=== PATIENT | female | born 1955 | race Caucasian/White ===

== ENCOUNTER 2017-10-30 15:27 | Emergency (ER) | payer BC ==
[2017-10-30] MEDS ORDERED: LIDOCAINE VISCOUS 2% 15 ML UDC MM STA (15:37)
[2017-10-30] MEDS ORDERED: MAG HYDROX/AL HYDROX/SIMETH 30 ML UDC PO STA (15:37)
[2017-10-30] MEDS ORDERED: ASPIRIN CHEW 81 MG TABLET PO STA (15:37)
--- NOTE | 2017-10-30 15:40 | ED Physician Documentation ---
PD HPI CHEST PAIN - Stated complaint Stated Complaint: CHEST PX - History obtained from History obtained from: Patient - History of Present Illness Timing - onset: Other (Sudden onset substernal chest pressure like cramping in her chest radiating to the jaw for half an hour starting at rest. She is a little more short of breath than she has been, she been on steroids undergoing a taper for the last month for asthma and pneumonia. She also felt briefly nauseous and sweaty because of the pain. She denies any pedal edema or recent travel. She has no known heart or coronary disease.) Review of Systems Ten Systems: 10 systems reviewed and negative Constitutional: denies: Fever, Chills Nose: denies: Rhinorrhea / runny nose, Congestion Cardiac: reports: Chest pain / pressure. denies: Palpitations, Pedal edema, Calf pain Respiratory: reports: Dyspnea. 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 - Present Medications Home Medications: Ambulatory Orders Medication Instructions Recorded Confirmed Esomeprazole Magnesium [Nexium] 20 mg PO DAILY 10/30/17 10/30/17 Estradiol 0.5 mg PO DAILY 10/30/17 10/30/17 Gabapentin 300 mg PO DAILY 10/30/17 10/30/17 Levothyroxine Sodium 50 mcg PO DAILY 10/30/17 10/30/17 Prednisone 10 mg PO DAILY 10/30/17 10/30/17 Venlafaxine [Effexor] 75 mg PO BID 10/30/17 10/30/17 - Allergies Allergies/Adverse Reactions: Allergies Allergy/AdvReac Type Severity Reaction Status Date / Time codeine AdvReac Itching Verified 10/30/17 15:57 - Social History Does the pt have substance abuse?: No - Family History Family history: reports: Non contributory PD ED PE NORMAL - Vitals Vital signs reviewed: Yes - General General: Alert and oriented X 3, Other (uncomfortable d/t pain) - HEENT HEENT: PERRL, EOMI - Neck Neck: Supple, no meningeal sign, No bony TTP - Cardiac Cardiac: RRR, No murmur - Respiratory Respiratory: No respiratory distress, Clear bilaterally - Abdomen Abdomen: Soft, Non tender - Back Back: No CVA TTP, No spinal TTP - Derm Derm: Normal color, Warm and dry - Extremities Extremities: No edema, No calf tenderness / cord - Neuro Neuro: Alert and oriented X 3, Normal speech - Psych Psych: Normal mood, Normal affect Results - Vitals Vitals: Vital Signs - 24 hr 10/30/17 10/30/17 10/30/17 16:12 16:34 17:55 Temperature Heart Rate 88 84 72 Respiratory 18 18 18 Rate Blood Pressure 156/90 H 158/84 H 160/89 H O2 Saturation 96 95 96 10/30/17 18:25 Temperature 36.1 C L Heart Rate Respiratory Rate Blood Pressure O2 Saturation Oxygen O2 Source Room air - EKG (time done) 1535 Rate: Rate (enter#) (87) Rhythm: NSR [place]: Normal Intervals: Normal ME QRS: Normal Ischemia: Normal ST segments Computer interpretation: Agree with computer 1609 Rate: Rate (enter#) (90) Rhythm: NSR [place]: Normal Intervals: Normal ME QRS: Normal Ischemia: Normal ST segments Compare to prior EKG: Unchanged from prior EKG (no change from #1) Computer interpretation: Agree with computer - Labs Labs: Laboratory Tests 10/30/17 10/30/17 10/30/17 15:53 16:33 16:33 WBC 13.5 H RBC 4.66 Hgb 14.3 Hct 43.9 MCV 94.1 MCH 30.8 MCHC 32.7 RDW 14.0 Plt Count 357 MPV 8.5 Neut # Not Reportable Lymph # Not Reportable [place] # Not Reportable Eos # Not Reportable Baso # Not Reportable Absolute Nucleated RBC Not Reportable Total Counted 100 Band Neuts % (Manual) 2 Abnorm Lymph % (Manual) 0 Nucleated RBC % Not Reportable Neutrophils # (Manual) 11.5 H Lymphocytes # (Manual) 1.8 Monocytes # (Manual) 0.3 Eosinophils # (Manual) 0.0 Basophils # (Manual) 0.0 Differential Comment MANUAL DIFFERENTIAL Manual Slide Review Indicated WBC Morphology 1+ VACUOLATION Platelet Estimate NORMAL (130-450,000) Platelet Morphology NORMAL APPEARANCE RBC Morph Micro Appear NORMAL APPEARANCE D-Dimer Sodium 136 Potassium 4.3 Chloride 100 L Carbon Dioxide 23 Anion Gap 13.0 BUN 14 Creatinine 0.8 Estimated GFR (MDRD) 73 L Glucose 160 H Calcium 8.9 Total Bilirubin 0.4 AST 15 ALT 17 Alkaline Phosphatase 53 Total Creatine Kinase 45 CK-MB (CK-2) 1.8 Troponin I < 0.04 Total Protein 6.9 Albumin 4.1 Globulin 2.8 Albumin/Globulin Ratio 1.5 Lipase 24 10/30/17 10/30/17 16:33 18:13 WBC RBC Hgb Hct MCV MCH MCHC RDW Plt Count MPV Neut # Lymph # [place] # Eos # Baso # Absolute Nucleated RBC Total Counted Band Neuts % (Manual) Abnorm Lymph % (Manual) Nucleated RBC % Neutrophils # (Manual) Lymphocytes # (Manual) Monocytes # (Manual) Eosinophils # (Manual) Basophils # (Manual) Differential Comment Manual Slide Review WBC Morphology Platelet Estimate Platelet Morphology RBC Morph Micro Appear D-Dimer 319.3 H Sodium Potassium Chloride Carbon Dioxide Anion Gap BUN Creatinine Estimated GFR (MDRD) Glucose Calcium Total Bilirubin AST ALT Alkaline Phosphatase Total Creatine Kinase CK-MB (CK-2) Troponin I < 0.04 Total Protein Albumin Globulin Albumin/Globulin Ratio Lipase - Rads (name of study) 1v chest Radiology: EMP read contemporaneously (NAD) CTA Chest Radiology: EMP read contemporaneously (NAD) PD MEDICAL DECISION MAKING - ED course ED course: 62-year-old woman with concerning chest pain starting at rest and very acute. EKG was normal and this was followed by a second EKG that was also normal and without interval change. She had no relief with a GI cocktail but did have good relief with morphine. Her pain was gone around 5 PM and she requested discharge. I recommended observation, however she declined, I recommended at least a second troponin and a CT angiogram of the chest given the borderline positive d-dimer and being on estrogens and she agreed with that. Departure - Departure Disposition: 01 Home, Self Care Clinical Impression: Chest pain Qualifiers: Chest pain type: unspecified Qualified Code(s): R07.9 - Chest pain, unspecified Condition: Stable Record reviewed to determine appropriate education?: Yes Instructions: ED Chest Pain Atypical Unkn Cause Comments: Return if chest pain recurs or further new symptoms.Follow-up with your physician, next available appointment. Your blood pressure was elevated today on check into the emergency department. This does not mean that you have hypertension, it is a common phenomenon to come to the emergency department and have elevated blood pressure. I recommend that you see your primary care physician within the week to have it rechecked when you are feeling better.
[2017-10-30] MEDS ORDERED: MORPHINE 2 MG/ML CARPUJECT IVP STA ×2 (15:58→16:18)
[2017-10-30 16:11] LABS: BASOPHILS % (AUTO) 0.6 %; EOSINOPHILS % (AUTO) 0.6 %; HGB - HEMOGLOBIN 14.3 g/dL (12.0-16.0); LYMPHOCYTES % (AUTO) 10.3 %; MEAN CORPUSCULAR HEMOGLOBIN 30.8 pg (27.0-31.0); MEAN CORPUSCULAR HGB CONC 32.7 g/dL (32.0-36.0); MEAN CORPUSCULAR VOLUME 94.1 fL (81.0-99.0); MEAN PLATELET VOLUME 8.5 fL (7.9-10.8); NEUTROPHILS % (AUTO) 85.5 %; PLT - PLATELET COUNT 357 10^3/uL (130-450); RED BLOOD COUNT 4.66 10^6/uL (4.20-5.40); WHITE BLOOD COUNT 13.5 x10^3/uL (4.8-10.8)
[2017-10-30 16:14] LABS: ABNORMAL LYMPHS % (MANUAL) 0 %
[2017-10-30] MEDS ORDERED: NITROGLYCERIN 2% PASTE TOP STA (16:18)
--- NOTE | 2017-10-30 16:21 | XRAY Preliminary Report ---
Exam: XR CHEST 1 VIEW X-RAY IMPRESSION: No acute cardiopulmonary abnormality. [facility] SITE ID: [id number]
--- NOTE | 2017-10-30 16:21 | XRAY Report ---
EXAM: CHEST RADIOGRAPHY EXAM DATE: 10/30/2017 04:11 PM. CLINICAL HISTORY: Chest pain. COMPARISON: None. TECHNIQUE: 1 view. FINDINGS: Lungs/Pleura: No focal opacities evident. No pleural effusion. No pneumothorax. Mediastinum: Within exam limitations, the cardiomediastinal contour is normal. Other: There are bilateral breast implant capsular calcifications. IMPRESSION: No acute cardiopulmonary abnormality. [facility] Referring Provider Line: [phone] SITE ID: [id number]
[2017-10-30 16:34] LABS: BAND NEUTROPHILS % (MANUAL) 2 %; LYMPHOCYTES # (MANUAL) 1.8 10^3/uL (1.5-3.5); LYMPHOCYTES % (MANUAL) 13 %; MONOCYTES # (MANUAL) 0.3 10^3/uL (0.0-1.0); NEUTROPHILS # (MANUAL) 11.5 10^3/uL (1.5-6.6); NEUTROPHILS % (MANUAL) 83 %; PLATELET ESTIMATE, MANUAL NORMAL (130-450,000) (NORMAL); PLATELET MORPHOLOGY NORMAL APPEARANCE (NORMAL); RBC MORPHOLOGY (MULTIPLE) NORMAL APPEARANCE (NORMAL)
[2017-10-30 16:35] LABS: DIFFERENTIAL COMMENT MANUAL DIFFERENTIAL
[2017-10-30 16:55] LABS: ALBUMIN 4.1 g/dL (3.2-5.5); ALBUMIN/GLOBULIN RATIO 1.5 (1.0-2.2); BILIRUBIN,TOTAL 0.4 mg/dL (0.2-1.0); CALCIUM 8.9 mg/dL (8.5-10.3); CREATININE 0.8 mg/dL (0.4-1.0); TOTAL PROTEIN 6.9 g/dL (6.7-8.2)
[2017-10-30 16:59] LABS: TROPONIN I < 0.04 ng/mL (<0.49)
[2017-10-30 17:02] LABS: CREATINE KINASE MB 1.8 ng/mL (0.6-6.3)
[2017-10-30] MEDS ORDERED: IOPAMIDOL-300 100 ML VIAL ONE (17:21)
[2017-10-30] MEDS ORDERED: IOPAMIDOL-300 100 ML VIAL IVP ONE (18:00)
--- NOTE | 2017-10-30 18:18 | CT Preliminary Report ---
Exam: CT CHEST ANGIO (PE) IMPRESSION: 1. No evidence for pulmonary emboli. 2. No acute findings are seen. [facility] SITE ID: [id number]
--- NOTE | 2017-10-30 18:19 | CT Report ---
EXAM: CT ANGIOGRAM CHEST EXAM DATE: 10/30/2017 05:57 PM. CLINICAL HISTORY: Chest pain. Elevated d-dimer. COMPARISON: None. TECHNIQUE: Routine helical imaging was performed through the chest in the pulmonary arterial phase. I V Contrast: 80 mL Isovue 300. Reconstructions: Coronal 3-D MIP reconstructions.Sagittal and coronal. In accordance with CT protocol optimization, one or more of the following dose reduction techniques w ere utilized for this exam: automated exposure control, adjustment of mA and/or KV based on patient s ize, or use of iterative reconstructive technique. FINDINGS: Pulmonary Arteries: No evidence for pulmonary emboli. Mediastinum: Normal heart size. No thoracic aortic aneurysm. No mediastinal or hilar lymphadenopathy. Upper abdomen: No acute findings are seen. Lungs/pleura: No pneumothorax. No pleural effusion. No consolidation or airspace disease. Small calci fied left upper lobe pulmonary nodule. Bones: No acute bone findings are seen. Bilateral breast implants with calcified ordaz. IMPRESSION: 1. No evidence for pulmonary emboli. 2. No acute findings are seen. [facility] Referring Provider Line: [phone] SITE ID: [id number]
[2017-10-30 18:55] VITALS: BP 139/85
== END 2017-10-30 19:04 | disposition home or self-care (01) ==
LOC: ED 15:27
DX: R07.9 Chest pain, unspecified (principal); R03.0 Elevated blood-pressure reading, without diagnosis of hypertension; E78.00 Pure hypercholesterolemia, unspecified
CPT/HCPCS: 36415; 71045; 71275; 80053; 82550; 82553; 83690; 84484; 85025; 85379; 93005; 96374; 96376; 99284; A9270; Q9967

== ENCOUNTER 2020-09-02 11:31 | Outpatient (CLI) | payer BC, MEDICARE ==
[2020-09-02 12:10] LABS: BASOPHILS # (AUTO) 0.1 10^3/uL (0.0-0.1); BASOPHILS % (AUTO) 0.9 %; EOSINOPHILS # (AUTO) 0.1 10^3/uL (0.0-0.7); EOSINOPHILS % (AUTO) 1.2 %; LYMPHOCYTES # (AUTO) 2.2 10^3/uL (1.5-3.5); LYMPHOCYTES % (AUTO) 30.1 %; MEAN CORPUSCULAR HEMOGLOBIN 30.8 pg (27.0-31.0); MEAN CORPUSCULAR HGB CONC 31.7 g/dL (32.0-36.0); MEAN CORPUSCULAR VOLUME 97.1 fL (81.0-99.0); MEAN PLATELET VOLUME 9.5 fL (7.9-10.8); MONOCYTES # (AUTO) 0.4 10^3/uL (0.0-1.0); MONOCYTES % (AUTO) 5.6 %; NEUTROPHILS # (AUTO) 4.6 10^3/uL (1.5-6.6); NEUTROPHILS % (AUTO) 61.8 %; PLT - PLATELET COUNT 281 10^3/uL (130-450); RED BLOOD COUNT 4.54 10^6/uL (4.20-5.40); RED CELL DISTRIBUTION WIDTH 13.1 % (12.0-15.0); WHITE BLOOD COUNT 7.5 x10^3/uL (4.8-10.8)
[2020-09-02 12:17] LABS: PT - PROTHROMBIN TIME 11.6 secs (9.9-12.6)
[2020-09-02 12:31] LABS: ALBUMIN 4.2 g/dL (3.2-5.5); ALBUMIN/GLOBULIN RATIO 1.6 (1.0-2.2); ALKALINE PHOSPHATASE 58 IU/L (42-121); ALT ALANINE AMINOTRANSFERASE 17 IU/L (10-60); AST ASPARTATE AMINOTRANSFERASE 14 IU/L (10-42); BILIRUBIN,TOTAL 0.6 mg/dL (0.2-1.0); BUN - BLOOD UREA NITROGEN 15 mg/dL (6-20); CALCIUM 9.3 mg/dL (8.5-10.3); CARBON DIOXIDE - CO2 27 mmol/L (21-32); CHLORIDE 100 mmol/L (101-111); CHOL/HDL RATIO 3.8 (<4.4); CHOLESTEROL 290 mg/dL; CREATININE 0.8 mg/dL (0.4-1.0); GLUCOSE 133 mg/dL (70-100); HDL CHOLESTEROL 76 mg/dL; LDL CHOLESTEROL,CALCULATED 191 mg/dL; LDL/HDL RATIO 2.5 (<4.4); SODIUM 138 mmol/L (135-145); TOTAL PROTEIN 6.9 g/dL (6.7-8.2); VLDL CHOLESTEROL 23 mg/dL
[2020-09-02 12:47] LABS: HEMOGLOBIN A1c% 7.2 % (4.27-6.07)
== END 2020-09-02 11:32 | disposition home or self-care (01) ==
LOC: LAB 11:31
PROVIDERS: ATTEND Physician Assistant
DX: E78.5 Hyperlipidemia, unspecified (principal); R73.03 Prediabetes; E03.9 Hypothyroidism, unspecified; R23.3 Spontaneous ecchymoses
CPT/HCPCS: 36415; 80053; 80061; 83036; 83721; 84443; 85025; 85610

== ENCOUNTER 2021-02-03 11:18 | Emergency (ER) | payer MEDICARE, BC ==
[2021-02-03] MEDS ORDERED: ONDANSETRON 4 MG/2 ML VIAL IVP STA (12:03)
[2021-02-03] MEDS ORDERED: SODIUM CHLORIDE 0.9% 1,000 ML IV STA (12:03)
--- NOTE | 2021-02-03 12:31 | ED Physician Documentation ---
History of Present Illness - Stated complaint Stated Complaint: NAUSEA - Chief complaint Chief Complaint: General - Additonal information Additional information: 65-year-old female presents emergency department for evaluation of headache naus ea and vomiting that began yesterday when she is applying her make-up before going out for [employer]. She reports that yesterday she vomited 3 times. She denies that she had chest pain shortness of air any abdominal pain with the symptoms. When she returned home yesterday afternoon she slept most of the day. 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 She denies recent travel sick contacts at home. She is fully vaccinated against Covid. Patient denies any history of hypertension or diabetes. She is however a smoker. Takes no prescribed medications. Review of Systems Constitutional: denies: Fever, Chills Eyes: reports: Reviewed and negative Ears: denies: Loss of hearing, Tinnitus/ringing Nose: reports: Reviewed and negative Throat: reports: Reviewed and negative Cardiac: denies: Chest pain / pressure, Palpitations Respiratory: denies: Dyspnea, Cough GI: reports: Nausea, Vomiting. denies: Abdominal Pain, Constipation, Diarrhea : denies: Dysuria, Frequency, Hesitancy Skin: denies: Rash, Lesions Musculoskeletal: reports: Other (chronic arthritis) Neurologic: reports: Headache. 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 - Present Medications Home Medications: Ambulatory Orders Medication Instructions Recorded Confirmed Levothyroxine Sodium 100 mcg PO DAILY 10/30/17 02/03/21 Prednisone 80 mg PO PRN PRN 10/30/17 02/03/21 Venlafaxine [Effexor] 150 mg PO DAILY 10/30/17 10/30/17 estradioL [Estradiol] 2 mg PO DAILY 10/30/17 02/03/21 Methotrexate [Methotrexate Sodium] 8 mg PO BID 02/03/21 02/03/21 traMADol [Ultram] 50 mg PO PRN PRN 02/03/21 02/03/21 - Allergies Allergies/Adverse Reactions: Allergies Allergy/AdvReac Type Severity Reaction Status Date / Time codeine AdvReac Itching Verified 10/30/17 15:57 dupilumab [From Dupixent Pen] AdvReac Rash Verified 02/03/21 11:29 - Social History Does the pt smoke?: Yes Smoking Status: Current every day smoker Does the pt drink ETOH?: No Does the pt have substance abuse?: No - Immunizations Immunizations are current?: Yes - POLST Patient has POLST: No PD ED PE EXPANDED - General General: Alert, No acute distress, Well developed/nourished - HEENT HEENT: PERRL, Ears normal, Moist mucous membranes - Eyes Eyes: PERRL, Normal accommodation, Other (NEGATIVE HINTS exam) - Neck Neck: Supple w/out meningeal sx, No tenderness - Cardiac Cardiac: Regular Rate, Radial strong equal, Cap refill < 2 sec. No: Murmur Present - Respiratory Respiratory: Clear to ausultation gee. No: Distress, Labored - Abdomen Abdomen: Normal Bowel sounds. No: Tender to palpation - Derm Derm: Normal color, Warm and dry. No: Rash - Extremities Extremities: Normal. No: Deformity, Tenderness - Neuro Neuro: Alert and Oriented X 3, CNII-XII intact, Cerebellar nl, Normal gait, Normal finger nose, Normal speech. No: Nystagmus - GCS Eye Opening: Spontaneous Motor: Obeys Commands Verbal: Oriented Total: 15 Results - Vitals Vitals: Vital Signs - 24 hr 02/03/21 02/03/21 11:22 12:57 Temperature 36.1 C L Heart Rate 82 67 Respiratory 14 14 Rate Blood Pressure 177/76 H 143/78 H O2 Saturation 100 100 Oxygen O2 Source Room air - EKG (time done) 1125 Rate: Rate (enter#) (73) Rhythm: NSR [place]: Normal Intervals: Normal [place]. No: Prolonged QT QRS: Low voltage Ischemia: Normal ST segments Compare to prior EKG: Unchanged from prior EKG Computer interpretation: Agree with computer - Labs Labs: Laboratory Tests 02/03/21 02/03/21 02/03/21 12:19 12:19 12:38 WBC 6.0 RBC 4.30 Hgb 13.9 Hct 43.0 MCV 100.0 H MCH 32.3 H MCHC 32.3 RDW 14.9 Plt Count 342 MPV 10.0 Neut # (Auto) 3.8 Lymph # (Auto) 1.6 [place] # (Auto) 0.4 Eos # (Auto) 0.1 Baso # (Auto) 0.0 Absolute Nucleated RBC 0.00 Nucleated RBC % 0.0 Sodium 140 Potassium 4.3 Chloride 103 Carbon Dioxide 27 Anion Gap 10.0 BUN 12 Creatinine 0.7 Estimated GFR (MDRD) 84 L Glucose 112 H Calcium 9.9 Total Bilirubin 0.4 AST 17 ALT 19 Alkaline Phosphatase 64 Total Protein 7.1 Albumin 4.5 Globulin 2.6 Albumin/Globulin Ratio 1.7 Lipase 44 Urine Color LIGHT YELLOW Urine Clarity HAZY Urine pH 5.0 Ur Specific [place] 1.015 Urine Protein NEGATIVE Urine Glucose (UA) NEGATIVE Urine Ketones NEGATIVE Urine Occult Blood NEGATIVE Urine Nitrite NEGATIVE Urine Bilirubin NEGATIVE Urine Urobilinogen 0.2 (NORMAL) Ur Leukocyte Esterase SMALL H Urine RBC 0-5 Urine WBC 11-25 H Ur Squamous Epith Cells MOD Squamous H Urine Bacteria Many H Urine Mucus Marked Strands Ur Microscopic Review INDICATED Urine Culture Comments NOT INDICATED PD MEDICAL DECISION MAKING - ED course Complexity details: reviewed results, re-evaluated patient, d/w patient ED course: 65-year-old female presents the emergency department for evaluation of acute nausea and vomiting that began yesterday. She also has had some associated dizziness that was very brief and occurred a few times after turning her head. She also reported a headache. Headache was not sudden onset nor worst of life. No associated fevers. Here in the emergency department the patient was given a liter of IV fluids Zofran as well as 25 mics of fentanyl with full resolution of symptoms. Her neuro exam was nonfocal. Normal cerebellar exam and a negative hints exam. I was unable to reproduce her dizziness with Von-Hallpike. Screening labs show nothing of concern. Her urine was grossly contaminated and she lacks urinary symptoms therefore will defer antibiotics at this time. I encourage patient to go home get plenty of rest and fluids. Her nausea and vomiting may simply be a viral etiology. No abdominal pain was elicited. I offered her prescription of Zofran but she declined she already has some at home. Emergent return precautions were discussed. Departure - Departure Disposition: 01 Home, Self Care Clinical Impression: Nausea and vomiting Qualifiers: Vomiting type: unspecified Vomiting Intractability: non-intractable Qualified Code(s): R11.2 - Nausea with vomiting, unspecified Condition: Stable Record reviewed to determine appropriate education?: Yes Follow-Up: ARASH WALSH PA-C [Primary Care Provider] - Comments: Milagro ortega are seen in the emergency department today for nausea and vomiting that began yesterday. As we discussed with the exception of a very mildly elevated blood pressure your vital signs are normal. Your screening labs also do not show any worrisome findings. We did give you some IV Zofran as well as a liter of IV fluids which seemed to markedly help your symptoms. The cause of your nausea and vomiting is not clear at this time however it is most likely a viral illness. I do recommend that you get plenty of fluids. Take the Zofran you have at home to help garcia off the nausea and get lots of rest. If at any point you have suddenly severe uncontrolled abdominal pain, fevers uncontrolled vomiting, develop any chest pain shortness of air or fainting episodes please return immediately to the emergency department. Please discuss this emergency department visit with your primary care provider as soon as possible.
[2021-02-03 12:32] LABS: BASOPHILS % (AUTO) 0.7 %; EOSINOPHILS # (AUTO) 0.1 10^3/uL (0.0-0.7); EOSINOPHILS % (AUTO) 1.7 %; HGB - HEMOGLOBIN 13.9 g/dL (12.0-16.0); LYMPHOCYTES # (AUTO) 1.6 10^3/uL (1.5-3.5); MEAN CORPUSCULAR HEMOGLOBIN 32.3 pg (27.0-31.0); MEAN CORPUSCULAR HGB CONC 32.3 g/dL (32.0-36.0); MONOCYTES # (AUTO) 0.4 10^3/uL (0.0-1.0); MONOCYTES % (AUTO) 6.6 %; NEUTROPHILS # (AUTO) 3.8 10^3/uL (1.5-6.6); NEUTROPHILS % (AUTO) 63.5 %; PLT - PLATELET COUNT 342 10^3/uL (130-450); RED CELL DISTRIBUTION WIDTH 14.9 % (12.0-15.0)
[2021-02-03 12:48] LABS: ALBUMIN 4.5 g/dL (3.2-5.5); ALBUMIN/GLOBULIN RATIO 1.7 (1.0-2.2); BILIRUBIN,TOTAL 0.4 mg/dL (0.2-1.0); CALCIUM 9.9 mg/dL (8.5-10.3); CREATININE 0.7 mg/dL (0.4-1.0); POTASSIUM 4.3 mmol/L (3.5-5.0); TOTAL PROTEIN 7.1 g/dL (6.7-8.2)
[2021-02-03 12:51] LABS: BILIRUBIN,URINE NEGATIVE (NEGATIVE); GLUCOSE, URINE (UA) NEGATIVE (NEGATIVE); KETONES,URINE (UA) NEGATIVE (NEGATIVE); LEUKOCYTE ESTERASE, URINE SMALL (NEGATIVE); NITRITE,URINE NEGATIVE (NEGATIVE); OCCULT BLOOD,URINE NEGATIVE (NEGATIVE); PROTEIN,URINE NEGATIVE (NEGATIVE); UROBILINOGEN,URINE 0.2 (NORMAL) E.U./dL (NORMAL)
[2021-02-03 12:53] LABS: CLARITY,URINE HAZY (CLEAR)
[2021-02-03] MEDS ORDERED: fentaNYL 100 MCG/2 ML VIAL IVP STA (12:59)
[2021-02-03 13:21] LABS: RBC,URINE 0-5 /HPF (0-5)
[2021-02-03 13:22] LABS: BACTERIA,URINE Many /HPF (None Seen); MUCUS,URINE Marked Strands; SQUAMOUS EPITHELIAL CELL,UR MOD Squamous (<= Few)
[2021-02-03 13:51] VITALS: BP 170/74
== END 2021-02-03 13:59 | disposition home or self-care (01) ==
LOC: ED 11:18
DX: R11.2 Nausea with vomiting, unspecified (principal); R51.9 Headache, unspecified; R42 Dizziness and giddiness; R03.0 Elevated blood-pressure reading, without diagnosis of hypertension; F17.200 Nicotine dependence, unspecified, uncomplicated
CPT/HCPCS: 36415; 80053; 81001; 81003; 83690; 85025; 87086; 93005; 96361; 96374; 96375; 99284

== ENCOUNTER 2021-04-20 16:31 | Outpatient (CLI) | payer MEDICARE, BC | END 2021-04-20 16:32 | disposition short-term general hospital (02) | LOC: EMS 16:31 | DX: R07.9 Chest pain, unspecified (principal); M54.2 Cervicalgia; M79.602 Pain in left arm; M79.601 Pain in right arm | CPT/HCPCS: A0425; A0427 ==

== ENCOUNTER 2021-06-15 13:28 | Outpatient (CLI) | payer MEDICARE, BC ==
[2021-06-15 13:54] LABS: CALCIUM 9.2 mg/dL (8.5-10.3); CREATININE 0.9 mg/dL (0.4-1.0); POTASSIUM 3.9 mmol/L (3.5-5.0)
== END 2021-06-15 13:29 | disposition home or self-care (01) ==
LOC: LAB 13:28
PROVIDERS: ATTEND Internal Medicine
DX: I10 Essential (primary) hypertension (principal)
CPT/HCPCS: 36415; 80048

== ENCOUNTER 2021-12-04 11:02 | Emergency (ER) | payer MEDICARE, BC ==
[2021-12-04 11:42] LABS: BASOPHILS # (AUTO) 0.1 10^3/uL (0.0-0.1); BASOPHILS % (AUTO) 0.9 %; EOSINOPHILS # (AUTO) 0.1 10^3/uL (0.0-0.7); EOSINOPHILS % (AUTO) 1.1 %; HGB - HEMOGLOBIN 14.3 g/dL (12.0-16.0); LYMPHOCYTES # (AUTO) 1.6 10^3/uL (1.5-3.5); LYMPHOCYTES % (AUTO) 19.4 %; MEAN CORPUSCULAR HEMOGLOBIN 30.9 pg (27.0-31.0); MEAN CORPUSCULAR HGB CONC 32.5 g/dL (32.0-36.0); MEAN PLATELET VOLUME 9.9 fL (7.9-10.8); MONOCYTES # (AUTO) 0.7 10^3/uL (0.0-1.0); MONOCYTES % (AUTO) 8.9 %; NEUTROPHILS # (AUTO) 5.7 10^3/uL (1.5-6.6); NEUTROPHILS % (AUTO) 69.5 %; PLT - PLATELET COUNT 319 10^3/uL (130-450); RED BLOOD COUNT 4.63 10^6/uL (4.20-5.40); RED CELL DISTRIBUTION WIDTH 13.2 % (12.0-15.0); WHITE BLOOD COUNT 8.2 x10^3/uL (4.8-10.8)
--- NOTE | 2021-12-04 11:49 | XRAY Report ---
PROCEDURE: Chest 1 View X-Ray INDICATIONS: Chest pain COMMENTS: CHEST PAIN/ PT STATES A HISTORY OR PA AND STENT PRIORS: ; 10/30/17 TECHNIQUE: One view of the chest was acquired. COMPARISON: 10/30/2017 FINDINGS: Surgical changes and devices: None. Lungs and pleura: No pleural effusions or pneumothorax. Lungs are clear. Mediastinum: Mediastinal contours appear normal. Heart size is normal. Bones and chest wall: No suspicious bony lesions. Overlying soft tissues appear unremarkable. Bila teral calcified breast implants are noted. IMPRESSION: No acute cardiopulmonary abnormality. Reviewed by: Robert Carcamo on 12/04/2021 11:48 AM [facility] Approved by: Robert Carcamo on 12/04/2021 11:48 AM [facility] Station ID: [id number]
--- NOTE | 2021-12-04 11:53 | ED Physician Documentation ---
History of Present Illness - Stated complaint Stated Complaint: CHEST PX - Chief complaint Chief Complaint: Cardiac - Additonal information Additional information: 66-year-old female presents emergency department for evaluation of worsening f atigue and recent episodes of chest pain. She reports to this provider that she had an N STEMI in March 2021. She was treated at [facility]. While there she did have a stent placed in her left circumflex artery. She is on aspirin and Plavix. Over the preceding 5 days she has had occasional bouts of chest pain with radiation to her jaw and arm. Described as pressure-like. The most severe episode 4 days ago lasted about 15 minutes. It did resolve after she chewed aspirin and took her nitroglycerin. 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 She expressed to her nuclear medicine supervisor that she was fatigued and wanted to leave early. Because of the history of recent CA her nuclear medicine supervisor requested that she come to the ER for further evaluation. Patient denies that she has any chest pain right now. Is not scheduled to follow-up with Dr. Henderson for about 1 year. Social: No alcohol. 4 to 5 cigarettes daily. Review of Systems Constitutional: denies: Fever, Chills Throat: reports: Reviewed and negative Cardiac: reports: Chest pain / pressure. 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 - Present Medications Home Medications: Ambulatory Orders Medication Instructions Recorded Confirmed Levothyroxine Sodium 100 mcg PO DAILY 10/30/17 02/03/21 Venlafaxine [Effexor] 150 mg PO DAILY 10/30/17 10/30/17 estradioL [Estradiol] 2 mg PO DAILY 10/30/17 02/03/21 predniSONE [Prednisone] 80 mg PO PRN PRN 10/30/17 02/03/21 Methotrexate [Methotrexate Sodium] 8 mg PO BID 02/03/21 02/03/21 traMADol [Ultram] 50 mg PO PRN PRN 02/03/21 02/03/21 - Allergies Allergies/Adverse Reactions: Allergies Allergy/AdvReac Type Severity Reaction Status Date / Time codeine AdvReac Itching Verified 12/04/21 11:12 dupilumab [From Dupixent Pen] AdvReac Rash Verified 12/04/21 11:12 - Social History Does the pt smoke?: Yes Smoking Status: Current every day smoker Does the pt drink ETOH?: No Does the pt have substance abuse?: No - Immunizations Immunizations are current?: Yes - POLST Patient has POLST: No PD ED PE NORMAL - General General: Alert and oriented X 3, No acute distress - HEENT HEENT: Atraumatic, Moist mucous membranes - Neck Neck: Supple, no meningeal sign, No adenopathy, Thyroid normal - Cardiac Cardiac: RRR, No murmur, No gallop - Respiratory Respiratory: No respiratory distress. 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 Eye Opening: Spontaneous Motor: Obeys Commands Verbal: Oriented GCS Score: 15 - Psych Psych: Normal mood Results - Vitals Vitals: Vital Signs - 24 hr 12/04/21 12/04/21 12/04/21 11:12 11:39 11:47 Temperature 36.8 C 36.6 C Heart Rate 80 80 73 Respiratory 19 16 15 Rate Blood Pressure 149/81 H 149/90 H 143/76 H O2 Saturation 100 100 96 12/04/21 12:36 Temperature Heart Rate 74 Respiratory 14 Rate Blood Pressure 144/90 H O2 Saturation 95 Oxygen O2 Source Room air - EKG (time done) 1106 Rate: Rate (enter#) (79) Rhythm: NSR [place]: Normal Intervals: Normal MI QRS: Normal, Low voltage Ischemia: Normal ST segments Compare to prior EKG: Old EKG unavailable Computer interpretation: Agree with computer - Labs Labs: Laboratory Tests 12/04/21 12/04/21 12/04/21 11:34 11:34 11:34 WBC 8.2 RBC 4.63 Hgb 14.3 Hct 44.0 MCV 95.0 MCH 30.9 MCHC 32.5 RDW 13.2 Plt Count 319 MPV 9.9 Neut # (Auto) 5.7 Lymph # (Auto) 1.6 Wood # (Auto) 0.7 Eos # (Auto) 0.1 Baso # (Auto) 0.1 Absolute Nucleated RBC 0.00 Nucleated RBC % 0.0 Sodium 137 Potassium 3.8 Chloride 101 Carbon Dioxide 26 Anion Gap 10.0 BUN 23 H Creatinine 0.7 Estimated GFR (MDRD) 84 L Glucose 136 H Calcium 9.4 Total Bilirubin 0.4 AST 20 ALT 28 Alkaline Phosphatase 68 Troponin I High Sens 3.3 Total Protein 6.7 Albumin 4.1 Globulin 2.6 Albumin/Globulin Ratio 1.6 Lipase 36 - Rads (name of study) cxr Radiology: Final report received (No acute cardiopulmonary abnormality.) PD MEDICAL DECISION MAKING - ED course Complexity details: reviewed results, re-evaluated patient, considered differential, d/w patient, d/w [employer] commerce consultant (sivakumar) ED course: 66-year-old female who has a history of coronary artery disease status post left circumflex stenting in March 2021 presents to the emergency department for evaluation of intermittent but recurrent chest pain over the last 5 days. None now for 24 hours. Patient reports that she had severe chest pain 3 days ago that was resolved after taking nitroglycerin once. 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 On screening labs and EKG are nonischemic and unchanged. High-sensitivity troponin is negative. Chest x-ray is without acute focal findings. Given the history of coronary artery disease status post stenting and relief of the chest pain over the last few days with nitroglycerin this case was discussed with Dr. Henderson her bag loader. I suspect she has clinically stable angina. She is going to arrange for outpatient ischemic stress testing. Her psych specialist Mrs. Fishman will be calling to arrange that follow-up. Patient is advised that if the chest pain returns and is not resolved despite taking nitroglycerin 2 x 15 minutes apart then she should return immediately to the ER. Departure - Departure Disposition: Home, Self Care Clinical Impression: Chest pain Qualifiers: Chest pain type: chest pain due to myocardial ischemia Ischemic chest pain type: stable angina pectoris Qualified Code(s): I20.8 - Other forms of angina pectoris Condition: Stable Record reviewed to determine appropriate education?: Yes Instructions: Angina Dc Comments: Milagro ortega are seen in the emergency department today for chest pain that occurred over the last few days. Though you did not have any chest pain while here in the ER. Your screening labs, troponin, EKG and chest x-ray are all essentially normal. You do have a history of an NSTEMI in March 2021 which was treated at [facility]. You did receive a stent to there. I discussed this case with Dr. Henderson your bag loader. You can expect that her psych specialist Mrs. Fishman will be giving you a call over the next few days to arrange an outpatient stress test for further evaluation of your heart. If at any point you develop worsening chest pain, your chest pain is not resolved despite taking the nitroglycerin 2 times, 15 minutes apart then you should return return immediately to the ER. Please continue to take all your previously scheduled medications as otherwise prescribed
[2021-12-04 11:59] LABS: ALBUMIN 4.1 g/dL (3.2-5.5); ALBUMIN/GLOBULIN RATIO 1.6 (1.0-2.2); BILIRUBIN,TOTAL 0.4 mg/dL (0.2-1.0); CALCIUM 9.4 mg/dL (8.5-10.3); CREATININE 0.7 mg/dL (0.4-1.0); POTASSIUM 3.8 mmol/L (3.5-5.0); TOTAL PROTEIN 6.7 g/dL (6.7-8.2)
[2021-12-04 13:04] VITALS: BP 140/80
== END 2021-12-04 13:04 | disposition home or self-care (01) ==
LOC: ED 11:02
DX: I25.10 Atherosclerotic heart disease of native coronary artery without angina pectoris (principal); I25.2 Old myocardial infarction; Z95.5 Presence of coronary angioplasty implant and graft; F17.210 Nicotine dependence, cigarettes, uncomplicated
CPT/HCPCS: 36415; 80053; 83690; 84484; 85025; 93005; 99284

== ENCOUNTER 2021-12-22 10:11 | Emergency (ER) | payer MEDICARE, BC ==
--- NOTE | 2021-12-22 10:28 | ED Physician Documentation ---
PD HPI URI - Stated complaint Stated Complaint: FEVER/HEAD PX/COUGH - Chief complaint Chief Complaint: Fever - History obtained from History obtained from: Patient - History of Present Illness Timing - onset: How many days ago (4) Timing duration: Days (4) Timing details: Gradual onset, Still present Associated symptoms: Fever, Chills, Nasal congestion, Dry cough, Dyspnea. No: Hemoptysis Contributing factors: COPD / asthma. No: Sick contact, Travel, Unimmunized Worsened by: Activity, Other (coughing) Similar symptoms before: Diagnosis (history of asthma, with exacerbations due to illnesses in the past.) Recently seen: Not recently seen Review of Systems Constitutional: reports: Fever, Chills, Myalgias Nose: reports: Congestion. denies: Rhinorrhea / runny nose Throat: denies: Sore throat Cardiac: denies: Chest pain / pressure Respiratory: reports: Dyspnea, Cough, Wheezing GI: reports: Nausea. 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 - Present Medications Home Medications: Ambulatory Orders Medication Instructions Recorded Confirmed Levothyroxine Sodium 100 mcg PO DAILY 10/30/17 02/03/21 Venlafaxine [Effexor] 150 mg PO DAILY 10/30/17 10/30/17 estradioL [Estradiol] 2 mg PO DAILY 10/30/17 02/03/21 predniSONE [Prednisone] 80 mg PO PRN PRN 10/30/17 02/03/21 Methotrexate [Methotrexate Sodium] 8 mg PO BID 02/03/21 02/03/21 traMADol [Ultram] 50 mg PO PRN PRN 02/03/21 02/03/21 Amoxicillin 500 mg PO TID #18 cap 12/22/21 Benzonatate [Tessalon] 100 mg PO TID PRN #20 cap 12/22/21 - Allergies Allergies/Adverse Reactions: Allergies Allergy/AdvReac Type Severity Reaction Status Date / Time codeine AdvReac Itching Verified 12/22/21 10:19 dupilumab [From Ahandyhand Pen] AdvReac Rash Verified 12/22/21 10:19 - Social History Does the pt smoke?: Yes Smoking Status: Current every day smoker Does the pt drink ETOH?: No Does the pt have substance abuse?: No - Immunizations Immunizations are current?: Yes - POLST Patient has POLST: No PD ED PE NORMAL - Vitals Vital signs reviewed: Yes - General General: Alert and oriented X 3, No acute distress, Well developed/nourished - HEENT HEENT: Ears normal, Pharynx benign - Neck Neck: Supple, no meningeal sign, No adenopathy - Cardiac Cardiac: RRR, No murmur - Respiratory Respiratory: No respiratory distress. No: Other (wheezing diffusely bilaterally without coarse sounds.) - Abdomen Abdomen: Soft, Non tender - Back Back: No CVA TTP - Derm Derm: Normal color, Warm and dry - Extremities Extremities: No edema, No calf tenderness / cord - Neuro Neuro: Alert and oriented X 3, No motor deficit, Normal speech Results - Vitals Vitals: Vital Signs - 24 hr 12/22/21 12/22/21 12/22/21 10:15 10:55 11:49 Temperature 36.1 C L Heart Rate 97 80 74 Respiratory 16 20 16 Rate Blood Pressure 137/80 H 122/85 H O2 Saturation 99 95 Oxygen O2 Source Room air - Labs Labs: Laboratory Tests 12/22/21 10:50 Nasal Adenovirus (PCR) NOT DETECTED Nasal B. parapertussis DNA (PCR) NOT DETECTED Nasal Coronavir 229E PCR NOT DETECTED Nasal Coronavir HKU1 PCR NOT DETECTED Nasal Coronavir NL63 PCR NOT DETECTED Nasal Coronavir OC43 PCR NOT DETECTED Nasal Enterovir/Rhinovir PCR NOT DETECTED Nasal Influenza B PCR NOT DETECTED Nasal Influenza A PCR NOT DETECTED Nasal Parainfluen 1 PCR NOT DETECTED Nasal Parainfluen 2 PCR NOT DETECTED Nasal Parainfluen 3 PCR DETECTED A Nasal Parainfluen 4 PCR NOT DETECTED Nasal RSV (PCR) NOT DETECTED Nasal B.pertussis DNA PCR NOT DETECTED Nasal C.pneumoniae (PCR) NOT DETECTED Hao Human Metapneumo PCR NOT DETECTED Nasal M.pneumoniae (PCR) NOT DETECTED Nasal SARS-CoV-2 (PCR) NOT DETECTED - Rads (name of study) chest xray Radiology: Prelim report reviewed (no infiltrates), See rad report PD MEDICAL DECISION MAKING - ED course Complexity details: reviewed results, re-evaluated patient (improved moderately with Duoneb. She has nebulizer at home. Has Prednisone at home. ), considered differential (she would like to go home and be called about the Resp Panel. ), d/w patient Departure - Departure Disposition: 01 Home, Self Care Clinical Impression: Dyspnea Exacerbation of asthma Qualifiers: Asthma severity: unspecified severity Asthma persistence: intermittent Qualified Code(s): J45.21 - Mild intermittent asthma with (acute) exacerbation Upper respiratory infection Qualifiers: URI type: unspecified URI Qualified Code(s): J06.9 - Acute upper respiratory infection, unspecified Condition: Stable Follow-Up: ARASH WALSH PA-C [Primary Care Provider] - Prescriptions: Amoxicillin 500 mg PO TID #18 cap Benzonatate [Tessalon] 100 mg PO TID PRN #20 cap PRN Reason: Cough Comments: Your chest x-ray is clear without any signs of pneumonia. Your respiratory panel test is still pending and should result later. We will call you if with the results. I would suggest continuing with your nebulizer 4 times a day regularly for the next several days to week and then as needed. Continue your other usual medicines. I would suggest using your prednisone 20 mg daily for the next 4 to 5 days and then discontinue. You can add in Tessalon/benzonatate if needed for cough. If not improving well over the next couple of days, you could consider adding amoxicillin antibiotic as directed. Your illness is more likely to be viral but there are guidelines that suggest the use of antibiotics in the setting of underlying lung disease such as COPD or asthma if not improving well. Forms: Activity restrictions Discharge Date/Time: 12/22/21 11:50
[2021-12-22] MEDS ORDERED: CHERRY SYRUP 10 ML UDC PO ONE (10:43)
[2021-12-22] MEDS ORDERED: BENZONATATE 100 MG CAPSULE PO STA (10:43)
[2021-12-22] MEDS ORDERED: IPRATROPIUM/ALBUTEROL 3 ML NEB INH STA (10:43)
[2021-12-22] MEDS ORDERED: DEXAMETHASONE 10 MG/ML VIAL PO STA (10:43)
--- NOTE | 2021-12-22 10:58 | XRAY Report ---
PROCEDURE: Chest 1 View X-Ray INDICATIONS: chest pain TECHNIQUE: One view of the chest was acquired. COMPARISON: 12/04/2021 FINDINGS: Surgical changes and devices: Bilateral breast implants.. Lungs and pleura: No pleural effusions or pneumothorax. Lungs are clear. Mediastinum: Mediastinal contours appear normal. Heart size is normal. Bones and chest wall: No suspicious bony lesions. Overlying soft tissues appear unremarkable. IMPRESSION: No acute cardiopulmonary disease. Reviewed by: Mary Ann Vaca MD on 12/22/2021 10:57 AM PDT Approved by: Mary Ann Vaca MD on 12/22/2021 10:57 AM PDT Station ID: [id number]
[2021-12-22 11:50] VITALS: BP 122/85
[2021-12-22 11:58] LABS: CORONAVIRUS 229E-RESP PCR NOT DETECTED; CORONAVIRUS HKU1-RESP PCR NOT DETECTED; CORONAVIRUS NL63-RESP PCR NOT DETECTED; CORONAVIRUS OC43-RESP PCR NOT DETECTED; HUMAN METAPNEUMOVIRUS NOT DETECTED; INFLUENZA A- RESP PCR PANEL NOT DETECTED; RHINOVIRUS/ENTEROVIRUS NOT DETECTED; SARS-CoV-2 -RESP PCR PANEL NOT DETECTED
[2021-12-22 11:59] LABS: B. PARAPERTUSSIS- RESP PCR PAN NOT DETECTED; B. PERTUSSIS- RESP PCR PANEL NOT DETECTED; C. PNEUMONIAE- RESP PCR PANEL NOT DETECTED; INFLUENZA B - RESP PCR PANEL NOT DETECTED; M. PNEUMONIAE- RESP PCR PANEL NOT DETECTED; PARAINFLUENZA VIRUS 1 NOT DETECTED; PARAINFLUENZA VIRUS 2 NOT DETECTED; PARAINFLUENZA VIRUS 3 DETECTED; PARAINFLUENZA VIRUS 4 NOT DETECTED; RSV- RESP PCR PANEL NOT DETECTED
== END 2021-12-22 11:50 | disposition home or self-care (01) ==
LOC: ED 10:11
DX: J45.21 Mild intermittent asthma with (acute) exacerbation (principal); J06.9 Acute upper respiratory infection, unspecified; F17.200 Nicotine dependence, unspecified, uncomplicated
CPT/HCPCS: 71045; 87631; 94640; 94664; 99282; 99284; A9270; 0202U

== ENCOUNTER 2022-01-25 13:17 | Outpatient (CLI) | payer MEDICARE, BC ==
[2022-01-25 13:49] LABS: BASOPHILS # (AUTO) 0.1 10^3/uL (0.0-0.1); BASOPHILS % (AUTO) 0.9 %; EOSINOPHILS # (AUTO) 0.1 10^3/uL (0.0-0.7); EOSINOPHILS % (AUTO) 1.6 %; HCT - HEMATOCRIT 40.6 % (37.0-47.0); HGB - HEMOGLOBIN 13.5 g/dL (12.0-16.0); LYMPHOCYTES # (AUTO) 1.7 10^3/uL (1.5-3.5); LYMPHOCYTES % (AUTO) 21.9 %; MEAN CORPUSCULAR HEMOGLOBIN 32.1 pg (27.0-31.0); MEAN CORPUSCULAR HGB CONC 33.3 g/dL (32.0-36.0); MEAN CORPUSCULAR VOLUME 96.4 fL (81.0-99.0); MEAN PLATELET VOLUME 9.6 fL (7.9-10.8); MONOCYTES # (AUTO) 0.6 10^3/uL (0.0-1.0); MONOCYTES % (AUTO) 7.6 %; NEUTROPHILS # (AUTO) 5.2 10^3/uL (1.5-6.6); NEUTROPHILS % (AUTO) 67.6 %; PLT - PLATELET COUNT 373 10^3/uL (130-450); RED BLOOD COUNT 4.21 10^6/uL (4.20-5.40); RED CELL DISTRIBUTION WIDTH 13.1 % (12.0-15.0); WHITE BLOOD COUNT 7.7 x10^3/uL (4.8-10.8)
[2022-01-25 14:06] LABS: CREATININE,URINE 84.2 mg/dL; MICROALBUM/CREATININE RATIO,UR 5.9 ug/mg (<30.0); MICROALBUMIN,URINE 0.5 mg/dL (0-300.0)
[2022-01-25 14:09] LABS: CHOL/HDL RATIO 2.8 (<4.4); CHOLESTEROL 160 mg/dL; HDL CHOLESTEROL 57 mg/dL; LDL CHOLESTEROL,CALCULATED 78 mg/dL; LDL/HDL RATIO 1.4 (<4.4); TRIGLYCERIDES 123 mg/dL; VLDL CHOLESTEROL 25 mg/dL
[2022-01-25 14:22] LABS: THYROID STIMULATING HORMONE 1.69 uIU/mL (0.34-5.60)
[2022-01-25 14:24] LABS: FREE T4 (FREE THYROXINE) 1.1 ng/dL (0.58-1.64)
[2022-01-26 11:34] LABS: ESTIMATED AVERAGE GLUCOSE 151 mg/dL (70-100); HEMOGLOBIN A1c% 6.9 % (4.27-6.07)
[2022-01-27 00:07] LABS: HCV AB <0.1 s/co ratio (0.0-0.9)
== END 2022-01-25 13:18 | disposition home or self-care (01) ==
LOC: LAB 13:17
PROVIDERS: ATTEND Physician Assistant
DX: E11.65 Type 2 diabetes mellitus with hyperglycemia (principal); E03.9 Hypothyroidism, unspecified; E78.2 Mixed hyperlipidemia; Z11.59 Encounter for screening for other viral diseases
CPT/HCPCS: 36415; 80061; 82043; 82570; 83036; 83721; 84439; 84443; 85025; 86803; 87522

== ENCOUNTER 2022-03-23 08:36 | Outpatient (CLI) | payer MEDICARE, BC ==
--- NOTE | 2022-03-23 11:59 | XRAY Report ---
PROCEDURE: Chest 2 View X-Ray INDICATIONS: asthmatic bronchitis TECHNIQUE: 2 view(s) of the chest. COMPARISON: 12/22/2021. FINDINGS: Surgical changes and devices: Bilateral breast implants are again noted. Lungs and pleura: No pleural effusions or pneumothorax. Lungs are clear. Mediastinum: Mediastinal contours are normal. Heart size is normal. Bones and chest wall: No suspicious bony abnormalities. Soft tissues appear unremarkable. IMPRESSION: Stable examination of the chest. No acute cardiopulmonary abnormalities or focal airspac e disease. Reviewed by: Thierno Robbins MD on 03/23/2022 11:57 AM PDT Approved by: Thierno Robbins MD on 03/23/2022 11:57 AM PDT Station ID: [id number]
== END 2022-03-23 08:37 | disposition home or self-care (01) ==
LOC: DI 08:36
PROVIDERS: ATTEND Family Medicine
DX: J45.909 Unspecified asthma, uncomplicated (principal)

== ENCOUNTER 2022-04-29 10:28 | Emergency (ER) | payer MEDICARE, BC ==
[2022-04-29 10:41] VITALS: BP 110/68
--- OUTSIDE RECORDS SUMMARY | 2022-04-29 10:55 | EXTERNAL MEDICAL SUMMARY RPT | Continuity of Care Document ---
:1955 Author Organization [facility] [address] [place] [address] Phone Allergies and Intolerances date description facility type (no date) Mild [facility] (unknown) (no date) [id number] Reductase Inhibitor [facility] (unknown) (no date) codeine [facility] (unknown) Encounters No information. Functional Status No information. Immunizations No information. Medications No information. Problems No information. Procedures date description facility [id number] [facility] Results/Labs test date author facility value unit interpret ation Result panel 1 (unknown) (no date) (unknown) (unknown) Negative (units (unkn own) unknown) Result panel 2 (unknown) (no (unknown) (unknown) (no value) (units (unk nown) date) unknown) (unknown) (no (unknown) (unknown) [address] [place] [address] (units (unknown) date) unknown) (unknown) (no (unknown) (unknown) [place] (units ( unknown) date) [id number] unknown) (unknown) (no (unknown) (unknown) [facility] (units (unknown) date) unknown) (unknown) (no (unknown) (unknown) Signed (units (unkno wn) date) unknown) (unknown) (no (unknown) (unknown) XRay Report (units (un known) date) unknown) (unknown) (no (unknown) (unknown) (no value) (units (unk nown) date) unknown) (unknown) (no (unknown) (unknown) 03/26/22 (units (unkno wn) date) unknown) (unknown) (no (unknown) (unknown) 1. Findings (units (un known) date) consistent with unknown) COPD redemonstrated without acute consolidation. (unknown) (no (unknown) (unknown) Approved by: (units (u nknown) date) jass Underwood M.D. on 03/26/2022 at 2:47 (unknown) (no (unknown) (unknown) Bones and chest (units (unknown) date) wall: No unknown) suspicious bony abnormalities. Soft tissues appear (unknown) (no (unknown) (unknown) CHEST 2V, (units (unkn own) date) 06/06/2020, 14:48. unknown) (unknown) (no (unknown) (unknown) COMPARISON: (units (un known) date) [facility], unknown) CR, XR CHEST 2V, 12/16/2018, 14:34. [place] (unknown) (no (unknown) (unknown) Dictated by: (units (u nknown) date) Rory Dillon, unknownSerina Noyola on 03/26/2022 at 2:46 (unknown) (no (unknown) (unknown) FINDINGS: (units (unkn own) date) unknown) (unknown) (no (unknown) (unknown) IMPRESSION: (units (un known) date) unknown) (unknown) (no (unknown) (unknown) INDICATIONS: (units (u nknown) date) short of breath unknown) (unknown) (no (unknown) (unknown) Lungs and (units (unkn own) date) pleura: There is unknown) hyperinflation of the lungs with flattening of the (unknown) (no (unknown) (unknown) Mediastinum: (units (u nknown) date) Mediastinal unknown) contours are normal. Heart size is normal. (unknown) (no (unknown) (unknown) Surgical changes (units (unknown) date) and devices: unknown) There are peripherally calcified breast implants (unknown) (no (unknown) (unknown) TECHNIQUE: 2 (units ( unknown) date) views of the unknown) chest were acquired. (unknown) (no (unknown) (unknown) hemidiaphragms (units (unknown) date) compatible with unknown) COPD. No acute consolidation. No pleural (unknown) (no (unknown) (unknown) pneumothorax. (units ( unknown) date) unknown) (unknown) (no (unknown) (unknown) redemonstrated (units (unknown) date) bilaterally. unknown) (unknown) (no (unknown) (unknown) unremarkable. (units ( unknown) date) unknown) (unknown) (no (unknown) (unknown) Accession (units (unkn own) date) Number: unknown) [id number] (unknown) (no (unknown) (unknown) Age/Sex: 66 / F (units (unknown) date) Date of unknown) Service: (unknown) (no (unknown) (unknown) : 1955 (units (unknown) date) Acct:[id number] unknown) (unknown) (no (unknown) (unknown) Hospital, CR, XR (units (unknown) date) unknown) (unknown) (no (unknown) (unknown) Loc: ED (units (unkno wn) date) unknown) (unknown) (no (unknown) (unknown) Ordering (units (unkno wn) date) Provider: unknown) Miguel Ashraf MD (unknown) (no (unknown) (unknown) PROCEDURE: XR (units (unknown) date) CHEST 2V unknown) (unknown) (no (unknown) (unknown) Patient: (units (unkno wn) date) Memo Clifton unknown) en E M (unknown) (no (unknown) (unknown) Procedure: XR (units ( unknown) date) chest 2V unknown) (unknown) (no (unknown) (unknown) R#: [id number] (units (unknown) date) unknown) (unknown) (no (unknown) (unknown) effusions or (units (u nknown) date) unknown) Result panel 3 (unknown) (no (unknown) (unknown) (no value) (units (unk nown) date) unknown) (unknown) (no (unknown) (unknown) Date of Service: (units (unknown) date) 03/26/22 unknown) (unknown) (no (unknown) (unknown) (no value) (units (unk nown) date) unknown) (unknown) (no (unknown) (unknown) 1 inh INHALATION (units (unknown) date) BID unknown) (unknown) (no (unknown) (unknown) 10 mg PO DAILY (units (unknown) date) unknown) (unknown) (no (unknown) (unknown) 100 mcg PO DAILY (units (unknown) date) unknown) (unknown) (no (unknown) (unknown) 20 mg PO DAILY (units (unknown) date) unknown) (unknown) (no (unknown) (unknown) 3 ml INHALATION (units (unknown) date) Q6-8H PRN (Reason: unknown) shortness of breath or wheezing) Qty: 90 (unknown) (no (unknown) (unknown) 4 mg PO Q8H PRN (units (unknown) date) (Reason: nausea and unknown) vomiting) Qty: 7 1RF (unknown) (no (unknown) (unknown) 40 mg SUBCUT DAILY (units (unknown) date) Qty: 4 0RF unknown) (unknown) (no (unknown) (unknown) 5 mg PO DAILY (units ( unknown) date) unknown) (unknown) (no (unknown) (unknown) 5 mg PO Q12HR PRN (units (unknown) date) (Reason: muscle unknown) spasm) Qty: 10 0RF (unknown) (no (unknown) (unknown) 5 mg PO Q4H PRN (units (unknown) date) (Reason: pain) Qty: unknown) 42 0RF (unknown) (no (unknown) (unknown) 50 mg PO BID PRN (units (unknown) date) (Reason: pain) Qty: unknown) 0 (unknown) (no (unknown) (unknown) 75 mg PO DAILY (units (unknown) date) unknown) (unknown) (no (unknown) (unknown) Allergies (units (unkn own) date) unknown) (unknown) (no (unknown) (unknown) Documented By: TV (units (unknown) date) unknown) (unknown) (no (unknown) (unknown) ED Orders (units (unkn own) date) unknown) (unknown) (no (unknown) (unknown) Emergency Report (units (unknown) date) unknown) (unknown) (no (unknown) (unknown) Home Medications (units (unknown) date) unknown) (unknown) (no (unknown) (unknown) [facility] (units (unknown) date) [address] unknown) [place] [address] (unknown) (no (unknown) (unknown) Lab Results (units (un known) date) unknown) (unknown) (no (unknown) (unknown) Last Admin: (units (un known) date) 03/26/22 01:13 unknown) Dose: 3 ml (unknown) (no (unknown) (unknown) Last Admin: (units (un known) date) 03/26/22 01:14 unknown) Dose: 2.5 mg (unknown) (no (unknown) (unknown) Previous Rx's (units ( unknown) date) unknown) (unknown) (no (unknown) (unknown) Rx Instructions: (units (unknown) date) unknown) (unknown) (no (unknown) (unknown) Stop: 03/26/22 (units (unknown) date) 01:05 unknown) (unknown) (no (unknown) (unknown) Stop: 03/26/22 (units (unknown) date) 01:44 unknown) (unknown) (no (unknown) (unknown) Vital Signs - 8 hr (units (unknown) date) unknown) (unknown) (no (unknown) (unknown) exempt postop (units ( unknown) date) unknown) (unknown) (no (unknown) (unknown) (no value) (units (unk nown) date) unknown) (unknown) (no (unknown) (unknown) 00:50 (units (unkno wn) date) unknown) (unknown) (no (unknown) (unknown) 03/26/22 (units (unkno wn) date) Range/Units unknown) (unknown) (no (unknown) (unknown) cetirizine 5 mg (units (unknown) date) Tablet unknown) (unknown) (no (unknown) (unknown) diazepam [Valium] 5 (unit s (unknown) date) mg tablet unknown) (unknown) (no (unknown) (unknown) enoxaparin (units (unk nown) date) [Lovenox] 40 mg/0.4 unknown) mL syringe (unknown) (no (unknown) (unknown) esomeprazole (units (u nknown) date) magnesium [Nexium unknown) 24HR] 20 mg Capsule,Delayed Release(Dr/Ec) (unknown) (no (unknown) (unknown) fluticasone (units (un known) date) propion-salmeterol unknown) [Advair Diskus] 500-50 mcg/dose Blister With (unknown) (no (unknown) (unknown) ipratropium-albuter (unit s (unknown) date) ol 0.5 mg-3 mg(2.5 unknown) mg base)/3 mL solution for nebulization (unknown) (no (unknown) (unknown) levothyroxine 100 (units (unknown) date) mcg tablet unknown) (unknown) (no (unknown) (unknown) montelukast 10 mg (units (unknown) date) tablet unknown) (unknown) (no (unknown) (unknown) ondansetron HCl (units (unknown) date) [Zofran] 4 mg tablet unknown) (unknown) (no (unknown) (unknown) oxycodone 5 mg (units (unknown) date) tablet unknown) (unknown) (no (unknown) (unknown) tramadol 50 MG (units (unknown) date) tablet unknown) (unknown) (no (unknown) (unknown) venlafaxine 75 mg (units (unknown) date) capsule,extended unknown) release 24hr (unknown) (no (unknown) (unknown) 03/26/22 (units (unkno wn) date) unknown) (unknown) (no (unknown) (unknown) Medication (units (unk nown) date) Instructions unknown) Recorded (unknown) (no (unknown) (unknown) Medication (units (unk nown) date) Instructions unknown) Recorded Confirmed (unknown) (no (unknown) (unknown) tabs (units (unkno wn) date) unknown) (unknown) (no (unknown) (unknown) #: [id number] (units ( unknown) date) unknown) (unknown) (no (unknown) (unknown) (2.5 mg base)/3 mL (units (unknown) date) nebulization unknown) shortness of breath or wheezing (unknown) (no (unknown) (unknown) (Zofran) vomiting (units (unknown) date) #7 tabs unknown) (unknown) (no (unknown) (unknown) 00:50 03/26/22 (units (unknown) date) unknown) (unknown) (no (unknown) (unknown) 01:15 (units (unkno wn) date) unknown) (unknown) (no (unknown) (unknown) 03/26/22 00:50 (units (unknown) date) unknown) (unknown) (no (unknown) (unknown) 03/26/22 01:02 (units (unknown) date) unknown) (unknown) (no (unknown) (unknown) 03/26/22 01:33 (units (unknown) date) unknown) (unknown) (no (unknown) (unknown) 03/26/22 01:43 (units (unknown) date) unknown) (unknown) (no (unknown) (unknown) 0RF (units (unkno wn) date) unknown) (unknown) (no (unknown) (unknown) 24HR) (units (unkno wn) date) unknown) (unknown) (no (unknown) (unknown) Age/Sex: 66 / F (units (unknown) date) unknown) (unknown) (no (unknown) (unknown) Albuterol (units (unkn own) date) (Albuterol 2.5 Mg/3 unknown) Ml Neb (Adult)) 2.5 mg INH NOW ONE (unknown) (no (unknown) (unknown) Albuterol/Ipratropi (unit s (unknown) date) um unknown) (Albuterol/Ipratropi um 3 Ml Ampul) 3 ml INH NOW ONE (unknown) (no (unknown) (unknown) Allergy/AdvReac (units (unknown) date) Type Severity unknown) Reaction Status Date / Time (unknown) (no (unknown) (unknown) Asthma (units (unkno wn) date) unknown) (unknown) (no (unknown) (unknown) BACK: No flank (units (unknown) date) tenderness. unknown) (unknown) (no (unknown) (unknown) Blood Pressure (units (unknown) date) 180/80 H 03/26/22 unknown) 00:50 (unknown) (no (unknown) (unknown) Blood Pressure (units (unknown) date) 180/80 H unknown) (unknown) (no (unknown) (unknown) CARDIOVASCULAR: (units (unknown) date) Denies chest pain, unknown) palpitations (unknown) (no (unknown) (unknown) CARDIOVASCULAR: (units (unknown) date) Regular rate and unknown) rhythm without murmurs (unknown) (no (unknown) (unknown) CBC Auto Diff (units ( unknown) date) [Complete Blood unknown) Count AUTO DIFF] Stat (unknown) (no (unknown) (unknown) CMP [Comprehensive (units (unknown) date) Metabolic Panel] unknown) Stat (unknown) (no (unknown) (unknown) COVID19 -Nasal (units (unknown) date) RAPID/Pre-Proc Stat unknown) (unknown) (no (unknown) (unknown) Chest [XR chest 2V] (unit s (unknown) date) Stat unknown) (unknown) (no (unknown) (unknown) Chief Complaint: (units (unknown) date) Shortness of unknown) Breath/Dyspnea (unknown) (no (unknown) (unknown) Course (units (unkno wn) date) unknown) (unknown) (no (unknown) (unknown) DDD (degenerative (units (unknown) date) disc disease) unknown) (unknown) (no (unknown) (unknown) DJD (degenerative (units (unknown) date) joint disease) unknown) (unknown) (no (unknown) (unknown) : 1955 (units (unknown) date) Acct:[id number] unknown) (unknown) (no (unknown) (unknown) Departure (units (unkn own) date) unknown) (unknown) (no (unknown) (unknown) Depression (units (unk nown) date) unknown) (unknown) (no (unknown) (unknown) Jen Ma PA-C (unit s (unknown) date) [Primary Care unknown) Provider] - (unknown) (no (unknown) (unknown) Device (units (unkno wn) date) unknown) (unknown) (no (unknown) (unknown) Discharge Plan (units (unknown) date) unknown) (unknown) (no (unknown) (unknown) Discontinued (units (u nknown) date) Medications unknown) (unknown) (no (unknown) (unknown) ENT: Mucous (units (u nknown) date) membranes moist. unknown) (unknown) (no (unknown) (unknown) ER Physician: (units ( unknown) date) Miguel Ashraf MD unknown) (unknown) (no (unknown) (unknown) EXTREMITIES: No (units (unknown) date) gross deformities. unknown) (unknown) (no (unknown) (unknown) EYES: Pupils equal (units (unknown) date) round No scleral unknown) icterus. (unknown) (no (unknown) (unknown) Exam (units (unkno wn) date) unknown) (unknown) (no (unknown) (unknown) Exam Narrative: (units (unknown) date) unknown) (unknown) (no (unknown) (unknown) GASTROINTESTINAL: (units (unknown) date) Abdomen soft, unknown) non-tender (unknown) (no (unknown) (unknown) GASTROINTESTINAL: (units (unknown) date) Denies nausea, unknown) vomiting, abdominal pain (unknown) (no (unknown) (unknown) GENERAL: Positive (units (unknown) date) for chills, fatigue, unknown) malaise, fever, sweats. (unknown) (no (unknown) (unknown) GENERAL: in no (units (unknown) date) distress, not toxic unknown) not dyspneic (unknown) (no (unknown) (unknown) : Denies dysuria, (unit s (unknown) date) frequency, hematuria unknown) (unknown) (no (unknown) (unknown) General (units (unkno wn) date) unknown) (unknown) (no (unknown) (unknown) HEAD: (units (unkno wn) date) Normocephalic. unknown) (unknown) (no (unknown) (unknown) HEENT: Denies sinus (unit s (unknown) date) pain, ear pain, sore unknown) throat (unknown) (no (unknown) (unknown) HPI - URI/Sore (units (unknown) date) Throat unknown) (unknown) (no (unknown) (unknown) HPI Narrative: (units (unknown) date) unknown) (unknown) (no (unknown) (unknown) History of Present (units (unknown) date) Illness unknown) (unknown) (no (unknown) (unknown) History of (units (unk nown) date) bilateral breast unknown) implants (1988) (unknown) (no (unknown) (unknown) History of (units (unk nown) date) hypothyroidism unknown) (unknown) (no (unknown) (unknown) History of surgery (units (unknown) date) (04/2014) unknown) (unknown) (no (unknown) (unknown) History of (units (unk nown) date) tonsillectomy and unknown) adenoidectomy (unknown) (no (unknown) (unknown) History of total (units (unknown) date) abdominal unknown) hysterectomy (unknown) (no (unknown) (unknown) Hx of appendectomy (units (unknown) date) (1977) unknown) (unknown) (no (unknown) (unknown) Hx of elbow surgery (unit s (unknown) date) unknown) (unknown) (no (unknown) (unknown) Hyperlipidemia (units (unknown) date) unknown) (unknown) (no (unknown) (unknown) Inhibitor (units (unkn own) date) unknown) (unknown) (no (unknown) (unknown) Inhibitor] (units (unk nown) date) unknown) (unknown) (no (unknown) (unknown) Initial Vital Signs (unit s (unknown) date) unknown) (unknown) (no (unknown) (unknown) Initial Vital (units ( unknown) date) Signs: unknown) (unknown) (no (unknown) (unknown) Lab Data (units (unkno wn) date) unknown) (unknown) (no (unknown) (unknown) Labs: (units (unkno wn) date) unknown) (unknown) (no (unknown) (unknown) Lactate (Lactic (units (unknown) date) Acid) Stat unknown) (unknown) (no (unknown) (unknown) MDM - URI/Sore (units (unknown) date) Throat unknown) (unknown) (no (unknown) (unknown) MUSCULOSKELETAL: (units (unknown) date) denies muscle or unknown) bony pain (unknown) (no (unknown) (unknown) Medical History (units (unknown) date) (Reviewed 03/26/22 @ unknown) 01:47 by Miguel Ashraf MD) (unknown) (no (unknown) (unknown) Methylprednisolone (units (unknown) date) (Methylprednisolone unknown) 125 Mg/2 Ml Vial) 125 mg IV NOW ONE (unknown) (no (unknown) (unknown) Mode of arrival: (units (unknown) date) Ambulatory unknown) (unknown) (no (unknown) (unknown) NECK: Trachea (units ( unknown) date) midline. unknown) (unknown) (no (unknown) (unknown) NEURO: AOx4. (units (u nknown) date) unknown) (unknown) (no (unknown) (unknown) NEUROLOGIC: Denies (units (unknown) date) weakness, numbness unknown) (unknown) (no (unknown) (unknown) Narrative (units (unkn own) date) unknown) (unknown) (no (unknown) (unknown) Narrative: (units (unk nown) date) unknown) (unknown) (no (unknown) (unknown) No Action (units (unkn own) date) unknown) (unknown) (no (unknown) (unknown) No pertinent past (units (unknown) date) surgical history unknown) (unknown) (no (unknown) (unknown) Ordered: (units (unkno wn) date) unknown) (unknown) (no (unknown) (unknown) Orders (units (unkno wn) date) unknown) (unknown) (no (unknown) (unknown) Oxygen Delivery (units (unknown) date) Method 03/26/22 unknown) 00:50 (unknown) (no (unknown) (unknown) Oxygen Delivery (units (unknown) date) Method Room Air Room unknown) Air (unknown) (no (unknown) (unknown) Oxygen Flow Rate 0 (unit s (unknown) date) unknown) (unknown) (no (unknown) (unknown) PSYCH: Not (units (un known) date) anxious, is unknown) cooperative (unknown) (no (unknown) (unknown) Patient History (units (unknown) date) unknown) (unknown) (no (unknown) (unknown) Patient here with (units (unknown) date) . Complaints unknown) fever chills cough and wheezing. Feeling (unknown) (no (unknown) (unknown) Patient: (units (unkno wn) date) Milagro Clifton unknown) E MR (unknown) (no (unknown) (unknown) Prescriptions: (units (unknown) date) unknown) (unknown) (no (unknown) (unknown) Procalcitonin Stat (units (unknown) date) unknown) (unknown) (no (unknown) (unknown) Psoriasis (units (unkn own) date) unknown) (unknown) (no (unknown) (unknown) Pulse Oximetry 95 (units (unknown) date) 03/26/22 00:50 unknown) (unknown) (no (unknown) (unknown) Pulse Oximetry 95 (units (unknown) date) 96 unknown) (unknown) (no (unknown) (unknown) Pulse Rate 94 H (units (unknown) date) 03/26/22 00:50 unknown) (unknown) (no (unknown) (unknown) Pulse Rate 94 H (units (unknown) date) unknown) (unknown) (no (unknown) (unknown) RESPIRATORY: (units (u nknown) date) Positive for unknown) dyspnea, cough (unknown) (no (unknown) (unknown) RESPIRATORY: (units (u nknown) date) Speaking full unknown) sentences. In no distress. There is coarse (unknown) (no (unknown) (unknown) ROS Unobtainable: (units (unknown) date) All systems reviewed unknown) + are unremarkable except as noted in HPI (unknown) (no (unknown) (unknown) RT Consult Eval and (unit s (unknown) date) Treat NOW unknown) (unknown) (no (unknown) (unknown) Referrals: (units (unk nown) date) unknown) (unknown) (no (unknown) (unknown) Related Data (units (u nknown) date) unknown) (unknown) (no (unknown) (unknown) Respiratory Panel (units (unknown) date) (Film Array) Stat unknown) (unknown) (no (unknown) (unknown) Respiratory Rate (units (unknown) date) 23 03/26/22 00:50 unknown) (unknown) (no (unknown) (unknown) Respiratory Rate 23 (unit s (unknown) date) unknown) (unknown) (no (unknown) (unknown) Review of Systems (units (unknown) date) unknown) (unknown) (no (unknown) (unknown) SARS-CoV-2 (PCR) (units (unknown) date) Negative (Negative) unknown) (unknown) (no (unknown) (unknown) SKIN: Warm and dry (unit s (unknown) date) unknown) (unknown) (no (unknown) (unknown) SKIN: Denies rash, (units (unknown) date) skin lesions unknown) (unknown) (no (unknown) (unknown) Signed By: (units (unk nown) date) unknown) (unknown) (no (unknown) (unknown) Sinusitis (units (unkn own) date) unknown) (unknown) (no (unknown) (unknown) Smoking Status: (units (unknown) date) Current every day unknown) smoker (unknown) (no (unknown) (unknown) Smoking Status: (units (unknown) date) Current every day unknown) smoker (unknown) (no (unknown) (unknown) Social History (units (unknown) date) (Reviewed 03/26/22 @ unknown) 01:47 by Miguel Ashraf MD) (unknown) (no (unknown) (unknown) Source: patient (units (unknown) date) unknown) (unknown) (no (unknown) (unknown) Stated Complaint: (units (unknown) date) BAD ASTHMA HARD TO unknown) BREATH (unknown) (no (unknown) (unknown) [id number] (units (unknown) date) Reductase AdvReac unknown) Mild Muscle Pain Verified 10/04/20 06:45 (unknown) (no (unknown) (unknown) Substance Use Type: (unit s (unknown) date) does not use unknown) (unknown) (no (unknown) (unknown) Surgical History (units (unknown) date) (Reviewed 03/26/22 @ unknown) 01:47 by Miguel Ashraf MD) (unknown) (no (unknown) (unknown) Temperature 99.8 F (unit s (unknown) date) H 03/26/22 00:50 unknown) (unknown) (no (unknown) (unknown) Temperature 99.8 F (units (unknown) date) H unknown) (unknown) (no (unknown) (unknown) Time Seen by (units (u nknown) date) Provider: 03/26/22 unknown) 01:36 (unknown) (no (unknown) (unknown) Vital Signs (units (un known) date) unknown) (unknown) (no (unknown) (unknown) Vital signs: (units (u nknown) date) unknown) (unknown) (no (unknown) (unknown) [Ripplus-Bkm-Gvo (units (unknown) date) Reductase unknown) (unknown) (no (unknown) (unknown) alcohol intake (units (unknown) date) frequency: 0-2 unknown) drinks per day (unknown) (no (unknown) (unknown) alcohol intake: (units (unknown) date) current unknown) (unknown) (no (unknown) (unknown) and below (units (unkn own) date) unknown) (unknown) (no (unknown) (unknown) asthma. Is a (units (u nknown) date) smoker. History of unknown) diabetes. Recently had chest x-ray 2 days ago (unknown) (no (unknown) (unknown) at another (units (unk nown) date) hospital. Currently unknown) on prednisone pack. She does smoke. Patient (unknown) (no (unknown) (unknown) better after (units (u nknown) date) breathing treatment unknown) here nebulizer. Patient has history for (unknown) (no (unknown) (unknown) bilateral basilar (units (unknown) date) lung sounds. Has unknown) scant wheezing. (unknown) (no (unknown) (unknown) capsule,delayed (units (unknown) date) release (Nexium unknown) (unknown) (no (unknown) (unknown) cetirizine 5 mg (units (unknown) date) tablet 5 mg PO DAILY unknown) 10/04/20 10/04/20 (unknown) (no (unknown) (unknown) codeine [CODEINE] (units (unknown) date) AdvReac Mild ITCHY unknown) Verified 10/04/20 06:45 (unknown) (no (unknown) (unknown) diazepam 5 mg (units ( unknown) date) tablet (Valium) 5 mg unknown) PO Q12HR PRN muscle spasm #10 09/15/20 (unknown) (no (unknown) (unknown) enoxaparin 40 (units ( unknown) date) mg/0.4 mL 40 mg (0.4 unknown) mL) SUBCUT DAILY #4 mL 10/04/20 (unknown) (no (unknown) (unknown) esomeprazole (units (u nknown) date) magnesium 20 mg 20 unknown) mg PO DAILY 10/04/20 10/04/20 (unknown) (no (unknown) (unknown) fluticasone 500 (units (unknown) date) mcg-salmeterol 50 1 unknown) inh inhalation BID 10/04/20 10/04/20 (unknown) (no (unknown) (unknown) has history of (units (unknown) date) recurrent pneumonia unknown) as well as bronchitis. Patient tested (unknown) (no (unknown) (unknown) household members: (units (unknown) date) spouse unknown) (unknown) (no (unknown) (unknown) inhalation (Advair (units (unknown) date) Diskus) unknown) (unknown) (no (unknown) (unknown) ipratropium 0.5 (units (unknown) date) mg-albuterol 3 mg 3 unknown) ml inhalation Q6-8H PRN 06/06/20 (unknown) (no (unknown) (unknown) levothyroxine 100 (units (unknown) date) mcg tablet 100 mcg unknown) PO DAILY 06/27/19 10/04/20 (unknown) (no (unknown) (unknown) mcg/dose blistr (units (unknown) date) powdr for unknown) (unknown) (no (unknown) (unknown) montelukast 10 mg (units (unknown) date) tablet 10 mg PO unknown) DAILY 06/27/19 10/04/20 (unknown) (no (unknown) (unknown) ondansetron HCl 4 (units (unknown) date) mg tablet 4 mg PO unknown) Q8H PRN nausea and 10/04/20 (unknown) (no (unknown) (unknown) oxycodone 5 mg (units (unknown) date) tablet 5 mg PO Q4H unknown) PRN pain #42 tabs 10/04/20 (unknown) (no (unknown) (unknown) positive for (units (u nknown) date) parainfluenza 3 a unknown) few months ago. She is COVID vaccinated. (unknown) (no (unknown) (unknown) release 24 hr (units ( unknown) date) unknown) (unknown) (no (unknown) (unknown) soln #90 mL (units (un known) date) unknown) (unknown) (no (unknown) (unknown) subcutaneous (units (u nknown) date) syringe (Lovenox) unknown) (unknown) (no (unknown) (unknown) tramadol 50 mg (units (unknown) date) tablet 50 mg PO BID unknown) PRN pain ##0 09/19/17 10/04/20 (unknown) (no (unknown) (unknown) venlafaxine 75 mg (units (unknown) date) capsule,extended 75 unknown) mg PO DAILY 06/27/19 10/04/20 Result panel 4 (unknown) (no date) (unknown) (unknown) > 60 mL/min (unkn own) (unknown) (no date) (unknown) (unknown) 0 /uL (unkn own) (unknown) (no date) (unknown) (unknown) 0 /uL (unkn own) (unknown) (no date) (unknown) (unknown) 0.1 % (unkn own) (unknown) (no date) (unknown) (unknown) 0.3 mg/dL (unkn own) (unknown) (no date) (unknown) (unknown) 0.4 % (unkn own) (unknown) (no date) (unknown) (unknown) 0.80 mg/dL (unkn own) (unknown) (no date) (unknown) (unknown) 1.7 (units unknown) (unknown) (unknown) (no date) (unknown) (unknown) 106 mmol/L (unkn own) (unknown) (no date) (unknown) (unknown) 11.5 X10 3/uL (unkn own) (unknown) (no date) (unknown) (unknown) 12.4 g/dL (unkn own) (unknown) (no date) (unknown) (unknown) 12.9 % (unkn own) (unknown) (no date) (unknown) (unknown) 13.4 % (unkn own) (unknown) (no date) (unknown) (unknown) 139 mmol/L (unkn own) (unknown) (no date) (unknown) (unknown) 15 mg/dL (unkn own) (unknown) (no date) (unknown) (unknown) 1500 /uL (unkn own) (unknown) (no date) (unknown) (unknown) 170 mg/dL (unkn own) (unknown) (no date) (unknown) (unknown) 18.8 (units unknown) (unknown) (unknown) (no date) (unknown) (unknown) 2.4 g/dL (unkn own) (unknown) (no date) (unknown) (unknown) 2.9 mmol/L (unkn own) (unknown) (no date) (unknown) (unknown) 25 IU/L (unkn own) (unknown) (no date) (unknown) (unknown) 25 IU/L (unkn own) (unknown) (no date) (unknown) (unknown) 28 mmol/L (unkn own) (unknown) (no date) (unknown) (unknown) 3.5 mmol/L (unkn own) (unknown) (no date) (unknown) (unknown) 30.4 PG (unkn own) (unknown) (no date) (unknown) (unknown) 301 X10 3/uL (unkn own) (unknown) (no date) (unknown) (unknown) 33.2 % (unkn own) (unknown) (no date) (unknown) (unknown) 37.5 % (unkn own) (unknown) (no date) (unknown) (unknown) 4.1 g/dL (unkn own) (unknown) (no date) (unknown) (unknown) 4.10 X10 6/uL (unkn own) (unknown) (no date) (unknown) (unknown) 6.5 g/dL (unkn own) (unknown) (no date) (unknown) (unknown) 78.5 % (unkn own) (unknown) (no date) (unknown) (unknown) 8.1 % (unkn own) (unknown) (no date) (unknown) (unknown) 9.0 mg/dL (unkn own) (unknown) (no date) (unknown) (unknown) 90 U/L (unkn own) (unknown) (no date) (unknown) (unknown) 900 /uL (unkn own) (unknown) (no date) (unknown) (unknown) 9000 /uL (unkn own) (unknown) (no date) (unknown) (unknown) 91.6 fL (unkn own) Result panel 5 (unknown) (no date) (unknown) (unknown) > 60 mL/min (unkn own) (unknown) (no date) (unknown) (unknown) 0.06 ng/mL (unkn own) (unknown) (no date) (unknown) (unknown) 0.3 mg/dL (unkn own) (unknown) (no date) (unknown) (unknown) 0.80 mg/dL (unkn own) (unknown) (no date) (unknown) (unknown) 1.7 (units unknown) (unknown) (unknown) (no date) (unknown) (unknown) 106 mmol/L (unkn own) (unknown) (no date) (unknown) (unknown) 139 mmol/L (unkn own) (unknown) (no date) (unknown) (unknown) 15 mg/dL (unkn own) (unknown) (no date) (unknown) (unknown) 170 mg/dL (unkn own) (unknown) (no date) (unknown) (unknown) 18.8 (units unknown) (unknown) (unknown) (no date) (unknown) (unknown) 2.4 g/dL (unkn own) (unknown) (no date) (unknown) (unknown) 25 IU/L (unkn own) (unknown) (no date) (unknown) (unknown) 25 IU/L (unkn own) (unknown) (no date) (unknown) (unknown) 28 mmol/L (unkn own) (unknown) (no date) (unknown) (unknown) 3.5 mmol/L (unkn own) (unknown) (no date) (unknown) (unknown) 4.1 g/dL (unkn own) (unknown) (no date) (unknown) (unknown) 6.5 g/dL (unkn own) (unknown) (no date) (unknown) (unknown) 9.0 mg/dL (unkn own) (unknown) (no date) (unknown) (unknown) 90 U/L (unkn own) Result panel 6 (unknown) (no date) (unknown) (unknown) Detected (units (unkn own) unknown) (unknown) (no date) (unknown) (unknown) Not Detected (units ( unknown) unknown) (unknown) (no date) (unknown) (unknown) Not Detected (units ( unknown) unknown) Result panel 7 (unknown) (no (unknown) (unknown) (no value) (units (unk nown) date) unknown) (unknown) (no (unknown) (unknown) Radiologist's (units ( unknown) date) Impression: unknown) (unknown) (no (unknown) (unknown) Date of Service: (units (unknown) date) 03/26/22 unknown) (unknown) (no (unknown) (unknown) (no value) (units (unk nown) date) unknown) (unknown) (no (unknown) (unknown) 03/26/22 02:10 (units (unknown) date) unknown) (unknown) (no (unknown) (unknown) 1 inh INHALATION (units (unknown) date) BID unknown) (unknown) (no (unknown) (unknown) 10 mg PO DAILY (units (unknown) date) unknown) (unknown) (no (unknown) (unknown) 100 mcg PO DAILY (units (unknown) date) unknown) (unknown) (no (unknown) (unknown) [address] [place] [address] (units (unknown) date) unknown) (unknown) (no (unknown) (unknown) 20 mg PO DAILY (units (unknown) date) unknown) (unknown) (no (unknown) (unknown) 3 ml INHALATION (units (unknown) date) Q6-8H PRN (Reason: unknown) shortness of breath or wheezing) Qty: 90 (unknown) (no (unknown) (unknown) 4 mg PO Q8H PRN (units (unknown) date) (Reason: nausea and unknown) vomiting) Qty: 7 1RF (unknown) (no (unknown) (unknown) 40 mg SUBCUT DAILY (units (unknown) date) Qty: 4 0RF unknown) (unknown) (no (unknown) (unknown) 5 mg PO DAILY (units ( unknown) date) unknown) (unknown) (no (unknown) (unknown) 5 mg PO Q12HR PRN (units (unknown) date) (Reason: muscle unknown) spasm) Qty: 10 0RF (unknown) (no (unknown) (unknown) 5 mg PO Q4H PRN (units (unknown) date) (Reason: pain) Qty: unknown) 42 0RF (unknown) (no (unknown) (unknown) 50 mg PO BID PRN (units (unknown) date) (Reason: pain) Qty: unknown) 0 (unknown) (no (unknown) (unknown) 75 mg PO DAILY (units (unknown) date) unknown) (unknown) (no (unknown) (unknown) Allergies (units (unkn own) date) unknown) (unknown) (no (unknown) (unknown) [place] [id number] (unit s (unknown) date) unknown) (unknown) (no (unknown) (unknown) Documented By: DKB (units (unknown) date) unknown) (unknown) (no (unknown) (unknown) Documented By: TV (units (unknown) date) unknown) (unknown) (no (unknown) (unknown) ED Orders (units (unkn own) date) unknown) (unknown) (no (unknown) (unknown) Emergency Report (units (unknown) date) unknown) (unknown) (no (unknown) (unknown) Home Medications (units (unknown) date) unknown) (unknown) (no (unknown) (unknown) [facility] (units (unknown) date) unknown) (unknown) (no (unknown) (unknown) [facility] (units (unknown) date) [address] unknown) [place] [id number] (unknown) (no (unknown) (unknown) Lab Results (units (un known) date) unknown) (unknown) (no (unknown) (unknown) Last Admin: (units (un known) date) 03/26/22 01:13 unknown) Dose: 3 ml (unknown) (no (unknown) (unknown) Last Admin: (units (un known) date) 03/26/22 01:14 unknown) Dose: 2.5 mg (unknown) (no (unknown) (unknown) Last Admin: (units (un known) date) 03/26/22 01:54 unknown) Dose: 125 mg (unknown) (no (unknown) (unknown) Previous Rx's (units ( unknown) date) unknown) (unknown) (no (unknown) (unknown) Rx Instructions: (units (unknown) date) unknown) (unknown) (no (unknown) (unknown) Signed (units (unkno wn) date) unknown) (unknown) (no (unknown) (unknown) Stop: 03/26/22 (units (unknown) date) 01:05 unknown) (unknown) (no (unknown) (unknown) Stop: 03/26/22 (units (unknown) date) 01:44 unknown) (unknown) (no (unknown) (unknown) Vital Signs - 8 hr (units (unknown) date) unknown) (unknown) (no (unknown) (unknown) XRay Report (units (un known) date) unknown) (unknown) (no (unknown) (unknown) exempt postop (units ( unknown) date) unknown) (unknown) (no (unknown) (unknown) (no value) (units (unk nown) date) unknown) (unknown) (no (unknown) (unknown) 00:50 02:10 02:10 (units (unknown) date) unknown) (unknown) (no (unknown) (unknown) 02:10 (units (unkno wn) date) unknown) (unknown) (no (unknown) (unknown) 03/26/22 03/26/22 (units (unknown) date) 03/26/22 Range/Units unknown) (unknown) (no (unknown) (unknown) 03/26/22 (units (unkno wn) date) Range/Units unknown) (unknown) (no (unknown) (unknown) cetirizine 5 mg (units (unknown) date) Tablet unknown) (unknown) (no (unknown) (unknown) diazepam [Valium] 5 (unit s (unknown) date) mg tablet unknown) (unknown) (no (unknown) (unknown) enoxaparin (units (unk nown) date) [Lovenox] 40 mg/0.4 unknown) mL syringe (unknown) (no (unknown) (unknown) esomeprazole (units (u nknown) date) magnesium [Nexium unknown) 24HR] 20 mg Capsule,Delayed Release(Dr/Ec) (unknown) (no (unknown) (unknown) fluticasone (units (un known) date) propion-salmeterol unknown) [Advair Diskus] 500-50 mcg/dose Blister With (unknown) (no (unknown) (unknown) ipratropium-albuter (unit s (unknown) date) ol 0.5 mg-3 mg(2.5 unknown) mg base)/3 mL solution for nebulization (unknown) (no (unknown) (unknown) levothyroxine 100 (units (unknown) date) mcg tablet unknown) (unknown) (no (unknown) (unknown) montelukast 10 mg (units (unknown) date) tablet unknown) (unknown) (no (unknown) (unknown) ondansetron HCl (units (unknown) date) [Zofran] 4 mg tablet unknown) (unknown) (no (unknown) (unknown) oxycodone 5 mg (units (unknown) date) tablet unknown) (unknown) (no (unknown) (unknown) tramadol 50 MG (units (unknown) date) tablet unknown) (unknown) (no (unknown) (unknown) venlafaxine 75 mg (units (unknown) date) capsule,extended unknown) release 24hr (unknown) (no (unknown) (unknown) 03/26/22 (units (unkno wn) date) unknown) (unknown) (no (unknown) (unknown) Medication (units (unk nown) date) Instructions unknown) Recorded (unknown) (no (unknown) (unknown) Medication (units (unk nown) date) Instructions unknown) Recorded Confirmed (unknown) (no (unknown) (unknown) tabs (units (unkno wn) date) unknown) (unknown) (no (unknown) (unknown) #: [id number] (units ( unknown) date) unknown) (unknown) (no (unknown) (unknown) (2.5 mg base)/3 mL (units (unknown) date) nebulization unknown) shortness of breath or wheezing (unknown) (no (unknown) (unknown) (Zofran) vomiting (units (unknown) date) #7 tabs unknown) (unknown) (no (unknown) (unknown) 00:50 03/26/22 (units (unknown) date) unknown) (unknown) (no (unknown) (unknown) 01:15 (units (unkno wn) date) unknown) (unknown) (no (unknown) (unknown) 03/26/22 00:50 (units (unknown) date) unknown) (unknown) (no (unknown) (unknown) 03/26/22 01:02 (units (unknown) date) unknown) (unknown) (no (unknown) (unknown) 03/26/22 01:33 (units (unknown) date) unknown) (unknown) (no (unknown) (unknown) 03/26/22 02:10 (units (unknown) date) unknown) (unknown) (no (unknown) (unknown) 0RF (units (unkno wn) date) unknown) (unknown) (no (unknown) (unknown) 1. Findings (units (un known) date) consistent with COPD unknown) redemonstrated without acute consolidation.? (unknown) (no (unknown) (unknown) 24HR) (units (unkno wn) date) unknown) (unknown) (no (unknown) (unknown) ? (units (unkno wn) date) unknown) (unknown) (no (unknown) (unknown) ALT 25 (<35) (units (unknown) date) IU/L unknown) (unknown) (no (unknown) (unknown) ALT (<35) IU/L (units (unknown) date) unknown) (unknown) (no (unknown) (unknown) AST 25 (14-36) (units (unknown) date) IU/L unknown) (unknown) (no (unknown) (unknown) AST (14-36) IU/L (unit s (unknown) date) unknown) (unknown) (no (unknown) (unknown) Accession Number: (units (unknown) date) [id number] ?? unknown) (unknown) (no (unknown) (unknown) Acct:[id number] (units (unknown) date) unknown) (unknown) (no (unknown) (unknown) Age/Sex: 66 / F (units (unknown) date) unknown) (unknown) (no (unknown) (unknown) Age/Sex: 66 / F (units (unknown) date) unknown) (unknown) (no (unknown) (unknown) Albumin 4.1 (units (unknown) date) (3.5-5.0) g/dL unknown) (unknown) (no (unknown) (unknown) Albumin (3.5-5.0) (unit s (unknown) date) g/dL unknown) (unknown) (no (unknown) (unknown) Albumin/Globulin (units (unknown) date) Ratio 1.7 unknown) (1.0-2.8) (unknown) (no (unknown) (unknown) Albumin/Globulin (units (unknown) date) Ratio (1.0-2.8) unknown) (unknown) (no (unknown) (unknown) Albuterol (units (unkn own) date) (Albuterol 2.5 Mg/3 unknown) Ml Neb (Adult)) 2.5 mg INH NOW ONE (unknown) (no (unknown) (unknown) Albuterol/Ipratropi (unit s (unknown) date) um unknown) (Albuterol/Ipratropi um 3 Ml Ampul) 3 ml INH NOW ONE (unknown) (no (unknown) (unknown) Alkaline (units (unkno wn) date) Phosphatase 90 unknown) (38-126) U/L (unknown) (no (unknown) (unknown) Alkaline (units (unkno wn) date) Phosphatase unknown) (38-126) U/L (unknown) (no (unknown) (unknown) Allergy/AdvReac (units (unknown) date) Type Severity unknown) Reaction Status Date / Time (unknown) (no (unknown) (unknown) Approved by: Rory (unit s (unknown) date) Juanis Dillon M.D. on unknown) 03/26/2022 at 2:47 ? (unknown) (no (unknown) (unknown) Asthma (units (unkno wn) date) unknown) (unknown) (no (unknown) (unknown) BACK: No flank (units (unknown) date) tenderness. unknown) (unknown) (no (unknown) (unknown) BUN 15 (7-17) (units (unknown) date) mg/dL unknown) (unknown) (no (unknown) (unknown) BUN (7-17) mg/dL (unit s (unknown) date) unknown) (unknown) (no (unknown) (unknown) BUN/Creatinine (units (unknown) date) Ratio 18.8 unknown) (6-22) (unknown) (no (unknown) (unknown) BUN/Creatinine (units (unknown) date) Ratio (6-22) unknown) (unknown) (no (unknown) (unknown) Baso # (Auto) (units ( unknown) date) (0-100) /uL unknown) (unknown) (no (unknown) (unknown) Baso # (Auto) 0 (units (unknown) date) (0-100) /uL unknown) (unknown) (no (unknown) (unknown) Baso % (Auto) (units ( unknown) date) (0-2) % unknown) (unknown) (no (unknown) (unknown) Baso % (Auto) 0.4 (unit s (unknown) date) (0-2) % unknown) (unknown) (no (unknown) (unknown) Blood Pressure (units (unknown) date) 180/80 H 03/26/22 unknown) 00:50 (unknown) (no (unknown) (unknown) Blood Pressure (units (unknown) date) 180/80 H unknown) (unknown) (no (unknown) (unknown) Bones and chest (units (unknown) date) wall:? No suspicious unknown) bony abnormalities.? Soft tissues appear (unknown) (no (unknown) (unknown) CARDIOVASCULAR: (units (unknown) date) Denies chest pain, unknown) palpitations (unknown) (no (unknown) (unknown) CARDIOVASCULAR: (units (unknown) date) Regular rate and unknown) rhythm without murmurs (unknown) (no (unknown) (unknown) CBC Auto Diff (units ( unknown) date) [Complete Blood unknown) Count AUTO DIFF] Stat (unknown) (no (unknown) (unknown) CHEST 2V, (units (unkn own) date) 06/06/2020, 14:48. unknown) (unknown) (no (unknown) (unknown) CMP [Comprehensive (units (unknown) date) Metabolic Panel] unknown) Stat (unknown) (no (unknown) (unknown) [facility], [facility], XR unknown) CHEST 2V, 12/16/2018, 14:34.? [facility] ([facility]) (no (unknown) (unknown) COVID19 -[place] (units (unknown) date) RAPID/Pre-Proc Stat unknown) (unknown) (no (unknown) (unknown) Calcium 9.0 (units (unknown) date) (8.4-10.2) mg/dL unknown) (unknown) (no (unknown) (unknown) Calcium (units (unkno wn) date) (8.4-10.2) mg/dL unknown) (unknown) (no (unknown) (unknown) Carbon Dioxide (units (unknown) date) 28 (22-32) mmol/L unknown) (unknown) (no (unknown) (unknown) Carbon Dioxide (units (unknown) date) (22-32) mmol/L unknown) (unknown) (no (unknown) (unknown) Chest [XR chest 2V] (unit s (unknown) date) Stat unknown) (unknown) (no (unknown) (unknown) Chest x-ray: (units (u nknown) date) unknown) (unknown) (no (unknown) (unknown) Chief Complaint: (units (unknown) date) Shortness of unknown) Breath/Dyspnea (unknown) (no (unknown) (unknown) Chloride 106 (units (unknown) date) (98-107) mmol/L unknown) (unknown) (no (unknown) (unknown) Chloride (98-107) (unit s (unknown) date) mmol/L unknown) (unknown) (no (unknown) (unknown) Course (units (unkno wn) date) unknown) (unknown) (no (unknown) (unknown) Creatinine 0.80 (units (unknown) date) (0.52-1.04) mg/dL unknown) (unknown) (no (unknown) (unknown) Creatinine (units (unk nown) date) (0.52-1.04) mg/dL unknown) (unknown) (no (unknown) (unknown) DDD (degenerative (units (unknown) date) disc disease) unknown) (unknown) (no (unknown) (unknown) DJD (degenerative (units (unknown) date) joint disease) unknown) (unknown) (no (unknown) (unknown) : 1955 (units (unknown) date) Acct:[id number] unknown) (unknown) (no (unknown) (unknown) : 1955 (units (unknown) date) unknown) (unknown) (no (unknown) (unknown) Date of Service: (units (unknown) date) 03/26/22 unknown) (unknown) (no (unknown) (unknown) Departure (units (unkn own) date) unknown) (unknown) (no (unknown) (unknown) Depression (units (unk nown) date) unknown) (unknown) (no (unknown) (unknown) Jen Ma PA-C (unit s (unknown) date) [Primary Care unknown) Provider] - (unknown) (no (unknown) (unknown) Device (units (unkno wn) date) unknown) (unknown) (no (unknown) (unknown) Dictated by: Rory (unit s (unknown) date) Juanis Dillon M.D. on unknown) 03/26/2022 at 2:46 ? ? (unknown) (no (unknown) (unknown) Differential (units (u nknown) date) Diagnosis unknown) (unknown) (no (unknown) (unknown) Differential (units (u nknown) date) diagnosis: Likely unknown) upper respiratory infection, viral infection, (unknown) (no (unknown) (unknown) Discharge Plan (units (unknown) date) unknown) (unknown) (no (unknown) (unknown) Discontinued (units (u nknown) date) Medications unknown) (unknown) (no (unknown) (unknown) ENT: Mucous (units (u nknown) date) membranes moist. unknown) (unknown) (no (unknown) (unknown) ER Physician: (units ( unknown) date) Miguel Ashraf MD unknown) (unknown) (no (unknown) (unknown) EXTREMITIES: No (units (unknown) date) gross deformities. unknown) (unknown) (no (unknown) (unknown) EYES: Pupils equal (units (unknown) date) round No scleral unknown) icterus. (unknown) (no (unknown) (unknown) Eos # (Auto) (units (u nknown) date) (0-450) /uL unknown) (unknown) (no (unknown) (unknown) Eos # (Auto) 0 (units (unknown) date) (0-450) /uL unknown) (unknown) (no (unknown) (unknown) Eos % (Auto) (units (u nknown) date) (2-4) % unknown) (unknown) (no (unknown) (unknown) Eos % (Auto) 0.1 (units (unknown) date) L (2-4) % unknown) (unknown) (no (unknown) (unknown) Estimated GFR > (units (unknown) date) 60 (>60) mL/min unknown) (unknown) (no (unknown) (unknown) Estimated GFR (units ( unknown) date) (>60) mL/min unknown) (unknown) (no (unknown) (unknown) Exam (units (unkno wn) date) unknown) (unknown) (no (unknown) (unknown) Exam Narrative: (units (unknown) date) unknown) (unknown) (no (unknown) (unknown) FINDINGS:? (units (unk nown) date) unknown) (unknown) (no (unknown) (unknown) GASTROINTESTINAL: (units (unknown) date) Abdomen soft, unknown) non-tender (unknown) (no (unknown) (unknown) GASTROINTESTINAL: (units (unknown) date) Denies nausea, unknown) vomiting, abdominal pain (unknown) (no (unknown) (unknown) GENERAL: Positive (units (unknown) date) for chills, fatigue, unknown) malaise, fever, sweats. (unknown) (no (unknown) (unknown) GENERAL: in no (units (unknown) date) distress, not toxic unknown) not dyspneic (unknown) (no (unknown) (unknown) : Denies dysuria, (unit s (unknown) date) frequency, hematuria unknown) (unknown) (no (unknown) (unknown) General (units (unkno wn) date) unknown) (unknown) (no (unknown) (unknown) GenericComposite[Pl (unit s (unknown) date) t Count (150-400) unknown) X10^3/uL ] (unknown) (no (unknown) (unknown) GenericComposite[Pl (unit s (unknown) date) t Count 301 unknown) (150-400) X10^3/uL ] (unknown) (no (unknown) (unknown) GenericComposite[RB (unit s (unknown) date) C (4.0-5.2) unknown) X10^6/uL ] (unknown) (no (unknown) (unknown) GenericComposite[RB (unit s (unknown) date) C 4.10 (4.0-5.2) unknown) X10^6/uL ] (unknown) (no (unknown) (unknown) GenericComposite[WB (unit s (unknown) date) C (4.5-11.0) unknown) X10^3/uL ] (unknown) (no (unknown) (unknown) GenericComposite[WB (unit s (unknown) date) C 11.5 H unknown) (4.5-11.0) X10^3/uL ] (unknown) (no (unknown) (unknown) Globulin 2.4 (units (unknown) date) (1.7-4.1) g/dL unknown) (unknown) (no (unknown) (unknown) Globulin (units (unkno wn) date) (1.7-4.1) g/dL unknown) (unknown) (no (unknown) (unknown) Glucose 170 H (units (unknown) date) (80-110) mg/dL unknown) (unknown) (no (unknown) (unknown) Glucose (80-110) (units (unknown) date) mg/dL unknown) (unknown) (no (unknown) (unknown) HEAD: (units (unkno wn) date) Normocephalic. unknown) (unknown) (no (unknown) (unknown) HEENT: Denies sinus (unit s (unknown) date) pain, ear pain, sore unknown) throat (unknown) (no (unknown) (unknown) HPI - URI/Sore (units (unknown) date) Throat unknown) (unknown) (no (unknown) (unknown) HPI Narrative: (units (unknown) date) unknown) (unknown) (no (unknown) (unknown) Hct (36-46) % (units (unknown) date) unknown) (unknown) (no (unknown) (unknown) Hct 37.5 (units (unk nown) date) (36-46) % unknown) (unknown) (no (unknown) (unknown) Hgb (12.0-16.0) (units (unknown) date) g/dL unknown) (unknown) (no (unknown) (unknown) Hgb 12.4 (units (unk nown) date) (12.0-16.0) g/dL unknown) (unknown) (no (unknown) (unknown) History of Present (units (unknown) date) Illness unknown) (unknown) (no (unknown) (unknown) History of (units (unk nown) date) bilateral breast unknown) implants (1988) (unknown) (no (unknown) (unknown) History of (units (unk nown) date) hypothyroidism unknown) (unknown) (no (unknown) (unknown) History of surgery (units (unknown) date) (04/2014) unknown) (unknown) (no (unknown) (unknown) History of (units (unk nown) date) tonsillectomy and unknown) adenoidectomy (unknown) (no (unknown) (unknown) History of total (units (unknown) date) abdominal unknown) hysterectomy (unknown) (no (unknown) (unknown) Hospital, CR, XR (units (unknown) date) unknown) (unknown) (no (unknown) (unknown) Hx of appendectomy (units (unknown) date) (1977) unknown) (unknown) (no (unknown) (unknown) Hx of elbow surgery (unit s (unknown) date) unknown) (unknown) (no (unknown) (unknown) Hyperlipidemia (units (unknown) date) unknown) (unknown) (no (unknown) (unknown) IMPRESSION:? (units (u nknown) date) unknown) (unknown) (no (unknown) (unknown) INDICATIONS:? short (unit s (unknown) date) of breath unknown) (unknown) (no (unknown) (unknown) Imaging Data (units (u nknown) date) unknown) (unknown) (no (unknown) (unknown) Inhibitor (units (unkn own) date) unknown) (unknown) (no (unknown) (unknown) Inhibitor] (units (unk nown) date) unknown) (unknown) (no (unknown) (unknown) Initial Vital Signs (unit s (unknown) date) unknown) (unknown) (no (unknown) (unknown) Initial Vital (units ( unknown) date) Signs: unknown) (unknown) (no (unknown) (unknown) Lab Data (units (unkno wn) date) unknown) (unknown) (no (unknown) (unknown) Labs: (units (unkno wn) date) unknown) (unknown) (no (unknown) (unknown) Lactate (units (unkno wn) date) (0.7-2.1) mmol/L unknown) (unknown) (no (unknown) (unknown) Lactate 2.9 H (units (unknown) date) (0.7-2.1) mmol/L unknown) (unknown) (no (unknown) (unknown) Lactate (Lactic (units (unknown) date) Acid) Stat unknown) (unknown) (no (unknown) (unknown) Loc: ED (units (unkno wn) date) unknown) (unknown) (no (unknown) (unknown) Lungs and pleura:? (units (unknown) date) There is unknown) hyperinflation of the lungs with flattening of the (unknown) (no (unknown) (unknown) Lymph # (Auto) (units (unknown) date) (1524-8683) /uL unknown) (unknown) (no (unknown) (unknown) Lymph # (Auto) (units (unknown) date) 1500 (2136-3196) unknown) /uL (unknown) (no (unknown) (unknown) Lymph % (Auto) (units (unknown) date) (25-40) % unknown) (unknown) (no (unknown) (unknown) Lymph % (Auto) (units (unknown) date) 12.9 L (25-40) % unknown) (unknown) (no (unknown) (unknown) MCH (26-34) PG (units (unknown) date) unknown) (unknown) (no (unknown) (unknown) MCH 30.4 (units (unk nown) date) (26-34) PG unknown) (unknown) (no (unknown) (unknown) MCHC (30-36) % (units (unknown) date) unknown) (unknown) (no (unknown) (unknown) MCHC 33.2 (units (un known) date) (30-36) % unknown) (unknown) (no (unknown) (unknown) MCV (80-100) fL (units (unknown) date) unknown) (unknown) (no (unknown) (unknown) MCV 91.6 (units (unk nown) date) (80-100) fL unknown) (unknown) (no (unknown) (unknown) MDM - URI/Sore (units (unknown) date) Throat unknown) (unknown) (no (unknown) (unknown) MR#: [id number] (units (unknown) date) unknown) (unknown) (no (unknown) (unknown) MUSCULOSKELETAL: (units (unknown) date) denies muscle or unknown) bony pain (unknown) (no (unknown) (unknown) Mediastinum:? (units ( unknown) date) Mediastinal contours unknown) are normal.? Heart size is normal.? (unknown) (no (unknown) (unknown) Medical History (units (unknown) date) (Reviewed 03/26/22 @ unknown) 01:47 by Miguel Ashraf MD) (unknown) (no (unknown) (unknown) Methylprednisolone (units (unknown) date) (Methylprednisolone unknown) 125 Mg/2 Ml Vial) 125 mg IV NOW ONE (unknown) (no (unknown) (unknown) Mode of arrival: (units (unknown) date) Ambulatory unknown) (unknown) (no (unknown) (unknown) [place] # (Auto) (units ( unknown) date) (0-900) /uL unknown) (unknown) (no (unknown) (unknown) [place] # (Auto) 900 (unit s (unknown) date) (0-900) /uL unknown) (unknown) (no (unknown) (unknown) [place] % (Auto) (units ( unknown) date) (3-14) % unknown) (unknown) (no (unknown) (unknown) [place] % (Auto) 8.1 (unit s (unknown) date) (3-14) % unknown) (unknown) (no (unknown) (unknown) NECK: Trachea (units ( unknown) date) midline. unknown) (unknown) (no (unknown) (unknown) NEURO: AOx4. (units (u nknown) date) unknown) (unknown) (no (unknown) (unknown) NEUROLOGIC: Denies (units (unknown) date) weakness, numbness unknown) (unknown) (no (unknown) (unknown) Narrative (units (unkn own) date) unknown) (unknown) (no (unknown) (unknown) Narrative: (units (unk nown) date) unknown) (unknown) (no (unknown) (unknown) Neut # (Auto) (units ( unknown) date) (0067-3845) /uL unknown) (unknown) (no (unknown) (unknown) Neut # (Auto) (units ( unknown) date) 9000 H (6568-9068) unknown) /uL (unknown) (no (unknown) (unknown) Neut % (Auto) (units ( unknown) date) (50-75) % unknown) (unknown) (no (unknown) (unknown) Neut % (Auto) (units ( unknown) date) 78.5 H (50-75) % unknown) (unknown) (no (unknown) (unknown) No Action (units (unkn own) date) unknown) (unknown) (no (unknown) (unknown) No pertinent past (units (unknown) date) surgical history unknown) (unknown) (no (unknown) (unknown) Ordered: (units (unkno wn) date) unknown) (unknown) (no (unknown) (unknown) Ordering Provider: (units (unknown) date) Miguel Ashraf MD unknown) (unknown) (no (unknown) (unknown) Orders (units (unkno wn) date) unknown) (unknown) (no (unknown) (unknown) Oxygen Delivery (units (unknown) date) Method 03/26/22 unknown) 00:50 (unknown) (no (unknown) (unknown) Oxygen Delivery (units (unknown) date) Method Room Air Room unknown) Air (unknown) (no (unknown) (unknown) Oxygen Flow Rate 0 (unit s (unknown) date) unknown) (unknown) (no (unknown) (unknown) PROCEDURE:? XR (units (unknown) date) CHEST 2V unknown) (unknown) (no (unknown) (unknown) PSYCH: Not (units (un known) date) anxious, is unknown) cooperative (unknown) (no (unknown) (unknown) Patient History (units (unknown) date) unknown) (unknown) (no (unknown) (unknown) Patient here with (units (unknown) date) . Complaints unknown) fever chills cough and wheezing. Feeling (unknown) (no (unknown) (unknown) Patient: (units (unkno wn) date) Milagro Cliftno unknown) E MR (unknown) (no (unknown) (unknown) Patient: (units (unkno wn) date) Clifton,Milagro unknown) E (unknown) (no (unknown) (unknown) Potassium 3.5 (units (unknown) date) (3.4-5.1) mmol/L unknown) (unknown) (no (unknown) (unknown) Potassium (units (unkn own) date) (3.4-5.1) mmol/L unknown) (unknown) (no (unknown) (unknown) Prescriptions: (units (unknown) date) unknown) (unknown) (no (unknown) (unknown) Procalcitonin (units ( unknown) date) 0.06 (<0.5) ng/mL unknown) (unknown) (no (unknown) (unknown) Procalcitonin (units ( unknown) date) (<0.5) ng/mL unknown) (unknown) (no (unknown) (unknown) Procalcitonin Stat (units (unknown) date) unknown) (unknown) (no (unknown) (unknown) Procedure: XR chest (unit s (unknown) date) 2V unknown) (unknown) (no (unknown) (unknown) Psoriasis (units (unkn own) date) unknown) (unknown) (no (unknown) (unknown) Pulse Oximetry 95 (units (unknown) date) 03/26/22 00:50 unknown) (unknown) (no (unknown) (unknown) Pulse Oximetry 95 (units (unknown) date) 96 unknown) (unknown) (no (unknown) (unknown) Pulse Rate 94 H (units (unknown) date) 03/26/22 00:50 unknown) (unknown) (no (unknown) (unknown) Pulse Rate 94 H (units (unknown) date) unknown) (unknown) (no (unknown) (unknown) RDW (11.6-14.8) (units (unknown) date) % unknown) (unknown) (no (unknown) (unknown) RDW 13.4 (units (unk nown) date) (11.6-14.8) % unknown) (unknown) (no (unknown) (unknown) RESPIRATORY: (units (u nknown) date) Positive for unknown) dyspnea, cough (unknown) (no (unknown) (unknown) RESPIRATORY: (units (u nknown) date) Speaking full unknown) sentences. In no distress. There is coarse (unknown) (no (unknown) (unknown) ROS Unobtainable: (units (unknown) date) All systems reviewed unknown) + are unremarkable except as noted in HPI (unknown) (no (unknown) (unknown) RT Consult Eval and (unit s (unknown) date) Treat NOW unknown) (unknown) (no (unknown) (unknown) Referrals: (units (unk nown) date) unknown) (unknown) (no (unknown) (unknown) Related Data (units (u nknown) date) unknown) (unknown) (no (unknown) (unknown) Respiratory Panel (units (unknown) date) (Film Array) Stat unknown) (unknown) (no (unknown) (unknown) Respiratory Rate (units (unknown) date) 23 03/26/22 00:50 unknown) (unknown) (no (unknown) (unknown) Respiratory Rate 23 (unit s (unknown) date) unknown) (unknown) (no (unknown) (unknown) Result diagrams: (units (unknown) date) unknown) (unknown) (no (unknown) (unknown) Review of Systems (units (unknown) date) unknown) (unknown) (no (unknown) (unknown) SARS-CoV-2 (PCR) (units (unknown) date) (Negative) unknown) (unknown) (no (unknown) (unknown) SARS-CoV-2 (PCR) (units (unknown) date) Negative unknown) (Negative) (unknown) (no (unknown) (unknown) SKIN: Warm and dry (unit s (unknown) date) unknown) (unknown) (no (unknown) (unknown) SKIN: Denies rash, (units (unknown) date) skin lesions unknown) (unknown) (no (unknown) (unknown) Signed By: (units (unk nown) date) unknown) (unknown) (no (unknown) (unknown) Sinusitis (units (unkn own) date) unknown) (unknown) (no (unknown) (unknown) Smoking Status: (units (unknown) date) Current every day unknown) smoker (unknown) (no (unknown) (unknown) Smoking Status: (units (unknown) date) Current every day unknown) smoker (unknown) (no (unknown) (unknown) Social History (units (unknown) date) (Reviewed 03/26/22 @ unknown) 01:47 by Miguel Ashraf MD) (unknown) (no (unknown) (unknown) Sodium 139 (units ( unknown) date) (137-145) mmol/L unknown) (unknown) (no (unknown) (unknown) Sodium (137-145) (units (unknown) date) mmol/L unknown) (unknown) (no (unknown) (unknown) Source: patient (units (unknown) date) unknown) (unknown) (no (unknown) (unknown) Stated Complaint: (units (unknown) date) BAD ASTHMA HARD TO unknown) BREATH (unknown) (no (unknown) (unknown) [id number]-[id number] (units (unknown) date) Reductase AdvReac unknown) Mild Muscle Pain Verified 10/04/20 06:45 (unknown) (no (unknown) (unknown) Substance Use Type: (unit s (unknown) date) does not use unknown) (unknown) (no (unknown) (unknown) Surgical History (units (unknown) date) (Reviewed 03/26/22 @ unknown) 01:47 by Miguel Ashraf MD) (unknown) (no (unknown) (unknown) Surgical changes (units (unknown) date) and devices:? There unknown) are peripherally calcified breast implants (unknown) (no (unknown) (unknown) TECHNIQUE:? 2 views (unit s (unknown) date) of the chest were unknown) acquired.? (unknown) (no (unknown) (unknown) Temperature 99.8 F (unit s (unknown) date) H 03/26/22 00:50 unknown) (unknown) (no (unknown) (unknown) Temperature 99.8 F (units (unknown) date) H unknown) (unknown) (no (unknown) (unknown) Time Seen by (units (u nknown) date) Provider: 03/26/22 unknown) 01:36 (unknown) (no (unknown) (unknown) Total Bilirubin (units (unknown) date) 0.3 (0.2-1.3) unknown) mg/dL (unknown) (no (unknown) (unknown) Total Bilirubin (units (unknown) date) (0.2-1.3) mg/dL unknown) (unknown) (no (unknown) (unknown) Total Protein (units ( unknown) date) 6.5 (6.3-8.2) g/dL unknown) (unknown) (no (unknown) (unknown) Total Protein (units ( unknown) date) (6.3-8.2) g/dL unknown) (unknown) (no (unknown) (unknown) Vital Signs (units (un known) date) unknown) (unknown) (no (unknown) (unknown) Vital signs: (units (u nknown) date) unknown) (unknown) (no (unknown) (unknown) [Embedded Image Not (unit s (unknown) date) Available] unknown) (unknown) (no (unknown) (unknown) [[id number]-Qry-Jas (units (unknown) date) Reductase unknown) (unknown) (no (unknown) (unknown) alcohol intake (units (unknown) date) frequency: 0-2 unknown) drinks per day (unknown) (no (unknown) (unknown) alcohol intake: (units (unknown) date) current unknown) (unknown) (no (unknown) (unknown) and below (units (unkn own) date) unknown) (unknown) (no (unknown) (unknown) asthma. Is a (units (u nkn) date) smoker. History of unknown) diabetes. Recently had chest x-ray 2 days ago (unknown) (no (unknown) (unknown) at another (units (unk nown) date) hospital. Currently unknown) on prednisone pack. She does smoke. Patient (unknown) (no (unknown) (unknown) better after (units (u nkn) date) breathing treatment unknown) here nebulizer. Patient has history for (unknown) (no (unknown) (unknown) bilateral basilar (units (unknown) date) lung sounds. Has unknown) scant wheezing. (unknown) (no (unknown) (unknown) bronchitis, (units (un known) date) influenza and other unknown) (Pneumonia/asthma exacerbation) (unknown) (no (unknown) (unknown) capsule,delayed (units (unknown) date) release (Nexium unknown) (unknown) (no (unknown) (unknown) cetirizine 5 mg (units (unknown) date) tablet 5 mg PO DAILY unknown) 10/04/20 10/04/20 (unknown) (no (unknown) (unknown) codeine [CODEINE] (units (unknown) date) AdvReac Mild ITCHY unknown) Verified 10/04/20 06:45 (unknown) (no (unknown) (unknown) diazepam 5 mg (units ( unknown) date) tablet (Valium) 5 mg unknown) PO Q12HR PRN muscle spasm #10 09/15/20 (unknown) (no (unknown) (unknown) effusions or (units (u nknown) date) unknown) (unknown) (no (unknown) (unknown) enoxaparin 40 (units ( unknown) date) mg/0.4 mL 40 mg (0.4 unknown) mL) SUBCUT DAILY #4 mL 10/04/20 (unknown) (no (unknown) (unknown) esomeprazole (units (u nknown) date) magnesium 20 mg 20 unknown) mg PO DAILY 10/04/20 10/04/20 (unknown) (no (unknown) (unknown) fluticasone 500 (units (unknown) date) mcg-salmeterol 50 1 unknown) inh inhalation BID 10/04/20 10/04/20 (unknown) (no (unknown) (unknown) has history of (units (unknown) date) recurrent pneumonia unknown) as well as bronchitis. Patient tested (unknown) (no (unknown) (unknown) hemidiaphragms (units (unknown) date) compatible with unknown) COPD.? No acute consolidation.? No pleural (unknown) (no (unknown) (unknown) household members: (units (unknown) date) spouse unknown) (unknown) (no (unknown) (unknown) inhalation (Advair (units (unknown) date) Diskus) unknown) (unknown) (no (unknown) (unknown) ipratropium 0.5 (units (unknown) date) mg-albuterol 3 mg 3 unknown) ml inhalation Q6-8H PRN 06/06/20 (unknown) (no (unknown) (unknown) levothyroxine 100 (units (unknown) date) mcg tablet 100 mcg unknown) PO DAILY 06/27/19 10/04/20 (unknown) (no (unknown) (unknown) mcg/dose blistr (units (unknown) date) powdr for unknown) (unknown) (no (unknown) (unknown) montelukast 10 mg (units (unknown) date) tablet 10 mg PO unknown) DAILY 06/27/19 10/04/20 (unknown) (no (unknown) (unknown) ondansetron HCl 4 (units (unknown) date) mg tablet 4 mg PO unknown) Q8H PRN nausea and 10/04/20 (unknown) (no (unknown) (unknown) oxycodone 5 mg (units (unknown) date) tablet 5 mg PO Q4H unknown) PRN pain #42 tabs 10/04/20 (unknown) (no (unknown) (unknown) pneumothorax.? (units (unknown) date) unknown) (unknown) (no (unknown) (unknown) positive for (units (u nknown) date) parainfluenza 3 a unknown) few months ago. She is COVID vaccinated. (unknown) (no (unknown) (unknown) redemonstrated (units (unknown) date) bilaterally.? unknown) (unknown) (no (unknown) (unknown) release 24 hr (units ( unknown) date) unknown) (unknown) (no (unknown) (unknown) soln #90 mL (units (un known) date) unknown) (unknown) (no (unknown) (unknown) subcutaneous (units (u nknown) date) syringe (Lovenox) unknown) (unknown) (no (unknown) (unknown) tramadol 50 mg (units (unknown) date) tablet 50 mg PO BID unknown) PRN pain ##0 09/19/17 10/04/20 (unknown) (no (unknown) (unknown) unremarkable.? (units (unknown) date) unknown) (unknown) (no (unknown) (unknown) venlafaxine 75 mg (units (unknown) date) capsule,extended 75 unknown) mg PO DAILY 06/27/19 10/04/20 Result panel 8 (unknown) (no (unknown) (unknown) (no value) (units (unk nown) date) unknown) (unknown) (no (unknown) (unknown) Radiologist's (units ( unknown) date) Impression: unknown) (unknown) (no (unknown) (unknown) Date of Service: (units (unknown) date) 03/26/22 unknown) (unknown) (no (unknown) (unknown) (no value) (units (unk nown) date) unknown) (unknown) (no (unknown) (unknown) 03/26/22 02:10 (units (unknown) date) unknown) (unknown) (no (unknown) (unknown) 1 inh INHALATION (units (unknown) date) BID unknown) (unknown) (no (unknown) (unknown) 10 mg PO DAILY (units (unknown) date) unknown) (unknown) (no (unknown) (unknown) 100 mcg PO DAILY (units (unknown) date) unknown) (unknown) (no (unknown) (unknown) [address] [place] [address] (units (unknown) date) unknown) (unknown) (no (unknown) (unknown) 20 mg PO DAILY (units (unknown) date) unknown) (unknown) (no (unknown) (unknown) 3 ml INHALATION (units (unknown) date) Q6-8H PRN (Reason: unknown) shortness of breath or wheezing) Qty: 90 (unknown) (no (unknown) (unknown) 4 mg PO Q8H PRN (units (unknown) date) (Reason: nausea and unknown) vomiting) Qty: 7 1RF (unknown) (no (unknown) (unknown) 40 mg SUBCUT DAILY (units (unknown) date) Qty: 4 0RF unknown) (unknown) (no (unknown) (unknown) 5 mg PO DAILY (units ( unknown) date) unknown) (unknown) (no (unknown) (unknown) 5 mg PO Q12HR PRN (units (unknown) date) (Reason: muscle unknown) spasm) Qty: 10 0RF (unknown) (no (unknown) (unknown) 5 mg PO Q4H PRN (units (unknown) date) (Reason: pain) Qty: unknown) 42 0RF (unknown) (no (unknown) (unknown) 50 mg PO BID PRN (units (unknown) date) (Reason: pain) Qty: unknown) 0 (unknown) (no (unknown) (unknown) 75 mg PO DAILY (units (unknown) date) unknown) (unknown) (no (unknown) (unknown) Allergies (units (unkn own) date) unknown) (unknown) (no (unknown) (unknown) [place], [place] [address] (unit s (unknown) date) unknown) (unknown) (no (unknown) (unknown) Documented By: DKB (units (unknown) date) unknown) (unknown) (no (unknown) (unknown) Documented By: TV (units (unknown) date) unknown) (unknown) (no (unknown) (unknown) ED Orders (units (unkn own) date) unknown) (unknown) (no (unknown) (unknown) Emergency Report (units (unknown) date) unknown) (unknown) (no (unknown) (unknown) Home Medications (units (unknown) date) unknown) (unknown) (no (unknown) (unknown) [facility] (units (unknown) date) unknown) (unknown) (no (unknown) (unknown) [facility] (units (unknown) date) [address] unknown) [place] [address] (unknown) (no (unknown) (unknown) Lab Results (units (un known) date) unknown) (unknown) (no (unknown) (unknown) Last Admin: (units (un known) date) 03/26/22 01:13 unknown) Dose: 3 ml (unknown) (no (unknown) (unknown) Last Admin: (units (un known) date) 03/26/22 01:14 unknown) Dose: 2.5 mg (unknown) (no (unknown) (unknown) Last Admin: (units (un known) date) 03/26/22 01:54 unknown) Dose: 125 mg (unknown) (no (unknown) (unknown) Previous Rx's (units ( unknown) date) unknown) (unknown) (no (unknown) (unknown) Rx Instructions: (units (unknown) date) unknown) (unknown) (no (unknown) (unknown) Signed (units (unkno wn) date) unknown) (unknown) (no (unknown) (unknown) Stop: 03/26/22 (units (unknown) date) 01:05 unknown) (unknown) (no (unknown) (unknown) Stop: 03/26/22 (units (unknown) date) 01:44 unknown) (unknown) (no (unknown) (unknown) Vital Signs - 8 hr (units (unknown) date) unknown) (unknown) (no (unknown) (unknown) XRay Report (units (un known) date) unknown) (unknown) (no (unknown) (unknown) exempt postop (units ( unknown) date) unknown) (unknown) (no (unknown) (unknown) (no value) (units (unk nown) date) unknown) (unknown) (no (unknown) (unknown) 00:50 02:10 02:10 (units (unknown) date) unknown) (unknown) (no (unknown) (unknown) 02:10 02:10 (units (un known) date) unknown) (unknown) (no (unknown) (unknown) 03/26/22 03/26/22 (units (unknown) date) 03/26/22 Range/Units unknown) (unknown) (no (unknown) (unknown) 03/26/22 03/26/22 (units (unknown) date) Range/Units unknown) (unknown) (no (unknown) (unknown) cetirizine 5 mg (units (unknown) date) Tablet unknown) (unknown) (no (unknown) (unknown) diazepam [Valium] 5 (unit s (unknown) date) mg tablet unknown) (unknown) (no (unknown) (unknown) enoxaparin (units (unk nown) date) [Lovenox] 40 mg/0.4 unknown) mL syringe (unknown) (no (unknown) (unknown) esomeprazole (units (u nknown) date) magnesium [Nexium unknown) 24HR] 20 mg Capsule,Delayed Release(Dr/Ec) (unknown) (no (unknown) (unknown) fluticasone (units (un known) date) propion-salmeterol unknown) [Advair Diskus] 500-50 mcg/dose Blister With (unknown) (no (unknown) (unknown) ipratropium-albuter (unit s (unknown) date) ol 0.5 mg-3 mg(2.5 unknown) mg base)/3 mL solution for nebulization (unknown) (no (unknown) (unknown) levothyroxine 100 (units (unknown) date) mcg tablet unknown) (unknown) (no (unknown) (unknown) montelukast 10 mg (units (unknown) date) tablet unknown) (unknown) (no (unknown) (unknown) ondansetron HCl (units (unknown) date) [Zofran] 4 mg tablet unknown) (unknown) (no (unknown) (unknown) oxycodone 5 mg (units (unknown) date) tablet unknown) (unknown) (no (unknown) (unknown) tramadol 50 MG (units (unknown) date) tablet unknown) (unknown) (no (unknown) (unknown) venlafaxine 75 mg (units (unknown) date) capsule,extended unknown) release 24hr (unknown) (no (unknown) (unknown) 03/26/22 (units (unkno wn) date) unknown) (unknown) (no (unknown) (unknown) Acute bronchitis (units (unknown) date) due to Rhinovirus, unknown) Asthma exacerbation (unknown) (no (unknown) (unknown) Medication (units (unk nown) date) Instructions unknown) Recorded (unknown) (no (unknown) (unknown) Medication (units (unk nown) date) Instructions unknown) Recorded Confirmed (unknown) (no (unknown) (unknown) tabs (units (unkno wn) date) unknown) (unknown) (no (unknown) (unknown) #: [id number] (units ( unknown) date) unknown) (unknown) (no (unknown) (unknown) (2.5 mg base)/3 mL (units (unknown) date) nebulization unknown) shortness of breath or wheezing (unknown) (no (unknown) (unknown) (Zofran) vomiting (units (unknown) date) #7 tabs unknown) (unknown) (no (unknown) (unknown) 00:50 03/26/22 (units (unknown) date) unknown) (unknown) (no (unknown) (unknown) 01:15 (units (unkno wn) date) unknown) (unknown) (no (unknown) (unknown) 03/26/22 00:50 (units (unknown) date) unknown) (unknown) (no (unknown) (unknown) 03/26/22 01:02 (units (unknown) date) unknown) (unknown) (no (unknown) (unknown) 03/26/22 01:33 (units (unknown) date) unknown) (unknown) (no (unknown) (unknown) 03/26/22 02:10 (units (unknown) date) unknown) (unknown) (no (unknown) (unknown) 0RF (units (unkno wn) date) unknown) (unknown) (no (unknown) (unknown) 1. Findings (units (un known) date) consistent with COPD unknown) redemonstrated without acute consolidation.? (unknown) (no (unknown) (unknown) 100.6 and Tylenol (units (unknown) date) ordered unknown) (unknown) (no (unknown) (unknown) 24HR) (units (unkno wn) date) unknown) (unknown) (no (unknown) (unknown) ? (units (unkno wn) date) unknown) (unknown) (no (unknown) (unknown) ALT (<35) IU/L (units (unknown) date) unknown) (unknown) (no (unknown) (unknown) ALT 25 (<35) (units (unknown) date) IU/L unknown) (unknown) (no (unknown) (unknown) AST (14-36) (units (unknown) date) IU/L unknown) (unknown) (no (unknown) (unknown) AST 25 (14-36) (units (unknown) date) IU/L unknown) (unknown) (no (unknown) (unknown) Accession Number: (units (unknown) date) [id number] ?? unknown) (unknown) (no (unknown) (unknown) Acct:[id number] (units (unknown) date) unknown) (unknown) (no (unknown) (unknown) Activity (units (unkno wn) date) Restrictions/Additio unknown) nal Instructions: (unknown) (no (unknown) (unknown) Adenovirus (PCR) (units (unknown) date) (Not Detect) unknown) (unknown) (no (unknown) (unknown) Adenovirus (PCR) (units (unknown) date) Not detected (Not unknown) Detect) (unknown) (no (unknown) (unknown) Age/Sex: 66 / F (units (unknown) date) unknown) (unknown) (no (unknown) (unknown) Age/Sex: 66 / F (units (unknown) date) unknown) (unknown) (no (unknown) (unknown) Albumin (units (unkno wn) date) (3.5-5.0) g/dL unknown) (unknown) (no (unknown) (unknown) Albumin 4.1 (units (unknown) date) (3.5-5.0) g/dL unknown) (unknown) (no (unknown) (unknown) Albumin/Globulin (units (unknown) date) Ratio (1.0-2.8) unknown) (unknown) (no (unknown) (unknown) Albumin/Globulin (units (unknown) date) Ratio 1.7 unknown) (1.0-2.8) (unknown) (no (unknown) (unknown) Albuterol (units (unkn own) date) (Albuterol 2.5 Mg/3 unknown) Ml Neb (Adult)) 2.5 mg INH NOW ONE (unknown) (no (unknown) (unknown) Albuterol/Ipratropi (unit s (unknown) date) um unknown) (Albuterol/Ipratropi um 3 Ml Ampul) 3 ml INH NOW ONE (unknown) (no (unknown) (unknown) Alkaline (units (unkno wn) date) Phosphatase unknown) (38-126) U/L (unknown) (no (unknown) (unknown) Alkaline (units (unkno wn) date) Phosphatase 90 unknown) (38-126) U/L (unknown) (no (unknown) (unknown) Allergy/AdvReac (units (unknown) date) Type Severity unknown) Reaction Status Date / Time (unknown) (no (unknown) (unknown) Appropriate for (units (unknown) date) discharge home. unknown) Patient already has steroid pack as well as (unknown) (no (unknown) (unknown) Approved by: Rory (unit s (unknown) date) Juanis Dillon M.D. on unknown) 03/26/2022 at 2:47 ? (unknown) (no (unknown) (unknown) Asthma (units (unkno wn) date) unknown) (unknown) (no (unknown) (unknown) B. pertussis DNA (units (unknown) date) (PCR) (Not unknown) Detecte) (unknown) (no (unknown) (unknown) B. pertussis DNA (units (unknown) date) (PCR) Not detected unknown) (Not Detecte) (unknown) (no (unknown) (unknown) B.parapertussis DNA (unit s (unknown) date) PCR (Not unknown) Detecte) (unknown) (no (unknown) (unknown) B.parapertussis DNA (unit s (unknown) date) PCR Not detected unknown) (Not Detecte) (unknown) (no (unknown) (unknown) BACK: No flank (units (unknown) date) tenderness. unknown) (unknown) (no (unknown) (unknown) BUN (7-17) (units ( unknown) date) mg/dL unknown) (unknown) (no (unknown) (unknown) BUN 15 (7-17) (units (unknown) date) mg/dL unknown) (unknown) (no (unknown) (unknown) BUN/Creatinine (units (unknown) date) Ratio (6-22) unknown) (unknown) (no (unknown) (unknown) BUN/Creatinine (units (unknown) date) Ratio 18.8 unknown) (6-22) (unknown) (no (unknown) (unknown) Baso # (Auto) (units ( unknown) date) (0-100) /uL unknown) (unknown) (no (unknown) (unknown) Baso # (Auto) 0 (units (unknown) date) (0-100) /uL unknown) (unknown) (no (unknown) (unknown) Baso % (Auto) (units ( unknown) date) (0-2) % unknown) (unknown) (no (unknown) (unknown) Baso % (Auto) 0.4 (unit s (unknown) date) (0-2) % unknown) (unknown) (no (unknown) (unknown) Blood Pressure (units (unknown) date) 180/80 H 03/26/22 unknown) 00:50 (unknown) (no (unknown) (unknown) Blood Pressure (units (unknown) date) 180/80 H unknown) (unknown) (no (unknown) (unknown) Blood pressure (units (unknown) date) improved 128/58, 92% unknown) room air pulse 95. Temperature noted at (unknown) (no (unknown) (unknown) Bones and chest (units (unknown) date) wall:? No suspicious unknown) bony abnormalities.? Soft tissues appear (unknown) (no (unknown) (unknown) CARDIOVASCULAR: (units (unknown) date) Denies chest pain, unknown) palpitations (unknown) (no (unknown) (unknown) CARDIOVASCULAR: (units (unknown) date) Regular rate and unknown) rhythm without murmurs (unknown) (no (unknown) (unknown) CBC Auto Diff (units ( unknown) date) [Complete Blood unknown) Count AUTO DIFF] Stat (unknown) (no (unknown) (unknown) CHEST 2V, (units (unkn own) date) 06/06/2020, 14:48. unknown) (unknown) (no (unknown) (unknown) CMP [Comprehensive (units (unknown) date) Metabolic Panel] unknown) Stat (unknown) (no (unknown) (unknown) [facility], [facility], XR unknown) CHEST 2V, 12/16/2018, 14:34.? [facility] ([facility]) (no (unknown) (unknown) COVID19 -Nasal (units (unknown) date) RAPID/Pre-Proc Stat unknown) (unknown) (no (unknown) (unknown) Calcium (units (unkno wn) date) (8.4-10.2) mg/dL unknown) (unknown) (no (unknown) (unknown) Calcium 9.0 (units (unknown) date) (8.4-10.2) mg/dL unknown) (unknown) (no (unknown) (unknown) Carbon Dioxide (units (unknown) date) (22-32) mmol/L unknown) (unknown) (no (unknown) (unknown) Carbon Dioxide (units (unknown) date) 28 (22-32) mmol/L unknown) (unknown) (no (unknown) (unknown) Chest [XR chest 2V] (unit s (unknown) date) Stat unknown) (unknown) (no (unknown) (unknown) Chest x-ray: (units (u nknown) date) unknown) (unknown) (no (unknown) (unknown) Chief Complaint: (units (unknown) date) Shortness of unknown) Breath/Dyspnea (unknown) (no (unknown) (unknown) Chlamy pneumoniae (units (unknown) date) PCR (Not Detect) unknown) (unknown) (no (unknown) (unknown) Chlamy pneumoniae (units (unknown) date) PCR Not detected unknown) (Not Detect) (unknown) (no (unknown) (unknown) Chloride (units (unkno wn) date) (98-107) mmol/L unknown) (unknown) (no (unknown) (unknown) Chloride 106 (units (unknown) date) (98-107) mmol/L unknown) (unknown) (no (unknown) (unknown) Clinical (units (unkno wn) date) Impression: unknown) (unknown) (no (unknown) (unknown) Coronavirus 229E (units (unknown) date) (PCR) (Not unknown) Detect) (unknown) (no (unknown) (unknown) Coronavirus 229E (units (unknown) date) (PCR) Not detected unknown) (Not Detect) (unknown) (no (unknown) (unknown) Coronavirus HKU1 (units (unknown) date) (PCR) (Not unknown) Detect) (unknown) (no (unknown) (unknown) Coronavirus HKU1 (units (unknown) date) (PCR) Not detected unknown) (Not Detect) (unknown) (no (unknown) (unknown) Coronavirus NL63 (units (unknown) date) (PCR) (Not unknown) Detect) (unknown) (no (unknown) (unknown) Coronavirus NL63 (units (unknown) date) (PCR) Not detected unknown) (Not Detect) (unknown) (no (unknown) (unknown) Coronavirus OC43 (units (unknown) date) (PCR) (Not unknown) Detect) (unknown) (no (unknown) (unknown) Coronavirus OC43 (units (unknown) date) (PCR) Not detected unknown) (Not Detect) (unknown) (no (unknown) (unknown) Course (units (unkno wn) date) unknown) (unknown) (no (unknown) (unknown) Course Narrative: (units (unknown) date) unknown) (unknown) (no (unknown) (unknown) Creatinine (units (unk nown) date) (0.52-1.04) mg/dL unknown) (unknown) (no (unknown) (unknown) Creatinine 0.80 (units (unknown) date) (0.52-1.04) mg/dL unknown) (unknown) (no (unknown) (unknown) DDD (degenerative (units (unknown) date) disc disease) unknown) (unknown) (no (unknown) (unknown) DJD (degenerative (units (unknown) date) joint disease) unknown) (unknown) (no (unknown) (unknown) : 1955 (units (unknown) date) Acct:[id number] unknown) (unknown) (no (unknown) (unknown) : 1955 (units (unknown) date) unknown) (unknown) (no (unknown) (unknown) Date of Service: (units (unknown) date) 03/26/22 unknown) (unknown) (no (unknown) (unknown) Departure (units (unkn own) date) unknown) (unknown) (no (unknown) (unknown) Depression (units (unk nown) date) unknown) (unknown) (no (unknown) (unknown) Desch,Jen, PA-C (unit s (unknown) date) [Primary Care unknown) Provider] - (unknown) (no (unknown) (unknown) Device (units (unkno wn) date) unknown) (unknown) (no (unknown) (unknown) Dictated by: Rory (unit s (unknown) date) Juanis Dillon M.D. on unknown) 03/26/2022 at 2:46 ? ? (unknown) (no (unknown) (unknown) Differential (units (u nknown) date) Diagnosis unknown) (unknown) (no (unknown) (unknown) Differential (units (u nknown) date) diagnosis: Likely unknown) upper respiratory infection, viral infection, (unknown) (no (unknown) (unknown) Discharge Plan (units (unknown) date) unknown) (unknown) (no (unknown) (unknown) Discontinued (units (u nknown) date) Medications unknown) (unknown) (no (unknown) (unknown) ENT: Mucous (units (u nknown) date) membranes moist. unknown) (unknown) (no (unknown) (unknown) ER Physician: (units ( unknown) date) Miguel Ashraf MD unknown) (unknown) (no (unknown) (unknown) EXTREMITIES: No (units (unknown) date) gross deformities. unknown) (unknown) (no (unknown) (unknown) EYES: Pupils equal (units (unknown) date) round No scleral unknown) icterus. (unknown) (no (unknown) (unknown) Entero/Rhino (PCR) (units (unknown) date) (Not Detect) unknown) (unknown) (no (unknown) (unknown) Entero/Rhino (PCR) (units (unknown) date) Detected H (Not unknown) Detect) (unknown) (no (unknown) (unknown) Eos # (Auto) (units (u nknown) date) (0-450) /uL unknown) (unknown) (no (unknown) (unknown) Eos # (Auto) 0 (units (unknown) date) (0-450) /uL unknown) (unknown) (no (unknown) (unknown) Eos % (Auto) (units (u nknown) date) (2-4) % unknown) (unknown) (no (unknown) (unknown) Eos % (Auto) 0.1 (units (unknown) date) L (2-4) % unknown) (unknown) (no (unknown) (unknown) Estimated GFR > (units (unknown) date) 60 (>60) mL/min unknown) (unknown) (no (unknown) (unknown) Estimated GFR (units ( unknown) date) (>60) mL/min unknown) (unknown) (no (unknown) (unknown) Exam (units (unkno wn) date) unknown) (unknown) (no (unknown) (unknown) Exam Narrative: (units (unknown) date) unknown) (unknown) (no (unknown) (unknown) FINDINGS:? (units (unk nown) date) unknown) (unknown) (no (unknown) (unknown) GASTROINTESTINAL: (units (unknown) date) Abdomen soft, unknown) non-tender (unknown) (no (unknown) (unknown) GASTROINTESTINAL: (units (unknown) date) Denies nausea, unknown) vomiting, abdominal pain (unknown) (no (unknown) (unknown) GENERAL: Positive (units (unknown) date) for chills, fatigue, unknown) malaise, fever, sweats. (unknown) (no (unknown) (unknown) GENERAL: in no (units (unknown) date) distress, not toxic unknown) not dyspneic (unknown) (no (unknown) (unknown) : Denies dysuria, (unit s (unknown) date) frequency, hematuria unknown) (unknown) (no (unknown) (unknown) General (units (unkno wn) date) unknown) (unknown) (no (unknown) (unknown) GenericComposite[Pl (unit s (unknown) date) t Count (150-400) unknown) X10^3/uL ] (unknown) (no (unknown) (unknown) GenericComposite[Pl (unit s (unknown) date) t Count 301 unknown) (150-400) X10^3/uL ] (unknown) (no (unknown) (unknown) GenericComposite[RB (unit s (unknown) date) C (4.0-5.2) unknown) X10^6/uL ] (unknown) (no (unknown) (unknown) GenericComposite[RB (unit s (unknown) date) C 4.10 (4.0-5.2) unknown) X10^6/uL ] (unknown) (no (unknown) (unknown) GenericComposite[WB (unit s (unknown) date) C (4.5-11.0) unknown) X10^3/uL ] (unknown) (no (unknown) (unknown) GenericComposite[WB (unit s (unknown) date) C 11.5 H unknown) (4.5-11.0) X10^3/uL ] (unknown) (no (unknown) (unknown) Globulin (units (unkno wn) date) (1.7-4.1) g/dL unknown) (unknown) (no (unknown) (unknown) Globulin 2.4 (units (unknown) date) (1.7-4.1) g/dL unknown) (unknown) (no (unknown) (unknown) Glucose (80-110) (unit s (unknown) date) mg/dL unknown) (unknown) (no (unknown) (unknown) Glucose 170 H (units (unknown) date) (80-110) mg/dL unknown) (unknown) (no (unknown) (unknown) HEAD: (units (unkno wn) date) Normocephalic. unknown) (unknown) (no (unknown) (unknown) HEENT: Denies sinus (unit s (unknown) date) pain, ear pain, sore unknown) throat (unknown) (no (unknown) (unknown) HPI - URI/Sore (units (unknown) date) Throat unknown) (unknown) (no (unknown) (unknown) HPI Narrative: (units (unknown) date) unknown) (unknown) (no (unknown) (unknown) Hct (36-46) % (units (unknown) date) unknown) (unknown) (no (unknown) (unknown) Hct 37.5 (units (unk nown) date) (36-46) % unknown) (unknown) (no (unknown) (unknown) Hgb (12.0-16.0) (units (unknown) date) g/dL unknown) (unknown) (no (unknown) (unknown) Hgb 12.4 (units (unk nown) date) (12.0-16.0) g/dL unknown) (unknown) (no (unknown) (unknown) History of Present (units (unknown) date) Illness unknown) (unknown) (no (unknown) (unknown) History of (units (unk nown) date) bilateral breast unknown) implants (1988) (unknown) (no (unknown) (unknown) History of (units (unk nown) date) hypothyroidism unknown) (unknown) (no (unknown) (unknown) History of surgery (units (unknown) date) (04/2014) unknown) (unknown) (no (unknown) (unknown) History of (units (unk nown) date) tonsillectomy and unknown) adenoidectomy (unknown) (no (unknown) (unknown) History of total (units (unknown) date) abdominal unknown) hysterectomy (unknown) (no (unknown) (unknown) Hospital, CR, XR (units (unknown) date) unknown) (unknown) (no (unknown) (unknown) Human Metapneumovir (unit s (unknown) date) PCR (Not Detect) unknown) (unknown) (no (unknown) (unknown) Human Metapneumovir (unit s (unknown) date) PCR Not detected unknown) (Not Detect) (unknown) (no (unknown) (unknown) Hx of appendectomy (units (unknown) date) (1977) unknown) (unknown) (no (unknown) (unknown) Hx of elbow surgery (unit s (unknown) date) unknown) (unknown) (no (unknown) (unknown) Hyperlipidemia (units (unknown) date) unknown) (unknown) (no (unknown) (unknown) IMPRESSION:? (units (u nknown) date) unknown) (unknown) (no (unknown) (unknown) INDICATIONS:? short (unit s (unknown) date) of breath unknown) (unknown) (no (unknown) (unknown) Imaging Data (units (u nknown) date) unknown) (unknown) (no (unknown) (unknown) Influenza Type A (units (unknown) date) (PCR) (Not unknown) Detect) (unknown) (no (unknown) (unknown) Influenza Type A (units (unknown) date) (PCR) Not detected unknown) (Not Detect) (unknown) (no (unknown) (unknown) Influenza Type B (units (unknown) date) (PCR) (Not unknown) Detect) (unknown) (no (unknown) (unknown) Influenza Type B (units (unknown) date) (PCR) Not detected unknown) (Not Detect) (unknown) (no (unknown) (unknown) Inhibitor (units (unkn own) date) unknown) (unknown) (no (unknown) (unknown) Inhibitor] (units (unk nown) date) unknown) (unknown) (no (unknown) (unknown) Initial Vital Signs (unit s (unknown) date) unknown) (unknown) (no (unknown) (unknown) Initial Vital (units ( unknown) date) Signs: unknown) (unknown) (no (unknown) (unknown) Instructions: (units ( unknown) date) Acute Bronchitis, DI unknown) for Asthma -- Adult, DI for Viral Upper (unknown) (no (unknown) (unknown) Lab Data (units (unkno wn) date) unknown) (unknown) (no (unknown) (unknown) Labs: (units (unkno wn) date) unknown) (unknown) (no (unknown) (unknown) Lactate (units (unkno wn) date) (0.7-2.1) mmol/L unknown) (unknown) (no (unknown) (unknown) Lactate 2.9 H (units (unknown) date) (0.7-2.1) mmol/L unknown) (unknown) (no (unknown) (unknown) Lactate (Lactic (units (unknown) date) Acid) Stat unknown) (unknown) (no (unknown) (unknown) Loc: ED (units (unkno wn) date) unknown) (unknown) (no (unknown) (unknown) Lungs and pleura:? (units (unknown) date) There is unknown) hyperinflation of the lungs with flattening of the (unknown) (no (unknown) (unknown) Lymph # (Auto) (units (unknown) date) (4160-8905) /uL unknown) (unknown) (no (unknown) (unknown) Lymph # (Auto) (units (unknown) date) 1500 (7116-3023) unknown) /uL (unknown) (no (unknown) (unknown) Lymph % (Auto) (units (unknown) date) (25-40) % unknown) (unknown) (no (unknown) (unknown) Lymph % (Auto) (units (unknown) date) 12.9 L (25-40) % unknown) (unknown) (no (unknown) (unknown) M. pneumoniae (PCR) (unit s (unknown) date) (Not Detect) unknown) (unknown) (no (unknown) (unknown) M. pneumoniae (PCR) (unit s (unknown) date) Not detected (Not unknown) Detect) (unknown) (no (unknown) (unknown) MCH (26-34) PG (units (unknown) date) unknown) (unknown) (no (unknown) (unknown) MCH 30.4 (units (unk nown) date) (26-34) PG unknown) (unknown) (no (unknown) (unknown) MCHC (30-36) % (units (unknown) date) unknown) (unknown) (no (unknown) (unknown) MCHC 33.2 (units (un known) date) (30-36) % unknown) (unknown) (no (unknown) (unknown) MCV (80-100) fL (unit s (unknown) date) unknown) (unknown) (no (unknown) (unknown) MCV 91.6 (units (unk nown) date) (80-100) fL unknown) (unknown) (no (unknown) (unknown) MDM - URI/Sore (units (unknown) date) Throat unknown) (unknown) (no (unknown) (unknown) MDM Narrative (units ( unknown) date) unknown) (unknown) (no (unknown) (unknown) MR#: [id number] (units (unknown) date) unknown) (unknown) (no (unknown) (unknown) MUSCULOSKELETAL: (units (unknown) date) denies muscle or unknown) bony pain (unknown) (no (unknown) (unknown) Mediastinum:? (units ( unknown) date) Mediastinal contours unknown) are normal.? Heart size is normal.? (unknown) (no (unknown) (unknown) Medical History (units (unknown) date) (Reviewed 03/26/22 @ unknown) 01:47 by Miguel Ashraf MD) (unknown) (no (unknown) (unknown) Medical decision (units (unknown) date) making narrative: unknown) (unknown) (no (unknown) (unknown) Methylprednisolone (units (unknown) date) (Methylprednisolone unknown) 125 Mg/2 Ml Vial) 125 mg IV NOW ONE (unknown) (no (unknown) (unknown) Mode of arrival: (units (unknown) date) Ambulatory unknown) (unknown) (no (unknown) (unknown) [place] # (Auto) (units ( unknown) date) (0-900) /uL unknown) (unknown) (no (unknown) (unknown) [place] # (Auto) 900 (unit s (unknown) date) (0-900) /uL unknown) (unknown) (no (unknown) (unknown) [place] % (Auto) (units ( unknown) date) (3-14) % unknown) (unknown) (no (unknown) (unknown) [place] % (Auto) 8.1 (unit s (unknown) date) (3-14) % unknown) (unknown) (no (unknown) (unknown) NECK: Trachea (units ( unknown) date) midline. unknown) (unknown) (no (unknown) (unknown) NEURO: AOx4. (units (u nknown) date) unknown) (unknown) (no (unknown) (unknown) NEUROLOGIC: Denies (units (unknown) date) weakness, numbness unknown) (unknown) (no (unknown) (unknown) Narrative (units (unkn own) date) unknown) (unknown) (no (unknown) (unknown) Narrative: (units (unk nown) date) unknown) (unknown) (no (unknown) (unknown) Neut # (Auto) (units ( unknown) date) (2216-4742) /uL unknown) (unknown) (no (unknown) (unknown) Neut # (Auto) (units ( unknown) date) 9000 H (8618-0828) unknown) /uL (unknown) (no (unknown) (unknown) Neut % (Auto) (units ( unknown) date) (50-75) % unknown) (unknown) (no (unknown) (unknown) Neut % (Auto) (units ( unknown) date) 78.5 H (50-75) % unknown) (unknown) (no (unknown) (unknown) No Action (units (unkn own) date) unknown) (unknown) (no (unknown) (unknown) No new issues (units ( unknown) date) during course of unknown) stay (unknown) (no (unknown) (unknown) No pertinent past (units (unknown) date) surgical history unknown) (unknown) (no (unknown) (unknown) Ordered: (units (unkno wn) date) unknown) (unknown) (no (unknown) (unknown) Ordering Provider: (units (unknown) date) Miguel Ashraf MD unknown) (unknown) (no (unknown) (unknown) Orders (units (unkno wn) date) unknown) (unknown) (no (unknown) (unknown) Oxygen Delivery (units (unknown) date) Method 03/26/22 unknown) 00:50 (unknown) (no (unknown) (unknown) Oxygen Delivery (units (unknown) date) Method Room Air Room unknown) Air (unknown) (no (unknown) (unknown) Oxygen Flow Rate 0 (unit s (unknown) date) unknown) (unknown) (no (unknown) (unknown) PROCEDURE:? XR (units (unknown) date) CHEST 2V unknown) (unknown) (no (unknown) (unknown) PSYCH: Not (units (un known) date) anxious, is unknown) cooperative (unknown) (no (unknown) (unknown) Parainfluenza 1 (units (unknown) date) (PCR) (Not unknown) Detect) (unknown) (no (unknown) (unknown) Parainfluenza 1 (units (unknown) date) (PCR) Not detected unknown) (Not Detect) (unknown) (no (unknown) (unknown) Parainfluenza 2 (units (unknown) date) (PCR) (Not unknown) Detect) (unknown) (no (unknown) (unknown) Parainfluenza 2 (units (unknown) date) (PCR) Not detected unknown) (Not Detect) (unknown) (no (unknown) (unknown) Parainfluenza 3 (units (unknown) date) (PCR) (Not unknown) Detect) (unknown) (no (unknown) (unknown) Parainfluenza 3 (units (unknown) date) (PCR) Not detected unknown) (Not Detect) (unknown) (no (unknown) (unknown) Parainfluenza 4 (units (unknown) date) (PCR) (Not unknown) Detect) (unknown) (no (unknown) (unknown) Parainfluenza 4 (units (unknown) date) (PCR) Not detected unknown) (Not Detect) (unknown) (no (unknown) (unknown) Patient (units (unkno wn) date) Disposition: Home unknown) (unknown) (no (unknown) (unknown) Patient History (units (unknown) date) unknown) (unknown) (no (unknown) (unknown) Patient here with (units (unknown) date) . Complaints unknown) fever chills cough and wheezing. Feeling (unknown) (no (unknown) (unknown) Patient sleeping. (units (unknown) date) Awoke to review unknown) results with her and . Patient feels (unknown) (no (unknown) (unknown) Patient: (units (unkno wn) date) Milagro Clifton unknown) E MR (unknown) (no (unknown) (unknown) Patient: (units (unkno wn) date) Milagro Clifton unknown) E (unknown) (no (unknown) (unknown) Potassium (units (unkn own) date) (3.4-5.1) mmol/L unknown) (unknown) (no (unknown) (unknown) Potassium 3.5 (units (unknown) date) (3.4-5.1) mmol/L unknown) (unknown) (no (unknown) (unknown) Prescriptions: (units (unknown) date) unknown) (unknown) (no (unknown) (unknown) Procalcitonin (units ( unknown) date) (<0.5) ng/mL unknown) (unknown) (no (unknown) (unknown) Procalcitonin (units ( unknown) date) 0.06 (<0.5) ng/mL unknown) (unknown) (no (unknown) (unknown) Procalcitonin Stat (units (unknown) date) unknown) (unknown) (no (unknown) (unknown) Procedure: XR chest (unit s (unknown) date) 2V unknown) (unknown) (no (unknown) (unknown) Psoriasis (units (unkn own) date) unknown) (unknown) (no (unknown) (unknown) Pulse Oximetry 95 (units (unknown) date) 03/26/22 00:50 unknown) (unknown) (no (unknown) (unknown) Pulse Oximetry 95 (units (unknown) date) 96 unknown) (unknown) (no (unknown) (unknown) Pulse Rate 94 H (units (unknown) date) 03/26/22 00:50 unknown) (unknown) (no (unknown) (unknown) Pulse Rate 94 H (units (unknown) date) unknown) (unknown) (no (unknown) (unknown) RDW (11.6-14.8) (units (unknown) date) % unknown) (unknown) (no (unknown) (unknown) RDW 13.4 (units (unk nown) date) (11.6-14.8) % unknown) (unknown) (no (unknown) (unknown) RESPIRATORY: (units (u nknown) date) Positive for unknown) dyspnea, cough (unknown) (no (unknown) (unknown) RESPIRATORY: (units (u nknown) date) Speaking full unknown) sentences. In no distress. There is coarse (unknown) (no (unknown) (unknown) ROS Unobtainable: (units (unknown) date) All systems reviewed unknown) + are unremarkable except as noted in HPI (unknown) (no (unknown) (unknown) RSV (PCR) (Not (units (unknown) date) Detect) unknown) (unknown) (no (unknown) (unknown) RSV (PCR) Not (units (unknown) date) detected (Not unknown) Detect) (unknown) (no (unknown) (unknown) RT Consult Eval and (unit s (unknown) date) Treat NOW unknown) (unknown) (no (unknown) (unknown) Reevaluation #1: (units (unknown) date) unknown) (unknown) (no (unknown) (unknown) Reevaluation(s) (units (unknown) date) unknown) (unknown) (no (unknown) (unknown) Referrals: (units (unk nown) date) unknown) (unknown) (no (unknown) (unknown) Related Data (units (u nknown) date) unknown) (unknown) (no (unknown) (unknown) Respiratory (units (un known) date) Infection -- Adult unknown) (unknown) (no (unknown) (unknown) Respiratory Panel (units (unknown) date) (Film Array) Stat unknown) (unknown) (no (unknown) (unknown) Respiratory Rate (units (unknown) date) 03/26/22 00:50 unknown) (unknown) (no (unknown) (unknown) Respiratory Rate 23 (unit s (unknown) date) unknown) (unknown) (no (unknown) (unknown) Result diagrams: (units (unknown) date) unknown) (unknown) (no (unknown) (unknown) Review of Systems (units (unknown) date) unknown) (unknown) (no (unknown) (unknown) SARS-CoV-2 (PCR) (units (unknown) date) Not detected unknown) (Negative) (unknown) (no (unknown) (unknown) SARS-CoV-2 (PCR) (units (unknown) date) Negative unknown) (Negative) (unknown) (no (unknown) (unknown) SKIN: Warm and dry (unit s (unknown) date) unknown) (unknown) (no (unknown) (unknown) SKIN: Denies rash, (units (unknown) date) skin lesions unknown) (unknown) (no (unknown) (unknown) She is currently (units (unknown) date) taking prednisone unknown) tapered regimen (unknown) (no (unknown) (unknown) Signed By: (units (unk nown) date) unknown) (unknown) (no (unknown) (unknown) Sinusitis (units (unkn own) date) unknown) (unknown) (no (unknown) (unknown) Smoking Status: (units (unknown) date) Current every day unknown) smoker (unknown) (no (unknown) (unknown) Smoking Status: (units (unknown) date) Current every day unknown) smoker (unknown) (no (unknown) (unknown) Social History (units (unknown) date) (Reviewed 03/26/22 @ unknown) 01:47 by Miguel Ashraf MD) (unknown) (no (unknown) (unknown) Sodium (137-145) (unit s (unknown) date) mmol/L unknown) (unknown) (no (unknown) (unknown) Sodium 139 (units ( unknown) date) (137-145) mmol/L unknown) (unknown) (no (unknown) (unknown) Solu-Medrol here. (units (unknown) date) Return precautions unknown) reviewed with patient. She desires (unknown) (no (unknown) (unknown) Source: patient (units (unknown) date) unknown) (unknown) (no (unknown) (unknown) Stand Alone Forms: (units (unknown) date) Work Release Note unknown) (unknown) (no (unknown) (unknown) Stated Complaint: (units (unknown) date) BAD ASTHMA HARD TO unknown) BREATH (unknown) (no (unknown) (unknown) [id number] (units (unknown) date) Reductase AdvReac unknown) Mild Muscle Pain Verified 10/04/20 06:45 (unknown) (no (unknown) (unknown) Stop smoking. See (units (unknown) date) family doctor within unknown) a week for recheck. Continue home (unknown) (no (unknown) (unknown) Substance Use Type: (unit s (unknown) date) does not use unknown) (unknown) (no (unknown) (unknown) Surgical History (units (unknown) date) (Reviewed 03/26/22 @ unknown) 01:47 by Miguel Ashraf MD) (unknown) (no (unknown) (unknown) Surgical changes (units (unknown) date) and devices:? There unknown) are peripherally calcified breast implants (unknown) (no (unknown) (unknown) TECHNIQUE:? 2 views (unit s (unknown) date) of the chest were unknown) acquired.? (unknown) (no (unknown) (unknown) Temperature 99.8 F (unit s (unknown) date) H 03/26/22 00:50 unknown) (unknown) (no (unknown) (unknown) Temperature 99.8 F (units (unknown) date) H unknown) (unknown) (no (unknown) (unknown) Time Seen by (units (u nknown) date) Provider: 03/26/22 unknown) 01:36 (unknown) (no (unknown) (unknown) Time: 03:39 (units (un known) date) unknown) (unknown) (no (unknown) (unknown) Total Bilirubin (units (unknown) date) (0.2-1.3) mg/dL unknown) (unknown) (no (unknown) (unknown) Total Bilirubin (units (unknown) date) 0.3 (0.2-1.3) unknown) mg/dL (unknown) (no (unknown) (unknown) Total Protein (units ( unknown) date) (6.3-8.2) g/dL unknown) (unknown) (no (unknown) (unknown) Total Protein (units ( unknown) date) 6.5 (6.3-8.2) g/dL unknown) (unknown) (no (unknown) (unknown) Vital Signs (units (un known) date) unknown) (unknown) (no (unknown) (unknown) Vital signs: (units (u nknown) date) unknown) (unknown) (no (unknown) (unknown) [Embedded Image Not (unit s (unknown) date) Available] unknown) (unknown) (no (unknown) (unknown) [[id number] (units (unknown) date) Reductase unknown) (unknown) (no (unknown) (unknown) alcohol intake (units (unknown) date) frequency: 0-2 unknown) drinks per day (unknown) (no (unknown) (unknown) alcohol intake: (units (unknown) date) current unknown) (unknown) (no (unknown) (unknown) and below (units (unkn own) date) unknown) (unknown) (no (unknown) (unknown) asthma. Is a (units (u nknown) date) smoker. History of unknown) diabetes. Recently had chest x-ray 2 days ago (unknown) (no (unknown) (unknown) at another (units (unk nown) date) hospital. Currently unknown) on prednisone pack. She does smoke. Patient (unknown) (no (unknown) (unknown) better after (units (u nknown) date) breathing treatment unknown) here nebulizer. Patient has history for (unknown) (no (unknown) (unknown) bilateral basilar (units (unknown) date) lung sounds. Has unknown) scant wheezing. (unknown) (no (unknown) (unknown) bronchitis, (units (un known) date) influenza and other unknown) (Pneumonia/asthma exacerbation) (unknown) (no (unknown) (unknown) capsule,delayed (units (unknown) date) release (Nexium unknown) (unknown) (no (unknown) (unknown) cetirizine 5 mg (units (unknown) date) tablet 5 mg PO DAILY unknown) 10/04/20 10/04/20 (unknown) (no (unknown) (unknown) codeine [CODEINE] (units (unknown) date) AdvReac Mild ITCHY unknown) Verified 10/04/20 06:45 (unknown) (no (unknown) (unknown) cough medication (units (unknown) date) and breathing unknown) treatments at home. Feels much better after (unknown) (no (unknown) (unknown) diazepam 5 mg (units ( unknown) date) tablet (Valium) 5 mg unknown) PO Q12HR PRN muscle spasm #10 09/15/20 (unknown) (no (unknown) (unknown) discharge home. (units (unknown) date) She does have a unknown) family doctor to follow up with. (unknown) (no (unknown) (unknown) effusions or (units (u nknown) date) unknown) (unknown) (no (unknown) (unknown) enoxaparin 40 (units ( unknown) date) mg/0.4 mL 40 mg (0.4 unknown) mL) SUBCUT DAILY #4 mL 10/04/20 (unknown) (no (unknown) (unknown) esomeprazole (units (u nknown) date) magnesium 20 mg 20 unknown) mg PO DAILY 10/04/20 10/04/20 (unknown) (no (unknown) (unknown) fluticasone 500 (units (unknown) date) mcg-salmeterol 50 1 unknown) inh inhalation BID 10/04/20 10/04/20 (unknown) (no (unknown) (unknown) has history of (units (unknown) date) recurrent pneumonia unknown) as well as bronchitis. Patient tested (unknown) (no (unknown) (unknown) hemidiaphragms (units (unknown) date) compatible with unknown) COPD.? No acute consolidation.? No pleural (unknown) (no (unknown) (unknown) household members: (units (unknown) date) spouse unknown) (unknown) (no (unknown) (unknown) inhalation (Advair (units (unknown) date) Diskus) unknown) (unknown) (no (unknown) (unknown) ipratropium 0.5 (units (unknown) date) mg-albuterol 3 mg 3 unknown) ml inhalation Q6-8H PRN 06/06/20 (unknown) (no (unknown) (unknown) levothyroxine 100 (units (unknown) date) mcg tablet 100 mcg unknown) PO DAILY 06/27/19 10/04/20 (unknown) (no (unknown) (unknown) mcg/dose blistr (units (unknown) date) powdr for unknown) (unknown) (no (unknown) (unknown) montelukast 10 mg (units (unknown) date) tablet 10 mg PO unknown) DAILY 06/27/19 10/04/20 (unknown) (no (unknown) (unknown) much better. She (units (unknown) date) does need a work unknown) note for today. She states she has breathing (unknown) (no (unknown) (unknown) ondansetron HCl 4 (units (unknown) date) mg tablet 4 mg PO unknown) Q8H PRN nausea and 10/04/20 (unknown) (no (unknown) (unknown) oxycodone 5 mg (units (unknown) date) tablet 5 mg PO Q4H unknown) PRN pain #42 tabs 10/04/20 (unknown) (no (unknown) (unknown) pneumothorax.? (units (unknown) date) unknown) (unknown) (no (unknown) (unknown) positive for (units (u nknown) date) parainfluenza 3 a unknown) few months ago. She is COVID vaccinated. (unknown) (no (unknown) (unknown) redemonstrated (units (unknown) date) bilaterally.? unknown) (unknown) (no (unknown) (unknown) release 24 hr (units ( unknown) date) unknown) (unknown) (no (unknown) (unknown) soln #90 mL (units (un known) date) unknown) (unknown) (no (unknown) (unknown) steroid pack. (units ( unknown) date) Continue home cough unknown) medication. Continue home breathing (unknown) (no (unknown) (unknown) subcutaneous (units (u nknown) date) syringe (Lovenox) unknown) (unknown) (no (unknown) (unknown) tramadol 50 mg (units (unknown) date) tablet 50 mg PO BID unknown) PRN pain ##0 09/19/17 10/04/20 (unknown) (no (unknown) (unknown) treatments at home (units (unknown) date) as well as cough unknown) medication. She desires discharge home. (unknown) (no (unknown) (unknown) treatments. Return (unit s (unknown) date) if worse if any unknown) questions or concerns. (unknown) (no (unknown) (unknown) unremarkable.? (units (unknown) date) unknown) (unknown) (no (unknown) (unknown) venlafaxine 75 mg (units (unknown) date) capsule,extended 75 unknown) mg PO DAILY 06/27/19 10/04/20 Result panel 9 (unknown) (no (unknown) (unknown) (no value) (units (unk nown) date) unknown) (unknown) (no (unknown) (unknown) Radiologist's (units ( unknown) date) Impression: unknown) (unknown) (no (unknown) (unknown) Date of Service: (units (unknown) date) 03/26/22 unknown) (unknown) (no (unknown) (unknown) (no value) (units (unk nown) date) unknown) (unknown) (no (unknown) (unknown) <Electronically (units (unknown) date) signed by Miguel unknown) MD Pascale> (unknown) (no (unknown) (unknown) 03/26/22 02:10 (units (unknown) date) unknown) (unknown) (no (unknown) (unknown) 03/26/22 0521 (units ( unknown) date) unknown) (unknown) (no (unknown) (unknown) 1 inh INHALATION (units (unknown) date) BID unknown) (unknown) (no (unknown) (unknown) 10 mg PO DAILY (units (unknown) date) unknown) (unknown) (no (unknown) (unknown) 100 mcg PO DAILY (units (unknown) date) unknown) (unknown) (no (unknown) (unknown) [address] [place] [address] (units (unknown) date) unknown) (unknown) (no (unknown) (unknown) 20 mg PO DAILY (units (unknown) date) unknown) (unknown) (no (unknown) (unknown) 3 ml INHALATION (units (unknown) date) Q6-8H PRN (Reason: unknown) shortness of breath or wheezing) Qty: 90 (unknown) (no (unknown) (unknown) 4 mg PO Q8H PRN (units (unknown) date) (Reason: nausea and unknown) vomiting) Qty: 7 1RF (unknown) (no (unknown) (unknown) 40 mg SUBCUT DAILY (units (unknown) date) Qty: 4 0RF unknown) (unknown) (no (unknown) (unknown) 5 mg PO DAILY (units ( unknown) date) unknown) (unknown) (no (unknown) (unknown) 5 mg PO Q12HR PRN (units (unknown) date) (Reason: muscle unknown) spasm) Qty: 10 0RF (unknown) (no (unknown) (unknown) 5 mg PO Q4H PRN (units (unknown) date) (Reason: pain) Qty: unknown) 42 0RF (unknown) (no (unknown) (unknown) 50 mg PO BID PRN (units (unknown) date) (Reason: pain) Qty: unknown) 0 (unknown) (no (unknown) (unknown) 75 mg PO DAILY (units (unknown) date) unknown) (unknown) (no (unknown) (unknown) Allergies (units (unkn own) date) unknown) (unknown) (no (unknown) (unknown) [place] [address] (unit s (unknown) date) unknown) (unknown) (no (unknown) (unknown) Documented By: DKB (units (unknown) date) unknown) (unknown) (no (unknown) (unknown) Documented By: TV (units (unknown) date) unknown) (unknown) (no (unknown) (unknown) ED Orders (units (unkn own) date) unknown) (unknown) (no (unknown) (unknown) Emergency Report (units (unknown) date) unknown) (unknown) (no (unknown) (unknown) Home Medications (units (unknown) date) unknown) (unknown) (no (unknown) (unknown) [facility] (units (unknown) date) unknown) (unknown) (no (unknown) (unknown) [facility] (units (unknown) date) [address] unknown) [place] [address] (unknown) (no (unknown) (unknown) Lab Results (units (un known) date) unknown) (unknown) (no (unknown) (unknown) Last Admin: (units (un known) date) 03/26/22 01:13 unknown) Dose: 3 ml (unknown) (no (unknown) (unknown) Last Admin: (units (un known) date) 03/26/22 01:14 unknown) Dose: 2.5 mg (unknown) (no (unknown) (unknown) Last Admin: (units (un known) date) 03/26/22 01:54 unknown) Dose: 125 mg (unknown) (no (unknown) (unknown) Last Admin: (units (un known) date) 03/26/22 03:48 unknown) Dose: 650 mg (unknown) (no (unknown) (unknown) Previous Rx's (units ( unknown) date) unknown) (unknown) (no (unknown) (unknown) Rx Instructions: (units (unknown) date) unknown) (unknown) (no (unknown) (unknown) Signed (units (unkno wn) date) unknown) (unknown) (no (unknown) (unknown) Stop: 03/26/22 (units (unknown) date) 01:05 unknown) (unknown) (no (unknown) (unknown) Stop: 03/26/22 (units (unknown) date) 01:44 unknown) (unknown) (no (unknown) (unknown) Stop: 03/26/22 (units (unknown) date) 03:44 unknown) (unknown) (no (unknown) (unknown) Vital Signs - 8 hr (units (unknown) date) unknown) (unknown) (no (unknown) (unknown) XRay Report (units (un known) date) unknown) (unknown) (no (unknown) (unknown) exempt postop (units ( unknown) date) unknown) (unknown) (no (unknown) (unknown) (no value) (units (unk nown) date) unknown) (unknown) (no (unknown) (unknown) 00:50 02:10 02:10 (units (unknown) date) unknown) (unknown) (no (unknown) (unknown) 02:10 02:10 (units (un known) date) unknown) (unknown) (no (unknown) (unknown) 03/26/22 03/26/22 (units (unknown) date) 03/26/22 Range/Units unknown) (unknown) (no (unknown) (unknown) 03/26/22 03/26/22 (units (unknown) date) Range/Units unknown) (unknown) (no (unknown) (unknown) cetirizine 5 mg (units (unknown) date) Tablet unknown) (unknown) (no (unknown) (unknown) diazepam [Valium] 5 (unit s (unknown) date) mg tablet unknown) (unknown) (no (unknown) (unknown) enoxaparin (units (unk nown) date) [Lovenox] 40 mg/0.4 unknown) mL syringe (unknown) (no (unknown) (unknown) esomeprazole (units (u nknown) date) magnesium [Nexium unknown) 24HR] 20 mg Capsule,Delayed Release(Dr/Ec) (unknown) (no (unknown) (unknown) fluticasone (units (un known) date) propion-salmeterol unknown) [Advair Diskus] 500-50 mcg/dose Blister With (unknown) (no (unknown) (unknown) ipratropium-albuter (unit s (unknown) date) ol 0.5 mg-3 mg(2.5 unknown) mg base)/3 mL solution for nebulization (unknown) (no (unknown) (unknown) levothyroxine 100 (units (unknown) date) mcg tablet unknown) (unknown) (no (unknown) (unknown) montelukast 10 mg (units (unknown) date) tablet unknown) (unknown) (no (unknown) (unknown) ondansetron HCl (units (unknown) date) [Zofran] 4 mg tablet unknown) (unknown) (no (unknown) (unknown) oxycodone 5 mg (units (unknown) date) tablet unknown) (unknown) (no (unknown) (unknown) tramadol 50 MG (units (unknown) date) tablet unknown) (unknown) (no (unknown) (unknown) venlafaxine 75 mg (units (unknown) date) capsule,extended unknown) release 24hr (unknown) (no (unknown) (unknown) 03/26/22 (units (unkno wn) date) unknown) (unknown) (no (unknown) (unknown) Acute bronchitis (units (unknown) date) due to Rhinovirus, unknown) Asthma exacerbation (unknown) (no (unknown) (unknown) Medication (units (unk nown) date) Instructions unknown) Recorded (unknown) (no (unknown) (unknown) Medication (units (unk nown) date) Instructions unknown) Recorded Confirmed (unknown) (no (unknown) (unknown) tabs (units (unkno wn) date) unknown) (unknown) (no (unknown) (unknown) #: [id number] (units ( unknown) date) unknown) (unknown) (no (unknown) (unknown) (2.5 mg base)/3 mL (units (unknown) date) nebulization unknown) shortness of breath or wheezing (unknown) (no (unknown) (unknown) (Zofran) vomiting (units (unknown) date) #7 tabs unknown) (unknown) (no (unknown) (unknown) 00:50 03/26/22 (units (unknown) date) unknown) (unknown) (no (unknown) (unknown) 01:15 03/26/22 (units (unknown) date) unknown) (unknown) (no (unknown) (unknown) 03:43 (units (unkno wn) date) unknown) (unknown) (no (unknown) (unknown) 03/26/22 00:50 (units (unknown) date) unknown) (unknown) (no (unknown) (unknown) 03/26/22 01:02 (units (unknown) date) unknown) (unknown) (no (unknown) (unknown) 03/26/22 01:33 (units (unknown) date) unknown) (unknown) (no (unknown) (unknown) 03/26/22 02:10 (units (unknown) date) unknown) (unknown) (no (unknown) (unknown) 0RF (units (unkno wn) date) unknown) (unknown) (no (unknown) (unknown) 1. Findings (units (un known) date) consistent with COPD unknown) redemonstrated without acute consolidation.? (unknown) (no (unknown) (unknown) 100.6 and Tylenol (units (unknown) date) ordered unknown) (unknown) (no (unknown) (unknown) 24HR) (units (unkno wn) date) unknown) (unknown) (no (unknown) (unknown) ? (units (unkno wn) date) unknown) (unknown) (no (unknown) (unknown) ALT (<35) IU/L (units (unknown) date) unknown) (unknown) (no (unknown) (unknown) ALT 25 (<35) (units (unknown) date) IU/L unknown) (unknown) (no (unknown) (unknown) AST (14-36) (units (unknown) date) IU/L unknown) (unknown) (no (unknown) (unknown) AST 25 (14-36) (units (unknown) date) IU/L unknown) (unknown) (no (unknown) (unknown) Accession Number: (units (unknown) date) [id number] ?? unknown) (unknown) (no (unknown) (unknown) Acct:[id number] (units (unknown) date) unknown) (unknown) (no (unknown) (unknown) Acetaminophen (units ( unknown) date) (Acetaminophen 325 unknown) Mg Tablet) 650 mg PO NOW ONE (unknown) (no (unknown) (unknown) Activity (units (unkno wn) date) Restrictions/Additio unknown) nal Instructions: (unknown) (no (unknown) (unknown) Adenovirus (PCR) (units (unknown) date) (Not Detect) unknown) (unknown) (no (unknown) (unknown) Adenovirus (PCR) (units (unknown) date) Not detected (Not unknown) Detect) (unknown) (no (unknown) (unknown) Age/Sex: 66 / F (units (unknown) date) unknown) (unknown) (no (unknown) (unknown) Age/Sex: 66 / F (units (unknown) date) unknown) (unknown) (no (unknown) (unknown) Albumin (units (unkno wn) date) (3.5-5.0) g/dL unknown) (unknown) (no (unknown) (unknown) Albumin 4.1 (units (unknown) date) (3.5-5.0) g/dL unknown) (unknown) (no (unknown) (unknown) Albumin/Globulin (units (unknown) date) Ratio (1.0-2.8) unknown) (unknown) (no (unknown) (unknown) Albumin/Globulin (units (unknown) date) Ratio 1.7 unknown) (1.0-2.8) (unknown) (no (unknown) (unknown) Albuterol (units (unkn own) date) (Albuterol 2.5 Mg/3 unknown) Ml Neb (Adult)) 2.5 mg INH NOW ONE (unknown) (no (unknown) (unknown) Albuterol/Ipratropi (unit s (unknown) date) um unknown) (Albuterol/Ipratropi um 3 Ml Ampul) 3 ml INH NOW ONE (unknown) (no (unknown) (unknown) Alkaline (units (unkno wn) date) Phosphatase unknown) (38-126) U/L (unknown) (no (unknown) (unknown) Alkaline (units (unkno wn) date) Phosphatase 90 unknown) (38-126) U/L (unknown) (no (unknown) (unknown) Allergy/AdvReac (units (unknown) date) Type Severity unknown) Reaction Status Date / Time (unknown) (no (unknown) (unknown) Appropriate for (units (unknown) date) discharge home. unknown) Patient already has steroid pack as well as (unknown) (no (unknown) (unknown) Approved by: Rory (unit s (unknown) date) Juanis Dillon M.D. on unknown) 03/26/2022 at 2:47 ? (unknown) (no (unknown) (unknown) Asthma (units (unkno wn) date) unknown) (unknown) (no (unknown) (unknown) B. pertussis DNA (units (unknown) date) (PCR) (Not unknown) Detecte) (unknown) (no (unknown) (unknown) B. pertussis DNA (units (unknown) date) (PCR) Not detected unknown) (Not Detecte) (unknown) (no (unknown) (unknown) B.parapertussis DNA (unit s (unknown) date) PCR (Not unknown) Detecte) (unknown) (no (unknown) (unknown) B.parapertussis DNA (unit s (unknown) date) PCR Not detected unknown) (Not Detecte) (unknown) (no (unknown) (unknown) BACK: No flank (units (unknown) date) tenderness. unknown) (unknown) (no (unknown) (unknown) BUN (7-17) (units ( unknown) date) mg/dL unknown) (unknown) (no (unknown) (unknown) BUN 15 (7-17) (units (unknown) date) mg/dL unknown) (unknown) (no (unknown) (unknown) BUN/Creatinine (units (unknown) date) Ratio (6-22) unknown) (unknown) (no (unknown) (unknown) BUN/Creatinine (units (unknown) date) Ratio 18.8 unknown) (6-22) (unknown) (no (unknown) (unknown) Baso # (Auto) (units ( unknown) date) (0-100) /uL unknown) (unknown) (no (unknown) (unknown) Baso # (Auto) 0 (units (unknown) date) (0-100) /uL unknown) (unknown) (no (unknown) (unknown) Baso % (Auto) (units ( unknown) date) (0-2) % unknown) (unknown) (no (unknown) (unknown) Baso % (Auto) 0.4 (unit s (unknown) date) (0-2) % unknown) (unknown) (no (unknown) (unknown) Blood Pressure (units (unknown) date) 180/80 H 03/26/22 unknown) 00:50 (unknown) (no (unknown) (unknown) Blood Pressure (units (unknown) date) 180/80 H 128/58 L unknown) (unknown) (no (unknown) (unknown) Blood pressure (units (unknown) date) improved 128/58, 92% unknown) room air pulse 95. Temperature noted at (unknown) (no (unknown) (unknown) Bones and chest (units (unknown) date) wall:? No suspicious unknown) bony abnormalities.? Soft tissues appear (unknown) (no (unknown) (unknown) CARDIOVASCULAR: (units (unknown) date) Denies chest pain, unknown) palpitations (unknown) (no (unknown) (unknown) CARDIOVASCULAR: (units (unknown) date) Regular rate and unknown) rhythm without murmurs (unknown) (no (unknown) (unknown) CBC Auto Diff (units ( unknown) date) [Complete Blood unknown) Count AUTO DIFF] Stat (unknown) (no (unknown) (unknown) CHEST 2V, (units (unkn own) date) 06/06/2020, 14:48. unknown) (unknown) (no (unknown) (unknown) CMP [Comprehensive (units (unknown) date) Metabolic Panel] unknown) Stat (unknown) (no (unknown) (unknown) [facility]PAR[facility], [facility], XR unknown) CHEST 2V, 12/16/2018, 14:34.? [facility] (unknown) (no (unknown) (unknown) COVID19 -Nasal (units (unknown) date) RAPID/Pre-Proc Stat unknown) (unknown) (no (unknown) (unknown) Calcium (units (unkno wn) date) (8.4-10.2) mg/dL unknown) (unknown) (no (unknown) (unknown) Calcium 9.0 (units (unknown) date) (8.4-10.2) mg/dL unknown) (unknown) (no (unknown) (unknown) Carbon Dioxide (units (unknown) date) (22-32) mmol/L unknown) (unknown) (no (unknown) (unknown) Carbon Dioxide (units (unknown) date) 28 (22-32) mmol/L unknown) (unknown) (no (unknown) (unknown) Chest [XR chest 2V] (unit s (unknown) date) Stat unknown) (unknown) (no (unknown) (unknown) Chest x-ray: (units (u nknown) date) unknown) (unknown) (no (unknown) (unknown) Chief Complaint: (units (unknown) date) Shortness of unknown) Breath/Dyspnea (unknown) (no (unknown) (unknown) Chlamy pneumoniae (units (unknown) date) PCR (Not Detect) unknown) (unknown) (no (unknown) (unknown) Chlamy pneumoniae (units (unknown) date) PCR Not detected unknown) (Not Detect) (unknown) (no (unknown) (unknown) Chloride (units (unkno wn) date) (98-107) mmol/L unknown) (unknown) (no (unknown) (unknown) Chloride 106 (units (unknown) date) (98-107) mmol/L unknown) (unknown) (no (unknown) (unknown) Clinical (units (unkno wn) date) Impression: unknown) (unknown) (no (unknown) (unknown) Coronavirus 229E (units (unknown) date) (PCR) (Not unknown) Detect) (unknown) (no (unknown) (unknown) Coronavirus 229E (units (unknown) date) (PCR) Not detected unknown) (Not Detect) (unknown) (no (unknown) (unknown) Coronavirus HKU1 (units (unknown) date) (PCR) (Not unknown) Detect) (unknown) (no (unknown) (unknown) Coronavirus HKU1 (units (unknown) date) (PCR) Not detected unknown) (Not Detect) (unknown) (no (unknown) (unknown) Coronavirus NL63 (units (unknown) date) (PCR) (Not unknown) Detect) (unknown) (no (unknown) (unknown) Coronavirus NL63 (units (unknown) date) (PCR) Not detected unknown) (Not Detect) (unknown) (no (unknown) (unknown) Coronavirus OC43 (units (unknown) date) (PCR) (Not unknown) Detect) (unknown) (no (unknown) (unknown) Coronavirus OC43 (units (unknown) date) (PCR) Not detected unknown) (Not Detect) (unknown) (no (unknown) (unknown) Course (units (unkno wn) date) unknown) (unknown) (no (unknown) (unknown) Course Narrative: (units (unknown) date) unknown) (unknown) (no (unknown) (unknown) Creatinine (units (unk nown) date) (0.52-1.04) mg/dL unknown) (unknown) (no (unknown) (unknown) Creatinine 0.80 (units (unknown) date) (0.52-1.04) mg/dL unknown) (unknown) (no (unknown) (unknown) DDD (degenerative (units (unknown) date) disc disease) unknown) (unknown) (no (unknown) (unknown) DJD (degenerative (units (unknown) date) joint disease) unknown) (unknown) (no (unknown) (unknown) : 1955 (units (unknown) date) Acct:[id number] unknown) (unknown) (no (unknown) (unknown) : 1955 (units (unknown) date) unknown) (unknown) (no (unknown) (unknown) Date of Service: (units (unknown) date) 03/26/22 unknown) (unknown) (no (unknown) (unknown) Departure (units (unkn own) date) unknown) (unknown) (no (unknown) (unknown) Depression (units (unk nown) date) unknown) (unknown) (no (unknown) (unknown) Jen Ma PA-C (unit s (unknown) date) [Primary Care unknown) Provider] - (unknown) (no (unknown) (unknown) Device (units (unkno wn) date) unknown) (unknown) (no (unknown) (unknown) Dictated by: Rory (unit s (unknown) date) Juanis Dillon M.D. on unknown) 03/26/2022 at 2:46 ? ? (unknown) (no (unknown) (unknown) Differential (units (u nknown) date) Diagnosis unknown) (unknown) (no (unknown) (unknown) Differential (units (u nknown) date) diagnosis: Likely unknown) upper respiratory infection, viral infection, (unknown) (no (unknown) (unknown) Discharge Plan (units (unknown) date) unknown) (unknown) (no (unknown) (unknown) Discontinued (units (u nknown) date) Medications unknown) (unknown) (no (unknown) (unknown) ENT: Mucous (units (u nknown) date) membranes moist. unknown) (unknown) (no (unknown) (unknown) ER Physician: (units ( unknown) date) Miguel Ashraf MD unknown) (unknown) (no (unknown) (unknown) EXTREMITIES: No (units (unknown) date) gross deformities. unknown) (unknown) (no (unknown) (unknown) EYES: Pupils equal (units (unknown) date) round No scleral unknown) icterus. (unknown) (no (unknown) (unknown) Entero/Rhino (PCR) (units (unknown) date) (Not Detect) unknown) (unknown) (no (unknown) (unknown) Entero/Rhino (PCR) (units (unknown) date) Detected H (Not unknown) Detect) (unknown) (no (unknown) (unknown) Eos # (Auto) (units (u nknown) date) (0-450) /uL unknown) (unknown) (no (unknown) (unknown) Eos # (Auto) 0 (units (unknown) date) (0-450) /uL unknown) (unknown) (no (unknown) (unknown) Eos % (Auto) (units (u nknown) date) (2-4) % unknown) (unknown) (no (unknown) (unknown) Eos % (Auto) 0.1 (units (unknown) date) L (2-4) % unknown) (unknown) (no (unknown) (unknown) Estimated GFR > (units (unknown) date) 60 (>60) mL/min unknown) (unknown) (no (unknown) (unknown) Estimated GFR (units ( unknown) date) (>60) mL/min unknown) (unknown) (no (unknown) (unknown) Exam (units (unkno wn) date) unknown) (unknown) (no (unknown) (unknown) Exam Narrative: (units (unknown) date) unknown) (unknown) (no (unknown) (unknown) FINDINGS:? (units (unk nown) date) unknown) (unknown) (no (unknown) (unknown) GASTROINTESTINAL: (units (unknown) date) Abdomen soft, unknown) non-tender (unknown) (no (unknown) (unknown) GASTROINTESTINAL: (units (unknown) date) Denies nausea, unknown) vomiting, abdominal pain (unknown) (no (unknown) (unknown) GENERAL: Positive (units (unknown) date) for chills, fatigue, unknown) malaise, fever, sweats. (unknown) (no (unknown) (unknown) GENERAL: in no (units (unknown) date) distress, not toxic unknown) not dyspneic (unknown) (no (unknown) (unknown) : Denies dysuria, (unit s (unknown) date) frequency, hematuria unknown) (unknown) (no (unknown) (unknown) General (units (unkno wn) date) unknown) (unknown) (no (unknown) (unknown) GenericComposite[Pl (unit s (unknown) date) t Count (150-400) unknown) X10^3/uL ] (unknown) (no (unknown) (unknown) GenericComposite[Pl (unit s (unknown) date) t Count 301 unknown) (150-400) X10^3/uL ] (unknown) (no (unknown) (unknown) GenericComposite[RB (unit s (unknown) date) C (4.0-5.2) unknown) X10^6/uL ] (unknown) (no (unknown) (unknown) GenericComposite[RB (unit s (unknown) date) C 4.10 (4.0-5.2) unknown) X10^6/uL ] (unknown) (no (unknown) (unknown) GenericComposite[WB (unit s (unknown) date) C (4.5-11.0) unknown) X10^3/uL ] (unknown) (no (unknown) (unknown) GenericComposite[WB (unit s (unknown) date) C 11.5 H unknown) (4.5-11.0) X10^3/uL ] (unknown) (no (unknown) (unknown) Globulin (units (unkno wn) date) (1.7-4.1) g/dL unknown) (unknown) (no (unknown) (unknown) Globulin 2.4 (units (unknown) date) (1.7-4.1) g/dL unknown) (unknown) (no (unknown) (unknown) Glucose (80-110) (unit s (unknown) date) mg/dL unknown) (unknown) (no (unknown) (unknown) Glucose 170 H (units (unknown) date) (80-110) mg/dL unknown) (unknown) (no (unknown) (unknown) HEAD: (units (unkno wn) date) Normocephalic. unknown) (unknown) (no (unknown) (unknown) HEENT: Denies sinus (unit s (unknown) date) pain, ear pain, sore unknown) throat (unknown) (no (unknown) (unknown) HPI - URI/Sore (units (unknown) date) Throat unknown) (unknown) (no (unknown) (unknown) HPI Narrative: (units (unknown) date) unknown) (unknown) (no (unknown) (unknown) Hct (36-46) % (units (unknown) date) unknown) (unknown) (no (unknown) (unknown) Hct 37.5 (units (unk nown) date) (36-46) % unknown) (unknown) (no (unknown) (unknown) Hgb (12.0-16.0) (units (unknown) date) g/dL unknown) (unknown) (no (unknown) (unknown) Hgb 12.4 (units (unk nown) date) (12.0-16.0) g/dL unknown) (unknown) (no (unknown) (unknown) History of Present (units (unknown) date) Illness unknown) (unknown) (no (unknown) (unknown) History of (units (unk nown) date) bilateral breast unknown) implants (1988) (unknown) (no (unknown) (unknown) History of (units (unk nown) date) hypothyroidism unknown) (unknown) (no (unknown) (unknown) History of surgery (units (unknown) date) (04/2014) unknown) (unknown) (no (unknown) (unknown) History of (units (unk nown) date) tonsillectomy and unknown) adenoidectomy (unknown) (no (unknown) (unknown) History of total (units (unknown) date) abdominal unknown) hysterectomy (unknown) (no (unknown) (unknown) Hospital, CR, XR (units (unknown) date) unknown) (unknown) (no (unknown) (unknown) Human Metapneumovir (unit s (unknown) date) PCR (Not Detect) unknown) (unknown) (no (unknown) (unknown) Human Metapneumovir (unit s (unknown) date) PCR Not detected unknown) (Not Detect) (unknown) (no (unknown) (unknown) Hx of appendectomy (units (unknown) date) (1978) unknown) (unknown) (no (unknown) (unknown) Hx of elbow surgery (unit s (unknown) date) unknown) (unknown) (no (unknown) (unknown) Hyperlipidemia (units (unknown) date) unknown) (unknown) (no (unknown) (unknown) IMPRESSION:? (units (u nknown) date) unknown) (unknown) (no (unknown) (unknown) INDICATIONS:? short (unit s (unknown) date) of breath unknown) (unknown) (no (unknown) (unknown) Imaging Data (units (u nknown) date) unknown) (unknown) (no (unknown) (unknown) Influenza Type A (units (unknown) date) (PCR) (Not unknown) Detect) (unknown) (no (unknown) (unknown) Influenza Type A (units (unknown) date) (PCR) Not detected unknown) (Not Detect) (unknown) (no (unknown) (unknown) Influenza Type B (units (unknown) date) (PCR) (Not unknown) Detect) (unknown) (no (unknown) (unknown) Influenza Type B (units (unknown) date) (PCR) Not detected unknown) (Not Detect) (unknown) (no (unknown) (unknown) Inhibitor (units (unkn own) date) unknown) (unknown) (no (unknown) (unknown) Inhibitor] (units (unk nown) date) unknown) (unknown) (no (unknown) (unknown) Initial Vital Signs (unit s (unknown) date) unknown) (unknown) (no (unknown) (unknown) Initial Vital (units ( unknown) date) Signs: unknown) (unknown) (no (unknown) (unknown) Instructions: (units ( unknown) date) Acute Bronchitis, DI unknown) for Asthma -- Adult, DI for Viral Upper (unknown) (no (unknown) (unknown) Lab Data (units (unkno wn) date) unknown) (unknown) (no (unknown) (unknown) Labs: (units (unkno wn) date) unknown) (unknown) (no (unknown) (unknown) Lactate (units (unkno wn) date) (0.7-2.1) mmol/L unknown) (unknown) (no (unknown) (unknown) Lactate 2.9 H (units (unknown) date) (0.7-2.1) mmol/L unknown) (unknown) (no (unknown) (unknown) Lactate (Lactic (units (unknown) date) Acid) Stat unknown) (unknown) (no (unknown) (unknown) Loc: ED (units (unkno wn) date) unknown) (unknown) (no (unknown) (unknown) Lungs and pleura:? (units (unknown) date) There is unknown) hyperinflation of the lungs with flattening of the (unknown) (no (unknown) (unknown) Lymph # (Auto) (units (unknown) date) (7047-0403) /uL unknown) (unknown) (no (unknown) (unknown) Lymph # (Auto) (units (unknown) date) 1500 (1013-2183) unknown) /uL (unknown) (no (unknown) (unknown) Lymph % (Auto) (units (unknown) date) (25-40) % unknown) (unknown) (no (unknown) (unknown) Lymph % (Auto) (units (unknown) date) 12.9 L (25-40) % unknown) (unknown) (no (unknown) (unknown) M. pneumoniae (PCR) (unit s (unknown) date) (Not Detect) unknown) (unknown) (no (unknown) (unknown) M. pneumoniae (PCR) (unit s (unknown) date) Not detected (Not unknown) Detect) (unknown) (no (unknown) (unknown) MCH (26-34) PG (units (unknown) date) unknown) (unknown) (no (unknown) (unknown) MCH 30.4 (units (unk nown) date) (26-34) PG unknown) (unknown) (no (unknown) (unknown) MCHC (30-36) % (units (unknown) date) unknown) (unknown) (no (unknown) (unknown) MCHC 33.2 (units (un known) date) (30-36) % unknown) (unknown) (no (unknown) (unknown) MCV (80-100) fL (unit s (unknown) date) unknown) (unknown) (no (unknown) (unknown) MCV 91.6 (units (unk nown) date) (80-100) fL unknown) (unknown) (no (unknown) (unknown) MDM - URI/Sore (units (unknown) date) Throat unknown) (unknown) (no (unknown) (unknown) MDM Narrative (units ( unknown) date) unknown) (unknown) (no (unknown) (unknown) MR#: [id number] (units (unknown) date) unknown) (unknown) (no (unknown) (unknown) MUSCULOSKELETAL: (units (unknown) date) denies muscle or unknown) bony pain (unknown) (no (unknown) (unknown) Mediastinum:? (units ( unknown) date) Mediastinal contours unknown) are normal.? Heart size is normal.? (unknown) (no (unknown) (unknown) Medical History (units (unknown) date) (Reviewed 03/26/22 @ unknown) 01:47 by Miguel Ashraf MD) (unknown) (no (unknown) (unknown) Medical decision (units (unknown) date) making narrative: unknown) (unknown) (no (unknown) (unknown) Methylprednisolone (units (unknown) date) (Methylprednisolone unknown) 125 Mg/2 Ml Vial) 125 mg IV NOW ONE (unknown) (no (unknown) (unknown) Mode of arrival: (units (unknown) date) Ambulatory unknown) (unknown) (no (unknown) (unknown) [place] # (Auto) (units ( unknown) date) (0-900) /uL unknown) (unknown) (no (unknown) (unknown) [place] # (Auto) 900 (unit s (unknown) date) (0-900) /uL unknown) (unknown) (no (unknown) (unknown) [place] % (Auto) (units ( unknown) date) (3-14) % unknown) (unknown) (no (unknown) (unknown) [place] % (Auto) 8.1 (unit s (unknown) date) (3-14) % unknown) (unknown) (no (unknown) (unknown) NECK: Trachea (units ( unknown) date) midline. unknown) (unknown) (no (unknown) (unknown) NEURO: AOx4. (units (u nknown) date) unknown) (unknown) (no (unknown) (unknown) NEUROLOGIC: Denies (units (unknown) date) weakness, numbness unknown) (unknown) (no (unknown) (unknown) Narrative (units (unkn own) date) unknown) (unknown) (no (unknown) (unknown) Narrative: (units (unk nown) date) unknown) (unknown) (no (unknown) (unknown) Neut # (Auto) (units ( unknown) date) (5253-2290) /uL unknown) (unknown) (no (unknown) (unknown) Neut # (Auto) (units ( unknown) date) 9000 H (8001-2643) unknown) /uL (unknown) (no (unknown) (unknown) Neut % (Auto) (units ( unknown) date) (50-75) % unknown) (unknown) (no (unknown) (unknown) Neut % (Auto) (units ( unknown) date) 78.5 H (50-75) % unknown) (unknown) (no (unknown) (unknown) No Action (units (unkn own) date) unknown) (unknown) (no (unknown) (unknown) No new issues (units ( unknown) date) during course of unknown) stay (unknown) (no (unknown) (unknown) No pertinent past (units (unknown) date) surgical history unknown) (unknown) (no (unknown) (unknown) Ordered: (units (unkno wn) date) unknown) (unknown) (no (unknown) (unknown) Ordering Provider: (units (unknown) date) Miguel Ashraf MD unknown) (unknown) (no (unknown) (unknown) Orders (units (unkno wn) date) unknown) (unknown) (no (unknown) (unknown) Oxygen Delivery (units (unknown) date) Method 03/26/22 unknown) 00:50 (unknown) (no (unknown) (unknown) Oxygen Delivery (units (unknown) date) Method Room Air Room unknown) Air Room Air (unknown) (no (unknown) (unknown) Oxygen Flow Rate 0 (unit s (unknown) date) unknown) (unknown) (no (unknown) (unknown) PROCEDURE:? XR (units (unknown) date) CHEST 2V unknown) (unknown) (no (unknown) (unknown) PSYCH: Not (units (un known) date) anxious, is unknown) cooperative (unknown) (no (unknown) (unknown) Parainfluenza 1 (units (unknown) date) (PCR) (Not unknown) Detect) (unknown) (no (unknown) (unknown) Parainfluenza 1 (units (unknown) date) (PCR) Not detected unknown) (Not Detect) (unknown) (no (unknown) (unknown) Parainfluenza 2 (units (unknown) date) (PCR) (Not unknown) Detect) (unknown) (no (unknown) (unknown) Parainfluenza 2 (units (unknown) date) (PCR) Not detected unknown) (Not Detect) (unknown) (no (unknown) (unknown) Parainfluenza 3 (units (unknown) date) (PCR) (Not unknown) Detect) (unknown) (no (unknown) (unknown) Parainfluenza 3 (units (unknown) date) (PCR) Not detected unknown) (Not Detect) (unknown) (no (unknown) (unknown) Parainfluenza 4 (units (unknown) date) (PCR) (Not unknown) Detect) (unknown) (no (unknown) (unknown) Parainfluenza 4 (units (unknown) date) (PCR) Not detected unknown) (Not Detect) (unknown) (no (unknown) (unknown) Patient (units (unkno wn) date) Disposition: Home unknown) (unknown) (no (unknown) (unknown) Patient History (units (unknown) date) unknown) (unknown) (no (unknown) (unknown) Patient here with (units (unknown) date) . Complaints unknown) fever chills cough and wheezing. Feeling (unknown) (no (unknown) (unknown) Patient sleeping. (units (unknown) date) Awoke to review unknown) results with her and . Patient feels (unknown) (no (unknown) (unknown) Patient: (units (unkno wn) date) Milagro Clifton unknown) E MR (unknown) (no (unknown) (unknown) Patient: (units (unkno wn) date) Milagro Clifton unknown) E (unknown) (no (unknown) (unknown) Potassium (units (unkn own) date) (3.4-5.1) mmol/L unknown) (unknown) (no (unknown) (unknown) Potassium 3.5 (units (unknown) date) (3.4-5.1) mmol/L unknown) (unknown) (no (unknown) (unknown) Prescriptions: (units (unknown) date) unknown) (unknown) (no (unknown) (unknown) Procalcitonin (units ( unknown) date) (<0.5) ng/mL unknown) (unknown) (no (unknown) (unknown) Procalcitonin (units ( unknown) date) 0.06 (<0.5) ng/mL unknown) (unknown) (no (unknown) (unknown) Procalcitonin Stat (units (unknown) date) unknown) (unknown) (no (unknown) (unknown) Procedure: XR chest (unit s (unknown) date) 2V unknown) (unknown) (no (unknown) (unknown) Psoriasis (units (unkn own) date) unknown) (unknown) (no (unknown) (unknown) Pulse Oximetry 95 (units (unknown) date) 03/26/22 00:50 unknown) (unknown) (no (unknown) (unknown) Pulse Oximetry 95 (units (unknown) date) 96 92 unknown) (unknown) (no (unknown) (unknown) Pulse Rate 94 H (units (unknown) date) 03/26/22 00:50 unknown) (unknown) (no (unknown) (unknown) Pulse Rate 94 H 95 (unit s (unknown) date) H unknown) (unknown) (no (unknown) (unknown) RDW (11.6-14.8) (units (unknown) date) % unknown) (unknown) (no (unknown) (unknown) RDW 13.4 (units (unk nown) date) (11.6-14.8) % unknown) (unknown) (no (unknown) (unknown) RESPIRATORY: (units (u nknown) date) Positive for unknown) dyspnea, cough (unknown) (no (unknown) (unknown) RESPIRATORY: (units (u nknown) date) Speaking full unknown) sentences. In no distress. There is coarse (unknown) (no (unknown) (unknown) ROS Unobtainable: (units (unknown) date) All systems reviewed unknown) + are unremarkable except as noted in HPI (unknown) (no (unknown) (unknown) RSV (PCR) (Not (units (unknown) date) Detect) unknown) (unknown) (no (unknown) (unknown) RSV (PCR) Not (units (unknown) date) detected (Not unknown) Detect) (unknown) (no (unknown) (unknown) RT Consult Eval and (unit s (unknown) date) Treat NOW unknown) (unknown) (no (unknown) (unknown) Reevaluation #1: (units (unknown) date) unknown) (unknown) (no (unknown) (unknown) Reevaluation(s) (units (unknown) date) unknown) (unknown) (no (unknown) (unknown) Referrals: (units (unk nown) date) unknown) (unknown) (no (unknown) (unknown) Related Data (units (u nknown) date) unknown) (unknown) (no (unknown) (unknown) Respiratory (units (un known) date) Infection -- Adult unknown) (unknown) (no (unknown) (unknown) Respiratory Panel (units (unknown) date) (Film Array) Stat unknown) (unknown) (no (unknown) (unknown) Respiratory Rate (units (unknown) date) 23 03/26/22 00:50 unknown) (unknown) (no (unknown) (unknown) Respiratory Rate 23 (unit s (unknown) date) unknown) (unknown) (no (unknown) (unknown) Result diagrams: (units (unknown) date) unknown) (unknown) (no (unknown) (unknown) Review of Systems (units (unknown) date) unknown) (unknown) (no (unknown) (unknown) SARS-CoV-2 (PCR) (units (unknown) date) Not detected unknown) (Negative) (unknown) (no (unknown) (unknown) SARS-CoV-2 (PCR) (units (unknown) date) Negative unknown) (Negative) (unknown) (no (unknown) (unknown) SKIN: Warm and dry (unit s (unknown) date) unknown) (unknown) (no (unknown) (unknown) SKIN: Denies rash, (units (unknown) date) skin lesions unknown) (unknown) (no (unknown) (unknown) She is currently (units (unknown) date) taking prednisone unknown) tapered regimen (unknown) (no (unknown) (unknown) Signed By: (units (unk nown) date) unknown) (unknown) (no (unknown) (unknown) Sinusitis (units (unkn own) date) unknown) (unknown) (no (unknown) (unknown) Smoking Status: (units (unknown) date) Current every day unknown) smoker (unknown) (no (unknown) (unknown) Smoking Status: (units (unknown) date) Current every day unknown) smoker (unknown) (no (unknown) (unknown) Social History (units (unknown) date) (Reviewed 03/26/22 @ unknown) 01:47 by Miguel Ashraf MD) (unknown) (no (unknown) (unknown) Sodium (137-145) (unit s (unknown) date) mmol/L unknown) (unknown) (no (unknown) (unknown) Sodium 139 (units ( unknown) date) (137-145) mmol/L unknown) (unknown) (no (unknown) (unknown) Solu-Medrol here. (units (unknown) date) Return precautions unknown) reviewed with patient. She desires (unknown) (no (unknown) (unknown) Source: patient (units (unknown) date) unknown) (unknown) (no (unknown) (unknown) Stand Alone Forms: (units (unknown) date) Work Release Note unknown) (unknown) (no (unknown) (unknown) Stated Complaint: (units (unknown) date) BAD ASTHMA HARD TO unknown) BREATH (unknown) (no (unknown) (unknown) [id number] (units (unknown) date) Reductase AdvReac unknown) Mild Muscle Pain Verified 10/04/20 06:45 (unknown) (no (unknown) (unknown) Stop smoking. See (units (unknown) date) family doctor within unknown) a week for recheck. Continue home (unknown) (no (unknown) (unknown) Substance Use Type: (unit s (unknown) date) does not use unknown) (unknown) (no (unknown) (unknown) Surgical History (units (unknown) date) (Reviewed 03/26/22 @ unknown) 01:47 by Miguel Ashraf MD) (unknown) (no (unknown) (unknown) Surgical changes (units (unknown) date) and devices:? There unknown) are peripherally calcified breast implants (unknown) (no (unknown) (unknown) TECHNIQUE:? 2 views (unit s (unknown) date) of the chest were unknown) acquired.? (unknown) (no (unknown) (unknown) Temperature 99.8 F (unit s (unknown) date) H 03/26/22 00:50 unknown) (unknown) (no (unknown) (unknown) Temperature 99.8 F (units (unknown) date) H 100.6 F H unknown) (unknown) (no (unknown) (unknown) Time Seen by (units (u nknown) date) Provider: 03/26/22 unknown) 01:36 (unknown) (no (unknown) (unknown) Time: 03:39 (units (un known) date) unknown) (unknown) (no (unknown) (unknown) Total Bilirubin (units (unknown) date) (0.2-1.3) mg/dL unknown) (unknown) (no (unknown) (unknown) Total Bilirubin (units (unknown) date) 0.3 (0.2-1.3) unknown) mg/dL (unknown) (no (unknown) (unknown) Total Protein (units ( unknown) date) (6.3-8.2) g/dL unknown) (unknown) (no (unknown) (unknown) Total Protein (units ( unknown) date) 6.5 (6.3-8.2) g/dL unknown) (unknown) (no (unknown) (unknown) Visit Report Forms: (unit s (unknown) date) Patient Portal/API unknown) (unknown) (no (unknown) (unknown) Vital Signs (units (un known) date) unknown) (unknown) (no (unknown) (unknown) Vital signs: (units (u nknown) date) unknown) (unknown) (no (unknown) (unknown) [Embedded Image Not (unit s (unknown) date) Available] unknown) (unknown) (no (unknown) (unknown) [[id number]-[id number]-Dge (units (unknown) date) Reductase unknown) (unknown) (no (unknown) (unknown) alcohol intake (units (unknown) date) frequency: 0-2 unknown) drinks per day (unknown) (no (unknown) (unknown) alcohol intake: (units (unknown) date) current unknown) (unknown) (no (unknown) (unknown) and below (units (unkn own) date) unknown) (unknown) (no (unknown) (unknown) asthma. Is a (units (u nknown) date) smoker. History of unknown) diabetes. Recently had chest x-ray 2 days ago (unknown) (no (unknown) (unknown) at another (units (unk nown) date) hospital. Currently unknown) on prednisone pack. She does smoke. Patient (unknown) (no (unknown) (unknown) better after (units (u nknown) date) breathing treatment unknown) here nebulizer. Patient has history for (unknown) (no (unknown) (unknown) bilateral basilar (units (unknown) date) lung sounds. Has unknown) scant wheezing. (unknown) (no (unknown) (unknown) bronchitis, (units (un known) date) influenza and other unknown) (Pneumonia/asthma exacerbation) (unknown) (no (unknown) (unknown) capsule,delayed (units (unknown) date) release (Nexium unknown) (unknown) (no (unknown) (unknown) cetirizine 5 mg (units (unknown) date) tablet 5 mg PO DAILY unknown) 10/04/20 10/04/20 (unknown) (no (unknown) (unknown) codeine [CODEINE] (units (unknown) date) AdvReac Mild ITCHY unknown) Verified 10/04/20 06:45 (unknown) (no (unknown) (unknown) cough medication (units (unknown) date) and breathing unknown) treatments at home. Feels much better after (unknown) (no (unknown) (unknown) diazepam 5 mg (units ( unknown) date) tablet (Valium) 5 mg unknown) PO Q12HR PRN muscle spasm #10 09/15/20 (unknown) (no (unknown) (unknown) discharge home. (units (unknown) date) She does have a unknown) family doctor to follow up with. (unknown) (no (unknown) (unknown) effusions or (units (u nknown) date) unknown) (unknown) (no (unknown) (unknown) enoxaparin 40 (units ( unknown) date) mg/0.4 mL 40 mg (0.4 unknown) mL) SUBCUT DAILY #4 mL 01/08/21 (unknown) (no (unknown) (unknown) esomeprazole (units (u nknown) date) magnesium 20 mg 20 unknown) mg PO DAILY 10/04/20 10/04/20 (unknown) (no (unknown) (unknown) fluticasone 500 (units (unknown) date) mcg-salmeterol 50 1 unknown) inh inhalation BID 10/04/20 10/04/20 (unknown) (no (unknown) (unknown) has history of (units (unknown) date) recurrent pneumonia unknown) as well as bronchitis. Patient tested (unknown) (no (unknown) (unknown) hemidiaphragms (units (unknown) date) compatible with unknown) COPD.? No acute consolidation.? No pleural (unknown) (no (unknown) (unknown) household members: (units (unknown) date) spouse unknown) (unknown) (no (unknown) (unknown) inhalation (Advair (units (unknown) date) Diskus) unknown) (unknown) (no (unknown) (unknown) ipratropium 0.5 (units (unknown) date) mg-albuterol 3 mg 3 unknown) ml inhalation Q6-8H PRN 06/06/20 (unknown) (no (unknown) (unknown) levothyroxine 100 (units (unknown) date) mcg tablet 100 mcg unknown) PO DAILY 06/27/19 10/04/20 (unknown) (no (unknown) (unknown) mcg/dose blistr (units (unknown) date) powdr for unknown) (unknown) (no (unknown) (unknown) montelukast 10 mg (units (unknown) date) tablet 10 mg PO unknown) DAILY 06/27/19 10/04/20 (unknown) (no (unknown) (unknown) much better. She (units (unknown) date) does need a work unknown) note for today. She states she has breathing (unknown) (no (unknown) (unknown) ondansetron HCl 4 (units (unknown) date) mg tablet 4 mg PO unknown) Q8H PRN nausea and 10/04/20 (unknown) (no (unknown) (unknown) oxycodone 5 mg (units (unknown) date) tablet 5 mg PO Q4H unknown) PRN pain #42 tabs 10/04/20 (unknown) (no (unknown) (unknown) pneumothorax.? (units (unknown) date) unknown) (unknown) (no (unknown) (unknown) positive for (units (u nknown) date) parainfluenza 3 a unknown) few months ago. She is COVID vaccinated. (unknown) (no (unknown) (unknown) redemonstrated (units (unknown) date) bilaterally.? unknown) (unknown) (no (unknown) (unknown) release 24 hr (units ( unknown) date) unknown) (unknown) (no (unknown) (unknown) soln #90 mL (units (un known) date) unknown) (unknown) (no (unknown) (unknown) steroid pack. (units ( unknown) date) Continue home cough unknown) medication. Continue home breathing (unknown) (no (unknown) (unknown) subcutaneous (units (u nknown) date) syringe (Lovenox) unknown) (unknown) (no (unknown) (unknown) tramadol 50 mg (units (unknown) date) tablet 50 mg PO BID unknown) PRN pain ##0 09/19/17 10/04/20 (unknown) (no (unknown) (unknown) treatments at home (units (unknown) date) as well as cough unknown) medication. She desires discharge home. (unknown) (no (unknown) (unknown) treatments. Return (unit s (unknown) date) if worse if any unknown) questions or concerns. (unknown) (no (unknown) (unknown) unremarkable.? (units (unknown) date) unknown) (unknown) (no (unknown) (unknown) venlafaxine 75 mg (units (unknown) date) capsule,extended 75 unknown) mg PO DAILY 06/27/19 10/04/20 Social History date description facility (no date) Smokes tobacco daily (finding) [facility] Vital Signs date measurement value units [id number] BMI BMI 24.5 kg/m2 [id number] BP_diastolic BP_diastolic 58 mm[H g] [id number]+0000 BP_systolic BP_systolic 128 mm[Hg] [id number]+0000 heart_rate heart_rate 95 /min [id number] height_metric height_metric 172.72 cm [id number] height_standard height_standard 68 in [id number] respiration_rate respiration_rate 23 /min +0000 temperature_metric temperature_metric 38.11 C +0000 temperature_standard temperature_standard 1 00.6 F +0000 weight_metric weight_metric 73.02 kg +0000 weight_standard weight_standard 160.98 lb
[2022-04-29] MEDS ORDERED: NIRMATRELVIR/RITONAVIR PREPACK PO STA (10:58)
--- NOTE | 2022-04-29 11:01 | ED Physician Documentation ---
PD HPI URI - Stated complaint Stated Complaint: C+ FEVER/COUGH/SOA - Chief complaint Chief Complaint: Resp - History obtained from History obtained from: Patient - History of Present Illness Timing - onset: How many days ago (2) - Additional information Additional information: 66-year-old female with history of asthma, hypertension, hyperlipidemia presents requesting a paxlovid prescription. Patient reports 2 days of fever, malaise, nonproductive cough. Patient states that she recently recovered from an asthma exacerbation she is currently taking prednisone. Denies other complaints at this time. Review of Systems Ten Systems: 10 systems reviewed and negative Constitutional: reports: Fever, Chills Eyes: denies: Loss of vision, Decreased vision, Photophobia Ears: denies: Loss of hearing, Ear pain, Drainage/discharge Nose: denies: Rhinorrhea / runny nose, Congestion, Foreign Body Throat: reports: Sore throat. denies: Dental pain / toothache, Oral lesions / sores Cardiac: denies: Chest pain / pressure, Palpitations Respiratory: reports: Cough, Wheezing. denies: Dyspnea GI: denies: Abdominal Pain, Abdominal Swelling, Nausea, Vomiting, Constipation, Diarrhea : denies: Dysuria, Frequency PD PAST MEDICAL HISTORY - Past Medical History Cardiovascular: High cholesterol Respiratory: Asthma Neuro: None Psych: None Musculoskeletal: Osteoarthritis, Rheumatoid arthritis, Chronic back pain - Past Surgical History Past Surgical History: Yes /[employer]: Hysterectomy - Present Medications Home Medications: Ambulatory Orders Medication Instructions Recorded Confirmed Levothyroxine Sodium 100 mcg PO DAILY 10/30/17 02/03/21 Venlafaxine [Effexor] 150 mg PO DAILY 10/30/17 10/30/17 estradioL [Estradiol] 2 mg PO DAILY 10/30/17 02/03/21 predniSONE [Prednisone] 80 mg PO PRN PRN 10/30/17 02/03/21 Methotrexate [Methotrexate Sodium] 8 mg PO BID 02/03/21 02/03/21 traMADol [Ultram] 50 mg PO PRN PRN 02/03/21 02/03/21 Amoxicillin 500 mg PO TID #18 cap 12/22/21 Benzonatate [Tessalon] 100 mg PO TID PRN #20 cap 12/22/21 - Allergies Allergies/Adverse Reactions: Allergies Allergy/AdvReac Type Severity Reaction Status Date / Time codeine AdvReac Itching Verified 04/29/22 10:41 dupilumab [From Dupixent Pen] AdvReac Rash Verified 04/29/22 10:41 - Social History Does the pt smoke?: Yes Smoking Status: Current every day smoker Does the pt drink ETOH?: No Does the pt have substance abuse?: No - Immunizations Immunizations are current?: Yes - POLST Patient has POLST: No PD ED PE NORMAL - Vitals Vital signs reviewed: Yes - General General: Alert and oriented X 3, No acute distress, Well developed/nourished - HEENT HEENT: Atraumatic, PERRL, EOMI, Ears normal, Moist mucous membranes, Pharynx benign - Neck Neck: Supple, no meningeal sign, No bony TTP, No JVD - Cardiac Cardiac: RRR, No murmur, Strong equal pulses - Respiratory Respiratory: No respiratory distress, Other (mild faint expiratory wheezing) - Abdomen Abdomen: Soft, Non tender, Non distended - Back Back: No CVA TTP, No spinal TTP - Derm Derm: Normal color, No rash - Extremities Extremities: No deformity, No tenderness to palpate, Normal ROM s pain - Neuro Neuro: Alert and oriented X 3, 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 Patient declines any other work-up, she states that she has all of her prescriptions at home for her asthma recovery. Reviewed all medications that could be contraindicated with the antiviral medication, she was counseled to decrease her steroid dose by half while taking the antiviral medication. Patient discharged home in stable condition. Departure - Departure Disposition: 01 Home, Self Care Clinical Impression: COVID Condition: Stable Instructions: ED Viral Syndrome Comments: If you use steroids for your asthma flareups reduce the dose by half while you are taking PAXLOVID Discharge Date/Time: 04/29/22 11:06
== END 2022-04-29 11:06 | disposition home or self-care (01) ==
LOC: ED 10:28
DX: U07.1 COVID-19 (principal); F17.200 Nicotine dependence, unspecified, uncomplicated
CPT/HCPCS: 99282; J3490

== ENCOUNTER 2023-05-10 10:49 | Emergency (ER) | payer MEDICARE, BC ==
[2023-05-10] MEDS ORDERED: IPRATROPIUM/ALBUTEROL 3 ML NEB INH STA (11:19)
--- OUTSIDE RECORDS SUMMARY | 2023-05-10 13:03 | EXTERNAL MEDICAL SUMMARY RPT | Continuity of Care Document ---
Author Name Unknown Address [address] [phone] Phone Organization [facility] Address [address] [place] [address] Phone Problems date description facility 2023-03-05 12:42 Encounter for other screening for malignant neoplasm of [facility] 2023-03-05 12:42 Asymptomatic menopausal state I merged with [facility] Results/Labs test date facility value unit notes
--- NOTE | 2023-05-10 13:24 | XRAY Report ---
PROCEDURE: Chest 1 View X-Ray INDICATIONS: cough TECHNIQUE: One view of the chest was acquired. COMPARISON: Chest radiographs 03/23/2022 FINDINGS: Surgical changes and devices: Bilateral breast implants as before. Lungs and pleura: No pleural effusions or pneumothorax. Lungs are clear. Mediastinum: Mediastinal contours appear normal. Heart size is normal. Bones and chest wall: No suspicious bony lesions. Overlying soft tissues appear unremarkable. IMPRESSION: No acute cardiopulmonary process. Reviewed by: Kenrick Hager MD on 05/10/2023 1:22 PM PDT Approved by: Kenrick Hager MD on 05/10/2023 1:22 PM PDT Station ID: [id number]
[2023-05-10 13:50] VITALS: BP 131/71; O2SAT 95
[2023-05-10] MEDS ORDERED: ALBUTEROL NEB 2.5 MG/3 ML INH STA (14:09)
[2023-05-10] MEDS ORDERED: predniSONE 20 MG TABLET PO STA (14:09)
--- NOTE | 2023-05-10 14:11 | ED Physician Documentation ---
PD HPI URI - Stated complaint Stated Complaint: SOA,WHEEZING - Chief complaint Chief Complaint: Resp - History obtained from History obtained from: Patient - History of Present Illness Timing - onset: How many days ago (3) Timing duration: Days (3) Timing details: Gradual onset Associated symptoms: Nasal congestion, Rhinorrhea, Dry cough, Dyspnea. No: Fever, Chills Contributing factors: COPD / asthma Recently seen: Not recently seen - Additional information Additional information: 67-year-old female presents to the emergency department with cough, congestion, wheezing over the past 3 days. History of asthma. She does smoke as well. No fevers. No chills. Has been mostly dry cough. She states she usually gets antibiotics, steroids and uses her nebulizer at home. 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 - Present Medications Home Medications: Ambulatory Orders Medication Instructions Recorded Confirmed Levothyroxine Sodium 110 mcg PO DAILY 10/30/17 05/10/23 Venlafaxine [Effexor] 225 mg PO DAILY 10/30/17 05/10/23 Albuterol 2.5 mg INH PRN PRN 05/10/23 05/10/23 Apremilast [Otezla] 30 mg PO DAILY 05/10/23 05/10/23 Chlorthalidone 12.5 mg PO DAILY 05/10/23 05/10/23 Doxycycline Monohydrate 100 mg PO BID #20 cap 05/10/23 Fluticasone Propion/Salmeterol 1 inh INH BID 05/10/23 05/10/23 [Wixela 500-50 Inhub] Leflunomide [Arava] 20 mg PO DAILY 05/10/23 05/10/23 Metoprolol Tartrate [Lopressor] 12.5 mg PO DAILY 05/10/23 05/10/23 Rosuvastatin Calcium [Crestor] 20 mg PO DAILY 05/10/23 05/10/23 Temazepam [Restoril] 30 mg PO PRN PRN 05/10/23 05/10/23 Tiotropium [place] [Spiriva 18 mcg INH DAILY 05/10/23 05/10/23 Handihaler] metFORMIN [Glucophage] 1,000 mg PO BID 05/10/23 05/10/23 predniSONE [Deltasone] 10 mg PO [id number] #42 tab 05/10/23 - Allergies Allergies/Adverse Reactions: Allergies Allergy/AdvReac Type Severity Reaction Status Date / Time codeine AdvReac Itching Verified 05/10/23 11:03 dupilumab [From Dupixent Pen] AdvReac Rash Verified 05/10/23 11:03 - Social History Does the pt smoke?: Yes Smoking Status: Current every day smoker Does the pt drink ETOH?: No Does the pt have substance abuse?: No - Immunizations Immunizations are current?: Yes - POLST Patient has POLST: No PD ED PE NORMAL - Vitals Vital signs reviewed: Yes - General General: Alert and oriented X 3, No acute distress - HEENT HEENT: Moist mucous membranes - Neck Neck: Supple, no meningeal sign - Cardiac Cardiac: RRR - Respiratory Respiratory: Other (Diffuse wheezing bilaterally, no distress) - Abdomen Abdomen: Soft, Non tender, Non distended - Derm Derm: Warm and dry - Extremities Extremities: No edema, No calf tenderness / cord - Neuro Neuro: Alert and oriented X 3 - Psych Psych: Normal mood, Normal affect Results - Vitals Vitals: Vital Signs - 24 hr 05/10/23 05/10/23 05/10/23 10:58 11:33 13:43 Temperature 35.8 C L Heart Rate 80 78 71 Respiratory 22 18 20 Rate Blood Pressure 137/72 H 131/71 H O2 Saturation 100 95 Oxygen O2 Source Room air - Labs Labs: Laboratory Tests 05/10/23 11:25 SARS-CoV-2 (PCR) NOT DETECTED - Rads (name of study) cxr Relevant Findings:: Final report received, See rad report PD Medical Decision Making - ED course Complexity details: reviewed results, re-evaluated patient, considered differential, d/w patient, d/w family ED course: Patient is well-appearing, nontoxic. Afebrile. No hypoxia. No respiratory distress. Feels better after nebulizer treatments and steroids. We will place her on steroids, doxycycline and have her use her nebulizers at home. COVID test is negative. No evidence of pneumonia on chest x-ray. Patient does still smoke, likely has COPD as well as asthma. Patient counseled regarding signs and symptoms for which I believe and urgent re-evaluation would be necessary. Patient with good understanding of and agreement to plan and is comfortable going home at this time This document was made in part using voice recognition software. While efforts are made to proofread this document, sound alike and grammatical errors may occur. Departure - Departure Disposition: Home, Self Care Clinical Impression: Asthma Qualifiers: Asthma severity: unspecified severity Asthma persistence: unspecified Asthma complication type: with acute exacerbation Qualified Code(s): J45.901 - Unspecified asthma with (acute) exacerbation URI (upper respiratory infection) Qualifiers: URI type: unspecified viral URI Qualified Code(s): J06.9 - Acute upper respiratory infection, unspecified Condition: Good Instructions: ED URI Viral Follow-Up: MARILU WITT PA-C [Primary Care Provider] - Within 1 week Prescriptions: predniSONE [Deltasone] 10 mg PO [id number] #42 tab Doxycycline Monohydrate 100 mg PO BID #20 cap Comments: Your prescriptions were sent to [facility] in [place]. Please take all antibiotics until gone. You can use your nebulizer at home. We have prescribed you prednisone as well. Please return if you worsen. Your chest x-ray does not show any pneumonia. Forms: PCP List Discharge Date/Time: 05/10/23 14:49
== END 2023-05-10 14:49 | disposition home or self-care (01) ==
LOC: ED 10:49
DX: J45.901 Unspecified asthma with (acute) exacerbation (principal); F17.200 Nicotine dependence, unspecified, uncomplicated; Z79.899 Other long term (current) drug therapy; Z79.51 Long term (current) use of inhaled steroids; Z79.84 Long term (current) use of oral hypoglycemic drugs; E78.00 Pure hypercholesterolemia, unspecified
CPT/HCPCS: 94640; 94664; 99283

== ENCOUNTER 2024-01-21 08:00 | Outpatient (CLI) | payer MEDICARE, BC | END 2024-01-21 23:59 | disposition home or self-care (01) | LOC: LAB 08:00 | PROVIDERS: ATTEND Nurse Practitioner | DX: N39.0 Urinary tract infection, site not specified (principal) | CPT/HCPCS: 87086; 87181 ==